=== PATIENT | male | born 1955 | race Caucasian/White ===

== ENCOUNTER → 2018-11-15 07:05 | Outpatient (CLI) | payer OTHER, SELFPAY ==
[2018-11-15 08:09] LABS: Add Manual Diff / Slide Review NO; Basophils Absolute Auto 100 /uL (0-100); Basophils Percent Auto 0.9 % (0-2); Eosinophils Absolute Auto 500 /uL (0-450); Eosinophils Percent Auto 5.7 % (2-4); Hematocrit 45.7 % (41-53); Hemoglobin 15.6 g/dL (13.5-17.5); Lymphocytes Absolute Auto 2800 /uL (1100-4500); Lymphocytes Percent Auto 29.6 % (25-40); Mean Corpuscular Hemoglobin 31.5 PG (26-34); Mean Corpuscular Volume 92.5 fL (80-100); Monocytes Absolute Auto 800 /uL (0-900); Monocytes Percent Auto 8.5 % (3-14); Neutrophils Absolute Auto 5200 /uL (1500-7000); Neutrophils Percent Auto 55.3 % (50-75); Platelet Count 182 X10^3/uL (150-400); Red Blood Cell Count 4.94 X10^6/uL (4.5-5.9); Red Cell Distribution Width 13.1 % (11.6-14.8); White Blood Cell Count 9.4 X10^3/uL (4.5-11.0)
[2018-11-15 08:17] LABS: Alanine Aminotransferase 26 IU/L (21-72); Albumin 4.2 g/dL (3.5-5.0); Albumin Globulin Ratio 1.4 (1.0-2.8); Alkaline Phosphatase 50 U/L (38-126); Aspartate Aminotransferase 23 IU/L (17-59); Bilirubin Total 1.1 mg/dL (0.2-1.3); Blood Urea Nitrogen 16 mg/dL (9-20); Calcium 8.9 mg/dL (8.4-10.2); Carbon Dioxide 26 mmol/L (22-32); Chloride 105 mmol/L (98-107); Cholesterol 119 mg/dL (140-199); Estimated Glomerular Filt Rate > 60.0 mL/min (>60); Glucose 100 mg/dL (80-110); HDL Cholesterol 51 mg/dL (40-60); HEMOLYSIS < 15 (0-50); LDL Cholesterol Calculated 51 mg/dL (<100); Potassium 4.4 mmol/L (3.4-5.1); Sodium 140 mmol/L (137-145); Total Protein 7.2 g/dL (6.3-8.2); Triglycerides 84 mg/dL (35-150)
[2018-11-15 08:43] LABS: Prostate Specific Antigen 1.23 ng/mL (0.10-4.00)
[2018-11-18 12:27] LABS: Mitogen-NIL 6.67 IU/mL; NIL 0.01 IU/mL; QuantiFERON TB NEGATIVE (Negative); TB1-NIL 0.09 IU/mL; TB2-NIL 0.04 IU/mL
== END ==
PROVIDERS: Family Provider Dermatology; PCP Internal Medicine; Visit Provider Urology
DX: I10 Essential (primary) hypertension (principal); E78.00 Pure hypercholesterolemia, unspecified; M15.0 Primary generalized (osteo)arthritis; L40.9 Psoriasis, unspecified; L40.0 Psoriasis vulgaris; Z12.5 Encounter for screening for malignant neoplasm of prostate
CPT/HCPCS: 36415; 80053; 80061; 84153; 85025; 86480

== ENCOUNTER 2018-11-21 10:15 | Outpatient (RCR) | payer OTHER, SELFPAY ==
--- NOTE | 2018-09-14 15:14 | PT.OIE ---
Current Diagnoses Disorder of muscle, unspecified (09/14/18) Plantar fascial fibromatosis (09/14/18) Pain in unspecified foot (09/14/18) Provider Visit Care Team Role Provider Type Ryan Muniz MD Primary Care Provider Physician Specialty: Family Practice Address: [address] [place], [address] Email: [email or web address] Santiago Owen DPM Attending Provider Physician Specialty: Podiatry Address: [address] [place] [address], [id number] Email: [email or web address] Physical Therapy Initial Evaluation PT-OP-A Visit Information Start: 09/14/18 07:35 Freq: Status: Active Protocol: Document 09/14/18 13:00 AMB (Rec: 09/14/18 14:28 AMB [email or web address]) Out-Patient Physical Therapy Visit Information Visit Information Visit Type Initial Evaluation Visit Start Time 13:00 Visit Stop Time 13:50 Total Visit Minutes 50 Visit Number 1 PT-OP-B Current Condition Start: 09/14/18 07:35 Freq: Status: Active Protocol: Document 09/14/18 13:00 AMB (Rec: 09/14/18 13:13 AMB [id number]) Current Condition History of Current Condition Onset Date 4 years ago Current Complaints bilateral foot arch pain History of Current Condition Carlos states that his plantar fasciitis is better than it was 4 years ago when it started. He recently moved to [place] from [place] after retiring and has been swimming more which is helping . He saw the doctor because his previous orthotics were hurting more than helping. He notes that while his symptoms have improved, he continues to have pain with standing and walking. This limits the distance of hiking. He reports 0/10 pain in sitting, 1/10 pain in standing immediately upon standing, and after 2-3 miles of hiking, he wants to be done with hikng because of inner arch pain. His doctor told him that his overall tightness is affecting his feet, so he is looking for help with a lower extremity stretching program, and anything else that can help him increase his standing and hiking tolerance. Prior Treatments and Tests Prior PT helped, previous orthotics were hurting, so now using green super feet Treatment Goals Patient/Caregiver Goals Hike and stand without pain Prior Functional Status Baseline Function- ADL's Independent Baseline Function- Mobility Independent Current Functional Impairments (Reported) Functional Limitations- Mobility/Gait Pain with walking more than a couple miles. Personal Factors Other Personal Factors That May Effect hypertension, back pain, high Therapy/Recovery deductible PT-OP-C Subjective Start: 09/14/18 07:35 Freq: Status: Active Protocol: Document 09/14/18 13:00 AMB (Rec: 09/14/18 14:28 AMB [email or web address]) Patient Questionnaires Lower Extremity Functional Scale LEFS Score 70 LEFS Impairment 1 to 19% Impaired (Score 63-79 ) OP-PT Pain Assessment Location Medial Foot Pain Location Details bilateral arches Intensity 3 Scale Used Numeric (1 - 10) Description Burning PT-OP-J Posture/Palpation/Skin Start: 09/14/18 07:35 Freq: Status: Active Protocol: Document 09/14/18 13:00 AMB (Rec: 09/14/18 14:57 AMB [email or web address]) Palpation Assessment Location One Palpation Details No heel pain with palpation. R Leg appears short in supine. Increased wear on R shoe in comparison to L. Good forefoot mobility. PT-OP-K Range of Motion Start: 09/14/18 07:35 Freq: Status: Active Protocol: Document 09/14/18 13:00 AMB (Rec: 09/14/18 14:54 AMB [email or web address]) Hip Goniometric Range of Motion Hip Measured in Degrees Right Passive Testing Position Supine Straight Leg Raise 60 Left Passive Testing Position Supine Straight Leg Raise 45 Ankle and Foot Goniometric Range of Motion Ankle and Foot Measured in Degrees Right Active Testing Position Sitting Dorsiflexion with Knee Flexed 10 Plantarflexion 40 Inversion 20 Eversion 20 Left Active Testing Position Sitting Dorsiflexion with Knee Flexed 10 Plantarflexion 35 Inversion 15 Eversion 20 PT-OP-L Special Tests Start: 09/14/18 07:35 Freq: Status: Active Protocol: Document 09/14/18 13:00 AMB (Rec: 09/14/18 14:58 AMB [email or web address]) Special Tests Other Special Tests Special Tests Windlass negative bilaterally in weightbearing. PT-OP-M Strength Start: 09/14/18 07:35 Freq: Status: Active Protocol: Document 09/14/18 13:00 AMB (Rec: 09/14/18 14:54 AMB [email or web address]) Ankle/Foot Strength Ankle and Foot Manual Muscle Testing Left Dorsiflexion (L4) 5 Normal Plantarflexion (S1) 5 Normal Inversion 3+ Fair+ Eversion (S1) 4 Good Right Dorsiflexion (L4) 5 Normal Plantarflexion (S1) 5 Normal Inversion 4 Good Eversion (S1) 4 Good PT-OP-Q Treatments Start: 09/14/18 07:35 Freq: Status: Active Protocol: Document 09/14/18 13:00 AMB (Rec: 09/14/18 14:54 AMB [email or web address]) Therapeutic Exercises Sitting Exercises 2 Sitting Exercise Name V sit adductor stretch Reps/Minutes 30x2 1 Sitting Exercise Name inversion Resistance #3 t band Reps/Minutes 2x10 Standing Exercises 1 Standing Exercise Name calf stretch toes against wall Reps/Minutes 30x2 Other Exercises 1 Other Exercise Name downward dog Reps/Minutes 15x2 PT-OP-T Assessment and Plan Start: 09/14/18 07:35 Freq: Status: Active Protocol: Document 09/14/18 13:00 AMB (Rec: 09/14/18 15:14 AMB [email or web address]) Physical Therapy Assessment Rehab Potential Rehabilitation Potential Good Evaluation Complexity Number of Personal Factors/Comorbidities 1-2 Number of Body Systems Impaired 4 or More Clinical Presentation at Evaluation Stable Impairments Impairments Functional Mobility Gait Pain Posture ROM Strength Goals Two Impairment activity tolerance Short Term Goal (STG) Carlos will stand for 5 minutes without foot pain. STG Duration 5 weeks Skilled Nursing Goal (LTG) Carlos will hike for 5 miles with 2/10 foot pain or less. LTG Duration 10 weeks One Impairment ROM Short Term Goal (STG) Carlos will increase his straight leg raise to 60 degrees bilaterally. STG Duration 5 weeks Skilled Nursing Goal (LTG) Carlos will be independent with a stretching and strengthening HEP. LTG Duration 10 weeks Assessment Summary Assessment Carlos presents to PT with L>R tightness in his trunk and lower extremities. This is a factor in his chronic bilateral arch pain. He also presents with functional leg length discrepancy (L leg short) and increased wear on his right shoe, along with left tibialis posterior weakness. He will benefit from a specific stretching and strengthening program to address these impairments both on land and in the pool as he has found the pool to be very helpful with his pain. Physical Therapy Plan Frequency and Duration Frequency of Treatment 2x/Week Duration of Treatment 10 weeks Plan of Care Start Date 09/14/18 Plan of Care End Date 11/23/18 Therapeutic Interventions Therapeutic Interventions Aquatic Therapy Gait Training Joint Mobilizations Manual Therapy Neuromuscular Re-education Self-Care/Home Management Soft Tissue Mobilization Therapeutic Activities Therapeutic Exercises Modalities Cold Pack/Ice Massage Electric Stimulation Ultrasound Next Visit Focus/Plan Next Note Type Treatment Note Next Visit Plan Progress stretching HEP- QL stretch on L, balance training for foot strengthening.
--- NOTE | 2018-09-14 15:15 | PT.OPPOC ---
Current Diagnoses Disorder of muscle, unspecified (09/14/18) Plantar fascial fibromatosis (09/14/18) Pain in unspecified foot (09/14/18) Provider Visit Care Team Role Provider Type Ryan Muniz MD Primary Care Provider Physician Specialty: Family Practice Address: [address] [place], [address] Email: [email or web address] Santiago Owen DPM Attending Provider Physician Specialty: Podiatry Address: [address] [place] [address], [phone] Email: [email or web address] Plan Of Care PT-OP-T Assessment and Plan Start: 09/14/18 07:35 Freq: Status: Active Protocol: Document 09/14/18 13:00 AMB (Rec: 09/14/18 15:14 AMB [email or web address]) Physical Therapy Assessment Rehab Potential Rehabilitation Potential Good Evaluation Complexity Number of Personal Factors/Comorbidities 1-2 Number of Body Systems Impaired 4 or More Clinical Presentation at Evaluation Stable Impairments Impairments Functional Mobility Gait Pain Posture ROM Strength Goals Two Impairment activity tolerance Short Term Goal (STG) Carlos will stand for 5 minutes without foot pain. STG Duration 5 weeks Auditing Manager Goal (LTG) Carlos will hike for 5 miles with 2/10 foot pain or less. LTG Duration 10 weeks One Impairment ROM Short Term Goal (STG) Carlos will increase his straight leg raise to 60 degrees bilaterally. STG Duration 5 weeks Jail Goal (LTG) Carlos will be independent with a stretching and strengthening HEP. LTG Duration 10 weeks Assessment Summary Assessment Carlos presents to PT with L>R tightness in his trunk and lower extremities. This is a factor in his chronic bilateral arch pain. He also presents with functional leg length discrepancy (L leg short) and increased wear on his right shoe, along with left tibialis posterior weakness. He will benefit from a specific stretching and strengthening program to address these impairments both on land and in the pool as he has found the pool to be very helpful with his pain. Physical Therapy Plan Frequency and Duration Frequency of Treatment 2x/Week Duration of Treatment 10 weeks Plan of Care Start Date 09/14/18 Plan of Care End Date 11/23/18 Therapeutic Interventions Therapeutic Interventions Aquatic Therapy Gait Training Joint Mobilizations Manual Therapy Neuromuscular Re-education Self-Care/Home Management Soft Tissue Mobilization Therapeutic Activities Therapeutic Exercises Modalities Cold Pack/Ice Massage Electric Stimulation Ultrasound Next Visit Focus/Plan Next Note Type Treatment Note Next Visit Plan Progress stretching HEP- QL stretch on L, balance training for foot strengthening. Plan of Care Dates Plan of Care Start Date 09/14/18 Plan of Care End Date 11/23/18 Please Sign and Return: I have reviewed this Plan of Care and certify that the skilled therapy services above are required to meet the patient?s needs. Physician Signature Date Printed Name and Credentials Clinical Instructor Signature Printed Name and Credentials
--- NOTE | 2018-10-03 15:56 | PT.OTN ---
Current Diagnoses Disorder of muscle, unspecified (10/03/18) Plantar fascial fibromatosis (10/03/18) Pain in unspecified foot (10/03/18) Physical Therapy Treatment Note PT-OP-A Visit Information Start: 09/14/18 07:35 Freq: Status: Active Protocol: Document 10/03/18 09:45 BS (Rec: 10/03/18 12:07 BS [id number]) Out-Patient Physical Therapy Visit Information Visit Information Visit Type Treatment Note Visit Start Time 09:45 Visit Stop Time 10:28 Total Visit Minutes 43 Visit Number 2 PT-OP-B Current Condition Start: 09/14/18 07:35 Freq: Status: Active Protocol: Document 09/14/18 13:00 AMB (Rec: 09/14/18 13:13 AMB [id number]) Current Condition History of Current Condition Onset Date 4 years ago Current Complaints bilateral foot arch pain History of Current Condition Carlos states that his plantar fasciitis is better than it was 4 years ago when it started. He recently moved to [place] from [place] after retiring and has been swimming more which is helping . He saw the doctor because his previous orthotics were hurting more than helping. He notes that while his symptoms have improved, he continues to have pain with standing and walking. This limits the distance of hiking. He reports 0/10 pain in sitting, 1/10 pain in standing immediately upon standing, and after 2-3 miles of hiking, he wants to be done with hikng because of inner arch pain. His doctor told him that his overall tightness is affecting his feet, so he is looking for help with a lower extremity stretching program, and anything else that can help him increase his standing and hiking tolerance. Prior Treatments and Tests Prior PT helped, previous orthotics were hurting, so now using green super feet Treatment Goals Patient/Caregiver Goals Hike and stand without pain Prior Functional Status Baseline Function- ADL's Independent Baseline Function- Mobility Independent Current Functional Impairments (Reported) Functional Limitations- Mobility/Gait Pain with walking more than a couple miles. Personal Factors Other Personal Factors That May Effect hypertension, back pain, high Therapy/Recovery deductible PT-OP-C Subjective Start: 09/14/18 07:35 Freq: Status: Active Protocol: Document 10/03/18 09:45 BS (Rec: 10/03/18 12:08 BS [id number]) OP-PT Subjective Patient Comments Patient Comments Pt has many questions regarding stretching program and different variations that he can do at home. PT-OP-J Posture/Palpation/Skin Start: 09/14/18 07:35 Freq: Status: Active Protocol: Document 09/14/18 13:00 AMB (Rec: 09/14/18 14:57 AMB [email or web address]) Palpation Assessment Location One Palpation Details No heel pain with palpation. R Leg appears short in supine. Increased wear on R shoe in comparison to L. Good forefoot mobility. PT-OP-K Range of Motion Start: 09/14/18 07:35 Freq: Status: Active Protocol: Document 09/14/18 13:00 AMB (Rec: 09/14/18 14:54 AMB [email or web address]) Hip Goniometric Range of Motion Hip Measured in Degrees Right Passive Testing Position Supine Straight Leg Raise 60 Left Passive Testing Position Supine Straight Leg Raise 45 Ankle and Foot Goniometric Range of Motion Ankle and Foot Measured in Degrees Right Active Testing Position Sitting Dorsiflexion with Knee Flexed 10 Plantarflexion 40 Inversion 20 Eversion 20 Left Active Testing Position Sitting Dorsiflexion with Knee Flexed 10 Plantarflexion 35 Inversion 15 Eversion 20 PT-OP-L Special Tests Start: 09/14/18 07:35 Freq: Status: Active Protocol: Document 09/14/18 13:00 AMB (Rec: 09/14/18 14:58 AMB [email or web address]) Special Tests Other Special Tests Special Tests Windlass negative bilaterally in weightbearing. PT-OP-M Strength Start: 09/14/18 07:35 Freq: Status: Active Protocol: Document 09/14/18 13:00 AMB (Rec: 09/14/18 14:54 AMB [email or web address]) Ankle/Foot Strength Ankle and Foot Manual Muscle Testing Left Dorsiflexion (L4) 5 Normal Plantarflexion (S1) 5 Normal Inversion 3+ Fair+ Eversion (S1) 4 Good Right Dorsiflexion (L4) 5 Normal Plantarflexion (S1) 5 Normal Inversion 4 Good Eversion (S1) 4 Good PT-OP-Q Treatments Start: 09/14/18 07:35 Freq: Status: Active Protocol: Document 10/03/18 09:45 BS (Rec: 10/03/18 12:07 BS [id number]) Gym Equipment Shuttle Balance 1 Details Shuttle Balance: ant/post/ lateral Reps/Duration x2 min each Comments Red Therapeutic Exercises Sitting Exercises 3 Sitting Exercise Name Sitting hamstring stretch Reps/Minutes 2x30 Comments VC/TC for flat back posture 2 Sitting Exercise Name V sit adductor stretch Reps/Minutes 30x2 Comments TC/VC for correct form 1 Sitting Exercise Name L ankle inversion Resistance #3 t band Reps/Minutes 2x10 Standing Exercises 3 Standing Exercise Name Standing adductor stretch Reps/Minutes 2x30 2 Standing Exercise Name Standing hamstring stretch Reps/Minutes 3x30 each Comments at stairs 1 Standing Exercise Name gastroc/soleus stretch variations Reps/Minutes 30x2 each Comments standing toe against step, calf drop off of step, knee bent soleus stretch Other Exercises 1 Other Exercise Name downward dog Reps/Minutes 15x2, x10 bent knee alternations Comments VC/TC for correct technique Neuro Re-Education Treatment Balance Activities 1 Details Single limb stance Surface firm Reps/Duration x5 reps each leg Comments poor SL stance <10 seconds with each LE. PT-OP-T Assessment and Plan Start: 09/14/18 07:35 Freq: Status: Active Protocol: Document 10/03/18 09:45 BS (Rec: 10/03/18 12:07 BS [email or web address]) Physical Therapy Assessment Assessment Summary Assessment PT focused on B LE stretching program. Pt required a lot of education regarding correct form and variations of stretches he can do on his own for B LE muscle tightness. Pt also demo's poor single limb balance which will be further addressed next session. Physical Therapy Plan Next Visit Focus/Plan Next Note Type Treatment Note Next Visit Plan Review home stretching program and form with each. Balance training, intrinsic foot strengthening exercises.
--- NOTE | 2018-10-08 13:01 | PT.OTN ---
Current Diagnoses Disorder of muscle, unspecified (10/08/18) Plantar fascial fibromatosis (10/08/18) Pain in unspecified foot (10/08/18) Physical Therapy Treatment Note PT-OP-A Visit Information Start: 09/14/18 07:35 Freq: Status: Active Protocol: Document 10/08/18 09:45 BS (Rec: 10/08/18 09:48 BS [email or web address]) Out-Patient Physical Therapy Visit Information Visit Information Visit Type Treatment Note Visit Start Time 09:10 Visit Stop Time 09:45 Total Visit Minutes 35 Visit Number 3 PT-OP-B Current Condition Start: 09/14/18 07:35 Freq: Status: Active Protocol: Document 09/14/18 13:00 AMB (Rec: 09/14/18 13:13 AMB [id number]) Current Condition History of Current Condition Onset Date 4 years ago Current Complaints bilateral foot arch pain History of Current Condition Carlos states that his plantar fasciitis is better than it was 4 years ago when it started. He recently moved to [place] from [place] after retiring and has been swimming more which is helping . He saw the doctor because his previous orthotics were hurting more than helping. He notes that while his symptoms have improved, he continues to have pain with standing and walking. This limits the distance of hiking. He reports 0/10 pain in sitting, 1/10 pain in standing immediately upon standing, and after 2-3 miles of hiking, he wants to be done with hikng because of inner arch pain. His doctor told him that his overall tightness is affecting his feet, so he is looking for help with a lower extremity stretching program, and anything else that can help him increase his standing and hiking tolerance. Prior Treatments and Tests Prior PT helped, previous orthotics were hurting, so now using green super feet Treatment Goals Patient/Caregiver Goals Hike and stand without pain Prior Functional Status Baseline Function- ADL's Independent Baseline Function- Mobility Independent Current Functional Impairments (Reported) Functional Limitations- Mobility/Gait Pain with walking more than a couple miles. Personal Factors Other Personal Factors That May Effect hypertension, back pain, high Therapy/Recovery deductible PT-OP-C Subjective Start: 09/14/18 07:35 Freq: Status: Active Protocol: Document 10/08/18 09:45 BS (Rec: 10/08/18 09:48 BS [email or web address]) OP-PT Subjective Patient Comments Patient Comments Pt states he has been compliant with home stretching program. He still has questions regarding ankle tband exercises. PT-OP-J Posture/Palpation/Skin Start: 09/14/18 07:35 Freq: Status: Active Protocol: Document 09/14/18 13:00 AMB (Rec: 09/14/18 14:57 AMB [email or web address]) Palpation Assessment Location One Palpation Details No heel pain with palpation. R Leg appears short in supine. Increased wear on R shoe in comparison to L. Good forefoot mobility. PT-OP-K Range of Motion Start: 09/14/18 07:35 Freq: Status: Active Protocol: Document 09/14/18 13:00 AMB (Rec: 09/14/18 14:54 AMB [email or web address]) Hip Goniometric Range of Motion Hip Measured in Degrees Right Passive Testing Position Supine Straight Leg Raise 60 Left Passive Testing Position Supine Straight Leg Raise 45 Ankle and Foot Goniometric Range of Motion Ankle and Foot Measured in Degrees Right Active Testing Position Sitting Dorsiflexion with Knee Flexed 10 Plantarflexion 40 Inversion 20 Eversion 20 Left Active Testing Position Sitting Dorsiflexion with Knee Flexed 10 Plantarflexion 35 Inversion 15 Eversion 20 PT-OP-L Special Tests Start: 09/14/18 07:35 Freq: Status: Active Protocol: Document 09/14/18 13:00 AMB (Rec: 09/14/18 14:58 AMB [email or web address]) Special Tests Other Special Tests Special Tests Windlass negative bilaterally in weightbearing. PT-OP-M Strength Start: 09/14/18 07:35 Freq: Status: Active Protocol: Document 09/14/18 13:00 AMB (Rec: 09/14/18 14:54 AMB [email or web address]) Ankle/Foot Strength Ankle and Foot Manual Muscle Testing Left Dorsiflexion (L4) 5 Normal Plantarflexion (S1) 5 Normal Inversion 3+ Fair+ Eversion (S1) 4 Good Right Dorsiflexion (L4) 5 Normal Plantarflexion (S1) 5 Normal Inversion 4 Good Eversion (S1) 4 Good PT-OP-Q Treatments Start: 09/14/18 07:35 Freq: Status: Active Protocol: Document 10/08/18 09:45 BS (Rec: 10/08/18 11:52 BS [email or web address]) Gym Equipment Shuttle Balance 1 Details Shuttle Balance: ant/post/ lateral Reps/Duration x2 min each Comments Red. Occasional UE support required for steadying. Therapeutic Exercises Sitting Exercises 1 Sitting Exercise Name L ankle inversion Resistance #3 t band Reps/Minutes 2x10 Comments VCs for correct technique. Standing Exercises 3 Standing Exercise Name Standing adductor stretch at stairs Side bilateral Reps/Minutes 2x30 each 2 Standing Exercise Name Standing hamstring stretch at stairs Side bilateral Reps/Minutes 2x30 each 1 Standing Exercise Name Gastroc/Soleus stretch at stairs Side bilateral Reps/Minutes 2x30 each Comments knee straight and knee bent. VCs for correct form Other Exercises 1 Other Exercise Name downward dog Side bilateral Reps/Minutes x10 bent knee alternations Comments Pt has trouble with position due to B HS tightness Neuro Re-Education Treatment Balance Activities 3 Details Exaggerated marching in tandem Surface firm, barefoot Reps/Duration 4 laps in parallel bars Comments Emphasize slow and control, hold at top of hip flexion for increased balance challenge 2 Details Tandem Walking Surface firm, barefoot 1 Details Single limb stance Surface firm and foam. Barefoot Reps/Duration x10 reps each for max time Comments poor SL stance <15 seconds with each LE. PT-OP-T Assessment and Plan Start: 09/14/18 07:35 Freq: Status: Active Protocol: Document 10/08/18 09:45 BS (Rec: 10/08/18 11:52 BS [email or web address]) Physical Therapy Assessment Assessment Summary Assessment Reviewed stretching program with patient and he reports he is becoming more independent with this. Incorporated balance challenging activities today as pt demo's decreased balance especially single limb . Pt's single limb balance has improved since IE. Physical Therapy Plan Next Visit Focus/Plan Next Note Type Treatment Note Next Visit Plan Stretching program, single limb balance challenging activities. Will see pt when he returns from vacation to assess progress and then he plans to transition to aquatic therapy.
--- NOTE | 2018-10-29 17:02 | PT.OTN ---
Current Diagnoses Disorder of muscle, unspecified (10/08/18) Plantar fascial fibromatosis (10/08/18) Pain in unspecified foot (10/08/18) Physical Therapy Treatment Note PT-OP-A Visit Information Start: 09/14/18 07:35 Freq: Status: Active Protocol: Document 10/29/18 11:00 SAK (Rec: 10/29/18 16:51 SAK [id number]) Out-Patient Physical Therapy Visit Information Visit Information Visit Type Treatment Note Visit Start Time 09:10 Visit Stop Time 09:45 Total Visit Minutes 45 Visit Number 4 PT-OP-B Current Condition Start: 09/14/18 07:35 Freq: Status: Active Protocol: Document 09/14/18 13:00 AMB (Rec: 09/14/18 13:13 AMB [id number]) Current Condition History of Current Condition Onset Date 4 years ago Current Complaints bilateral foot arch pain History of Current Condition Carlos states that his plantar fasciitis is better than it was 4 years ago when it started. He recently moved to [place] from [place] after retiring and has been swimming more which is helping . He saw the doctor because his previous orthotics were hurting more than helping. He notes that while his symptoms have improved, he continues to have pain with standing and walking. This limits the distance of hiking. He reports 0/10 pain in sitting, 1/10 pain in standing immediately upon standing, and after 2-3 miles of hiking, he wants to be done with hikng because of inner arch pain. His doctor told him that his overall tightness is affecting his feet, so he is looking for help with a lower extremity stretching program, and anything else that can help him increase his standing and hiking tolerance. Prior Treatments and Tests Prior PT helped, previous orthotics were hurting, so now using green super feet Treatment Goals Patient/Caregiver Goals Hike and stand without pain Prior Functional Status Baseline Function- ADL's Independent Baseline Function- Mobility Independent Current Functional Impairments (Reported) Functional Limitations- Mobility/Gait Pain with walking more than a couple miles. Personal Factors Other Personal Factors That May Effect hypertension, back pain, high Therapy/Recovery deductible PT-OP-C Subjective Start: 09/14/18 07:35 Freq: Status: Active Protocol: Document 10/29/18 11:00 SAK (Rec: 10/29/18 16:51 SAK [id number]) OP-PT Subjective Patient Comments Patient Comments States he is hoping to get back to being able to hike further. No pain with swimming, wants to know what else he can do in the pool. Has been compliant with HEP. Some dec in pain but hiking/ walking still limited. PT-OP-J Posture/Palpation/Skin Start: 09/14/18 07:35 Freq: Status: Active Protocol: Document 09/14/18 13:00 AMB (Rec: 09/14/18 14:57 AMB [email or web address]) Palpation Assessment Location One Palpation Details No heel pain with palpation. R Leg appears short in supine. Increased wear on R shoe in comparison to L. Good forefoot mobility. PT-OP-K Range of Motion Start: 09/14/18 07:35 Freq: Status: Active Protocol: Document 09/14/18 13:00 AMB (Rec: 09/14/18 14:54 AMB [email or web address]) Hip Goniometric Range of Motion Hip Measured in Degrees Right Passive Testing Position Supine Straight Leg Raise 60 Left Passive Testing Position Supine Straight Leg Raise 45 Ankle and Foot Goniometric Range of Motion Ankle and Foot Measured in Degrees Right Active Testing Position Sitting Dorsiflexion with Knee Flexed 10 Plantarflexion 40 Inversion 20 Eversion 20 Left Active Testing Position Sitting Dorsiflexion with Knee Flexed 10 Plantarflexion 35 Inversion 15 Eversion 20 PT-OP-L Special Tests Start: 09/14/18 07:35 Freq: Status: Active Protocol: Document 09/14/18 13:00 AMB (Rec: 09/14/18 14:58 AMB [email or web address]) Special Tests Other Special Tests Special Tests Windlass negative bilaterally in weightbearing. PT-OP-M Strength Start: 09/14/18 07:35 Freq: Status: Active Protocol: Document 09/14/18 13:00 AMB (Rec: 09/14/18 14:54 AMB [email or web address]) Ankle/Foot Strength Ankle and Foot Manual Muscle Testing Left Dorsiflexion (L4) 5 Normal Plantarflexion (S1) 5 Normal Inversion 3+ Fair+ Eversion (S1) 4 Good Right Dorsiflexion (L4) 5 Normal Plantarflexion (S1) 5 Normal Inversion 4 Good Eversion (S1) 4 Good PT-OP-Q Treatments Start: 09/14/18 07:35 Freq: Status: Active Protocol: Document 10/08/18 09:45 BS (Rec: 10/08/18 11:52 BS [email or web address]) Gym Equipment Shuttle Balance 1 Details Shuttle Balance: ant/post/ lateral Reps/Duration x2 min each Comments Red. Occasional UE support required for steadying. Therapeutic Exercises Sitting Exercises 1 Sitting Exercise Name L ankle inversion Resistance #3 t band Reps/Minutes 2x10 Comments VCs for correct technique. Standing Exercises 3 Standing Exercise Name Standing adductor stretch at stairs Side bilateral Reps/Minutes 2x30 each 2 Standing Exercise Name Standing hamstring stretch at stairs Side bilateral Reps/Minutes 2x30 each 1 Standing Exercise Name Gastroc/Soleus stretch at stairs Side bilateral Reps/Minutes 2x30 each Comments knee straight and knee bent. VCs for correct form Other Exercises 1 Other Exercise Name downward dog Side bilateral Reps/Minutes x10 bent knee alternations Comments Pt has trouble with position due to B HS tightness Neuro Re-Education Treatment Balance Activities 3 Details Exaggerated marching in tandem Surface firm, barefoot Reps/Duration 4 laps in parallel bars Comments Emphasize slow and control, hold at top of hip flexion for increased balance challenge 2 Details Tandem Walking Surface firm, barefoot 1 Details Single limb stance Surface firm and foam. Barefoot Reps/Duration x10 reps each for max time Comments poor SL stance <15 seconds with each LE. PT-OP-S Aquatic Treatment Start: 10/29/18 16:51 Freq: Status: Active Protocol: Document 10/29/18 11:00 SAK (Rec: 10/29/18 16:58 SAK [id number]) Aquatics Treatment Pool Entry/Exit Pool Entry/Exit Method Stairs Assistance Independent Water Walking walk with fins Water Level Chest Level Walking Equipment short fins forward, march, straight leg march Water Level Chest Level Level of Assistance Verbal Cues Lower Extremity Exercises hip flex/ext, ab/ad, circles Body Position Standing Water Level Chest Level Reps/Duration 10x ea Lower Extremity Stretches HS, ITB, hip add, quad Body Position Standing Water Level Chest Level Equipment Small Noodle Reps/Duration 2x HC stretch Equipment Small Noodle Reps/Duration 2x Comments pool wall, noodle Balance SLS Body Position Standing Water Level Chest Level [place] Activities [place] Activities Bicycle Cross Country Running Hip Abduction/Adduction Sit Kicks Other Activities Run with fins Equipment flotation belt (XL), Duration 12 min Comments included 6 min of intervals 15 :30 Aquatic Yoga Aquatic Yoga Downward Dog (Wall) Duration (Minutes) 2 PT-OP-T Assessment and Plan Start: 09/14/18 07:35 Freq: Status: Active Protocol: Document 10/29/18 11:00 [facility] (Rec: 10/29/18 16:51 [facility] [id number]) Physical Therapy Assessment Goals Two Impairment activity tolerance Short Term Goal (STG) Carlos will stand for 5 minutes without foot pain. STG Duration 5 weeks Snf Goal (LTG) Carlos will hike for 5 miles with 2/10 foot pain or less. LTG Duration 10 weeks One Impairment ROM Short Term Goal (STG) Carlos will increase his straight leg raise to 60 degrees bilaterally. STG Duration 5 weeks Snf Goal (LTG) Carlos will be independent with a stretching and strengthening HEP. LTG Duration 10 weeks Assessment Summary Assessment Patient tolerated aquatic therapy well with emphasis on LE ROM and strengthening in gravity minimized and eliminated environment. Reported feeling stretch of his arches with cross-country ski with ankle df in deep water. Was instructed to ice heels and arches after session . SLS activities challenging. Physical Therapy Plan Frequency and Duration Frequency of Treatment 2x/Week Duration of Treatment 10 weeks Plan of Care Start Date 09/14/18 Plan of Care End Date 11/23/18 Therapeutic Interventions Therapeutic Interventions Aquatic Therapy Gait Training Joint Mobilizations Manual Therapy Neuromuscular Re-education Self-Care/Home Management Soft Tissue Mobilization Therapeutic Activities Therapeutic Exercises Modalities Cold Pack/Ice Massage Electric Stimulation Ultrasound Next Visit Focus/Plan Next Note Type Treatment Note Next Visit Plan Evaluate response to aquatic ex session. Consider addition of short foot exercise. Continue stretching, single leg balance activities.
--- NOTE | 2018-10-31 13:19 | PT.OTN ---
Current Diagnoses Disorder of muscle, unspecified (10/31/18) Plantar fascial fibromatosis (10/31/18) Pain in unspecified foot (10/31/18) Physical Therapy Treatment Note PT-OP-A Visit Information Start: 09/14/18 07:35 Freq: Status: Active Protocol: Document 10/31/18 10:30 BS (Rec: 10/31/18 11:52 BS [id number]) Out-Patient Physical Therapy Visit Information Visit Information Visit Type Treatment Note Visit Start Time 09:45 Visit Stop Time 10:30 Total Visit Minutes 45 Visit Number 5 PT-OP-B Current Condition Start: 09/14/18 07:35 Freq: Status: Active Protocol: Document 09/14/18 13:00 AMB (Rec: 09/14/18 13:13 AMB [id number]) Current Condition History of Current Condition Onset Date 4 years ago Current Complaints bilateral foot arch pain History of Current Condition Carlos states that his plantar fasciitis is better than it was 4 years ago when it started. He recently moved to [place] from [place] after retiring and has been swimming more which is helping . He saw the doctor because his previous orthotics were hurting more than helping. He notes that while his symptoms have improved, he continues to have pain with standing and walking. This limits the distance of hiking. He reports 0/10 pain in sitting, 1/10 pain in standing immediately upon standing, and after 2-3 miles of hiking, he wants to be done with hikng because of inner arch pain. His doctor told him that his overall tightness is affecting his feet, so he is looking for help with a lower extremity stretching program, and anything else that can help him increase his standing and hiking tolerance. Prior Treatments and Tests Prior PT helped, previous orthotics were hurting, so now using green super feet Treatment Goals Patient/Caregiver Goals Hike and stand without pain Prior Functional Status Baseline Function- ADL's Independent Baseline Function- Mobility Independent Current Functional Impairments (Reported) Functional Limitations- Mobility/Gait Pain with walking more than a couple miles. Personal Factors Other Personal Factors That May Effect hypertension, back pain, high Therapy/Recovery deductible PT-OP-C Subjective Start: 09/14/18 07:35 Freq: Status: Active Protocol: Document 10/31/18 10:30 BS (Rec: 10/31/18 11:52 BS [id number]) OP-PT Subjective Patient Comments Patient Comments Pt reports that he really enjoys his pool therapy and finds it beneficial. On vacation he did have some ankle and R arch pain after prolonged standing with fishing. PT-OP-J Posture/Palpation/Skin Start: 09/14/18 07:35 Freq: Status: Active Protocol: Document 09/14/18 13:00 AMB (Rec: 09/14/18 14:57 AMB [email or web address]) Palpation Assessment Location One Palpation Details No heel pain with palpation. R Leg appears short in supine. Increased wear on R shoe in comparison to L. Good forefoot mobility. PT-OP-K Range of Motion Start: 09/14/18 07:35 Freq: Status: Active Protocol: Document 09/14/18 13:00 AMB (Rec: 09/14/18 14:54 AMB [email or web address]) Hip Goniometric Range of Motion Hip Measured in Degrees Right Passive Testing Position Supine Straight Leg Raise 60 Left Passive Testing Position Supine Straight Leg Raise 45 Ankle and Foot Goniometric Range of Motion Ankle and Foot Measured in Degrees Right Active Testing Position Sitting Dorsiflexion with Knee Flexed 10 Plantarflexion 40 Inversion 20 Eversion 20 Left Active Testing Position Sitting Dorsiflexion with Knee Flexed 10 Plantarflexion 35 Inversion 15 Eversion 20 PT-OP-L Special Tests Start: 09/14/18 07:35 Freq: Status: Active Protocol: Document 09/14/18 13:00 AMB (Rec: 09/14/18 14:58 AMB [email or web address]) Special Tests Other Special Tests Special Tests Windlass negative bilaterally in weightbearing. PT-OP-M Strength Start: 09/14/18 07:35 Freq: Status: Active Protocol: Document 09/14/18 13:00 AMB (Rec: 09/14/18 14:54 AMB [email or web address]) Ankle/Foot Strength Ankle and Foot Manual Muscle Testing Left Dorsiflexion (L4) 5 Normal Plantarflexion (S1) 5 Normal Inversion 3+ Fair+ Eversion (S1) 4 Good Right Dorsiflexion (L4) 5 Normal Plantarflexion (S1) 5 Normal Inversion 4 Good Eversion (S1) 4 Good PT-OP-Q Treatments Start: 09/14/18 07:35 Freq: Status: Active Protocol: Document 10/31/18 10:30 BS (Rec: 10/31/18 11:59 BS [id number]) Gym Equipment Shuttle Balance 1 Details Shuttle Balance: ant/post/ lateral Comments Red. Occasional UE support required for steadying. Lateral more challenging. WBOS and NBOS. Ant/post with alternating arms. Therapeutic Exercises Supine Exercises 2 Supine Exercise Name AROM ankle inversion Side left Comments TCs for ankle motion only 1 Supine Exercise Name Ankle Inversion, DF Side left Equipment Used #1 band Reps/Minutes x20 Sitting Exercises 4 Sitting Exercise Name Towel curls Side left Reps/Minutes x20 Standing Exercises 4 Standing Exercise Name Ankle inversion Side left Equipment Used #3 band Reps/Minutes x10 Comments poor technique 2 Standing Exercise Name Standing hamstring stretch at stairs Side bilateral Reps/Minutes 2x30 each 1 Standing Exercise Name Gastroc/Soleus stretch at stairs Side bilateral Reps/Minutes 2x30 each Comments knee straight and knee bent. VCs for correct form Neuro Re-Education Treatment Balance Activities 1 Details Single limb stance Surface Firm. Reps/Duration x10 reps each for max time Comments SL balance improving, a few trials >15 seconds today. Self-Care/Home Management Treatment Education Other Education Assessed footwear and educated pt on proper footwear and heel-toe drop considerations with plantar fasciitis. Bottom of shoes severely worn. PT-OP-S Aquatic Treatment Start: 10/29/18 16:51 Freq: Status: Active Protocol: Document 10/29/18 11:00 [facility] (Rec: 10/29/18 16:58 [facility] [id number]) Aquatics Treatment Pool Entry/Exit Pool Entry/Exit Method Stairs Assistance Independent Water Walking walk with fins Water Level Chest Level Walking Equipment short fins forward, september, straight leg september Water Level Chest Level Level of Assistance Verbal Cues Lower Extremity Exercises hip flex/ext, ab/ad, circles Body Position Standing Water Level Chest Level Reps/Duration 10x ea Lower Extremity Stretches HS, ITB, hip add, quad Body Position Standing Water Level Chest Level Equipment Small Noodle Reps/Duration 2x HC stretch Equipment Small Noodle Reps/Duration 2x Comments pool wall, noodle Balance SLS Body Position Standing Water Level Chest Level [place] Activities [place] Activities Bicycle Cross Country Running Hip Abduction/Adduction Sit Kicks Other Activities Run with fins Equipment flotation belt (XL), Duration 12 min Comments included 6 min of intervals 15 :30 Aquatic Yoga Aquatic Yoga Downward Dog (Wall) Duration (Minutes) 2 PT-OP-T Assessment and Plan Start: 09/14/18 07:35 Freq: Status: Active Protocol: Document 10/31/18 10:30 BS (Rec: 10/31/18 11:52 BS [id number]) Physical Therapy Assessment Assessment Summary Assessment Pt had many questions regarding footwear and consideration of a shoe with a wider toe box. His shoes were severely worn on the bottoms, advised to get new shoes. Educated on heel-toe drop considerations with his plantar fasciitis history. Physical Therapy Plan Next Visit Focus/Plan Next Note Type Treatment Note Next Visit Plan Review HEP for stretching if needed. Assess progress and need for future visits, possible d/c.
--- NOTE | 2018-11-05 14:55 | PT.OTN ---
Current Diagnoses Disorder of muscle, unspecified (11/05/18) Plantar fascial fibromatosis (11/05/18) Pain in unspecified foot (11/05/18) Physical Therapy Treatment Note PT-OP-A Visit Information Start: 09/14/18 07:35 Freq: Status: Active Protocol: Document 11/05/18 10:15 LJ (Rec: 11/05/18 14:55 LJ [email or web address]) Out-Patient Physical Therapy Visit Information Visit Information Visit Type Aquatic Treatment Note Visit Start Time 10:15 Visit Stop Time 11:00 Total Visit Minutes 45 Visit Number 1 PT-OP-B Current Condition Start: 09/14/18 07:35 Freq: Status: Active Protocol: Document 09/14/18 13:00 AMB (Rec: 09/14/18 13:13 AMB [id number]) Current Condition History of Current Condition Onset Date 4 years ago Current Complaints bilateral foot arch pain History of Current Condition Carlos states that his plantar fasciitis is better than it was 4 years ago when it started. He recently moved to [place] from [place] after retiring and has been swimming more which is helping . He saw the doctor because his previous orthotics were hurting more than helping. He notes that while his symptoms have improved, he continues to have pain with standing and walking. This limits the distance of hiking. He reports 0/10 pain in sitting, 1/10 pain in standing immediately upon standing, and after 2-3 miles of hiking, he wants to be done with hikng because of inner arch pain. His doctor told him that his overall tightness is affecting his feet, so he is looking for help with a lower extremity stretching program, and anything else that can help him increase his standing and hiking tolerance. Prior Treatments and Tests Prior PT helped, previous orthotics were hurting, so now using green super feet Treatment Goals Patient/Caregiver Goals Hike and stand without pain Prior Functional Status Baseline Function- ADL's Independent Baseline Function- Mobility Independent Current Functional Impairments (Reported) Functional Limitations- Mobility/Gait Pain with walking more than a couple miles. Personal Factors Other Personal Factors That May Effect hypertension, back pain, high Therapy/Recovery deductible PT-OP-C Subjective Start: 09/14/18 07:35 Freq: Status: Active Protocol: Document 11/05/18 10:15 LJ (Rec: 11/05/18 14:55 LJ [email or web address]) OP-PT Subjective Patient Comments Patient Comments Pt reports doing stretching at home for PF. Feels he is tight all over especially in his backside. PT-OP-J Posture/Palpation/Skin Start: 09/14/18 07:35 Freq: Status: Active Protocol: Document 09/14/18 13:00 AMB (Rec: 09/14/18 14:57 AMB [email or web address]) Palpation Assessment Location One Palpation Details No heel pain with palpation. R Leg appears short in supine. Increased wear on R shoe in comparison to L. Good forefoot mobility. PT-OP-K Range of Motion Start: 09/14/18 07:35 Freq: Status: Active Protocol: Document 09/14/18 13:00 AMB (Rec: 09/14/18 14:54 AMB [email or web address]) Hip Goniometric Range of Motion Hip Measured in Degrees Right Passive Testing Position Supine Straight Leg Raise 60 Left Passive Testing Position Supine Straight Leg Raise 45 Ankle and Foot Goniometric Range of Motion Ankle and Foot Measured in Degrees Right Active Testing Position Sitting Dorsiflexion with Knee Flexed 10 Plantarflexion 40 Inversion 20 Eversion 20 Left Active Testing Position Sitting Dorsiflexion with Knee Flexed 10 Plantarflexion 35 Inversion 15 Eversion 20 PT-OP-L Special Tests Start: 09/14/18 07:35 Freq: Status: Active Protocol: Document 09/14/18 13:00 AMB (Rec: 09/14/18 14:58 AMB [email or web address]) Special Tests Other Special Tests Special Tests Windlass negative bilaterally in weightbearing. PT-OP-M Strength Start: 09/14/18 07:35 Freq: Status: Active Protocol: Document 09/14/18 13:00 AMB (Rec: 09/14/18 14:54 AMB [email or web address]) Ankle/Foot Strength Ankle and Foot Manual Muscle Testing Left Dorsiflexion (L4) 5 Normal Plantarflexion (S1) 5 Normal Inversion 3+ Fair+ Eversion (S1) 4 Good Right Dorsiflexion (L4) 5 Normal Plantarflexion (S1) 5 Normal Inversion 4 Good Eversion (S1) 4 Good PT-OP-Q Treatments Start: 09/14/18 07:35 Freq: Status: Active Protocol: Document 10/31/18 10:30 BS (Rec: 10/31/18 11:59 BS [id number]) Gym Equipment Shuttle Balance 1 Details Shuttle Balance: ant/post/ lateral Comments Red. Occasional UE support required for steadying. Lateral more challenging. WBOS and NBOS. Ant/post with alternating arms. Therapeutic Exercises Supine Exercises 2 Supine Exercise Name AROM ankle inversion Side left Comments TCs for ankle motion only 1 Supine Exercise Name Ankle Inversion, DF Side left Equipment Used #1 band Reps/Minutes x20 Sitting Exercises 4 Sitting Exercise Name Towel curls Side left Reps/Minutes x20 Standing Exercises 4 Standing Exercise Name Ankle inversion Side left Equipment Used #3 band Reps/Minutes x10 Comments poor technique 2 Standing Exercise Name Standing hamstring stretch at stairs Side bilateral Reps/Minutes 2x30 each 1 Standing Exercise Name Gastroc/Soleus stretch at stairs Side bilateral Reps/Minutes 2x30 each Comments knee straight and knee bent. VCs for correct form Neuro Re-Education Treatment Balance Activities 1 Details Single limb stance Surface Firm. Reps/Duration x10 reps each for max time Comments SL balance improving, a few trials >15 seconds today. Self-Care/Home Management Treatment Education Other Education Assessed footwear and educated pt on proper footwear and heel-toe drop considerations with plantar fasciitis. Bottom of shoes severely worn. PT-OP-S Aquatic Treatment Start: 10/29/18 16:51 Freq: Status: Active Protocol: Document 11/05/18 10:15 [facility] (Rec: 11/05/18 14:55 [facility] [email or web address]) Aquatics Treatment Pool Entry/Exit Pool Entry/Exit Method Stairs Assistance Independent Water Walking diagonal soldier september Water Level Chest Level Walking Equipment Resistance Fins Level of Assistance Verbal Cues Backwards Water Level Chest Level Level of Assistance Verbal Cues forward, september, straight leg september Water Level Chest Level Level of Assistance Verbal Cues Lower Extremity Exercises heel-toe raises bilat Reps/Duration 15 hip flex/ext, ab/ad, circles Body Position Standing Water Level Chest Level Equipment Resistance Fins Reps/Duration 10x ea Lower Extremity Stretches standing on sm BB w/rolling Reps/Duration 30 sec ITB stretcj w/lateral trunk flex-bilat Reps/Duration 2x contract relax LLE HS Reps/Duration 4x- 6 sec hold pin and stretch-peroneals LLE Comments at wall soleus-rocking foot s-t-s Reps/Duration 2x Comments at wall HS, ITB, hip add, quad Body Position Standing Water Level Chest Level Equipment Small Noodle Reps/Duration 2x HC stretch Equipment Small Noodle Reps/Duration 2x Comments pool wall, noodle Balance SLS Body Position Standing Water Level Chest Level [place] Activities [place] Activities Bicycle Cross Country Running Hip Abduction/Adduction Sit Kicks Other Activities Run with fin Equipment flotation belt (XL), Duration 12 min PT-OP-T Assessment and Plan Start: 09/14/18 07:35 Freq: Status: Active Protocol: Document 11/05/18 10:15 [facility] (Rec: 11/05/18 14:55 [facility] [email or web address]) Physical Therapy Assessment Goals Two Impairment activity tolerance Short Term Goal (STG) Carlos will stand for 5 minutes without foot pain. STG Duration 5 weeks Group Home Goal (LTG) Carlos will hike for 5 miles with 2/10 foot pain or less. LTG Duration 10 weeks One Impairment ROM Short Term Goal (STG) Carlos will increase his straight leg raise to 60 degrees bilaterally. STG Duration 5 weeks Technical Instructor Course Developer Goal (LTG) Carlos will be independent with a stretching and strengthening HEP. LTG Duration 10 weeks Assessment Summary Assessment Pt responded well to stretching and contract relax as well as pin and stretch therapy. Able to obtain greater ROM with LEs Physical Therapy Plan Frequency and Duration Frequency of Treatment 2x/Week Duration of Treatment 10 weeks Plan of Care Start Date 09/14/18 Plan of Care End Date 11/23/18 Therapeutic Interventions Therapeutic Interventions Aquatic Therapy Gait Training Joint Mobilizations Manual Therapy Neuromuscular Re-education Self-Care/Home Management Soft Tissue Mobilization Therapeutic Activities Therapeutic Exercises Modalities Cold Pack/Ice Massage Electric Stimulation Ultrasound Next Visit Focus/Plan Next Note Type Treatment Note Next Visit Plan If pt to d/c provide aquatic HEP and refer to community based aquatic exercises
--- NOTE | 2018-11-12 13:00 | PT.OTN ---
Current Diagnoses Disorder of muscle, unspecified (11/12/18) Plantar fascial fibromatosis (11/12/18) Pain in unspecified foot (11/12/18) Physical Therapy Treatment Note PT-OP-A Visit Information Start: 09/14/18 07:35 Freq: Status: Active Protocol: Document 11/12/18 10:30 BS (Rec: 11/12/18 11:47 BS [email or web address]) Out-Patient Physical Therapy Visit Information Visit Information Visit Type Treatment Note Visit Start Time 09:50 Visit Stop Time 10:30 Total Visit Minutes 40 Visit Number 7 PT-OP-B Current Condition Start: 09/14/18 07:35 Freq: Status: Active Protocol: Document 09/14/18 13:00 AMB (Rec: 09/14/18 13:13 AMB [id number]) Current Condition History of Current Condition Onset Date 4 years ago Current Complaints bilateral foot arch pain History of Current Condition Carlos states that his plantar fasciitis is better than it was 4 years ago when it started. He recently moved to [place] from [place] after retiring and has been swimming more which is helping . He saw the doctor because his previous orthotics were hurting more than helping. He notes that while his symptoms have improved, he continues to have pain with standing and walking. This limits the distance of hiking. He reports 0/10 pain in sitting, 1/10 pain in standing immediately upon standing, and after 2-3 miles of hiking, he wants to be done with hikng because of inner arch pain. His doctor told him that his overall tightness is affecting his feet, so he is looking for help with a lower extremity stretching program, and anything else that can help him increase his standing and hiking tolerance. Prior Treatments and Tests Prior PT helped, previous orthotics were hurting, so now using green super feet Treatment Goals Patient/Caregiver Goals Hike and stand without pain Prior Functional Status Baseline Function- ADL's Independent Baseline Function- Mobility Independent Current Functional Impairments (Reported) Functional Limitations- Mobility/Gait Pain with walking more than a couple miles. Personal Factors Other Personal Factors That May Effect hypertension, back pain, high Therapy/Recovery deductible PT-OP-C Subjective Start: 09/14/18 07:35 Freq: Status: Active Protocol: Document 11/12/18 10:30 BS (Rec: 11/12/18 11:47 BS [email or web address]) OP-PT Subjective Patient Comments Patient Comments Pt states taht he will see this afternoon. He continues to have some L plantar fascia and lower leg pain with walking on hard surfaces. PT-OP-D Balance Start: 09/14/18 07:35 Freq: Status: Active Protocol: Document 11/12/18 10:30 BS (Rec: 11/12/18 10:32 BS [id number]) Balance Tests Single Limb Standing Single Limb- Right 21 Single Limb- Left 18 Other Other Balance Tests Performed Pt initially unable to maintain single limb balance for less than 5 seconds at a time bilaterally. PT-OP-J Posture/Palpation/Skin Start: 09/14/18 07:35 Freq: Status: Active Protocol: Document 11/12/18 10:30 BS (Rec: 11/12/18 10:32 BS [id number]) Palpation Assessment Location One Palpation Details No heel pain or pain along medial arch or plantar fascia bilaterally. Some tenderness noted with palpation to L peroneals just above lateral malleolus. PT-OP-K Range of Motion Start: 09/14/18 07:35 Freq: Status: Active Protocol: Document 11/12/18 10:30 BS (Rec: 11/12/18 10:32 BS [id number]) Hip Goniometric Range of Motion Hip Measured in Degrees Right Passive Testing Position Supine Straight Leg Raise 78 Left Passive Testing Position Supine Straight Leg Raise 65 Ankle and Foot Goniometric Range of Motion Ankle and Foot Measured in Degrees Right Active Testing Position Sitting Dorsiflexion with Knee Flexed 16 Left Active Testing Position Sitting Dorsiflexion with Knee Flexed 15 PT-OP-L Special Tests Start: 09/14/18 07:35 Freq: Status: Active Protocol: Document 09/14/18 13:00 AMB (Rec: 09/14/18 14:58 AMB [email or web address]) Special Tests Other Special Tests Special Tests Windlass negative bilaterally in weightbearing. PT-OP-M Strength Start: 09/14/18 07:35 Freq: Status: Active Protocol: Document 11/12/18 10:30 BS (Rec: 11/12/18 11:50 BS [email or web address]) Ankle/Foot Strength Ankle and Foot Manual Muscle Testing Left Dorsiflexion (L4) 5 Normal Plantarflexion (S1) 5 Normal Inversion 5 Normal Eversion (S1) 5 Normal Right Dorsiflexion (L4) 5 Normal Plantarflexion (S1) 5 Normal Inversion 5 Normal Eversion (S1) 5 Normal PT-OP-Q Treatments Start: 09/14/18 07:35 Freq: Status: Active Protocol: Document 11/12/18 10:30 BS (Rec: 11/12/18 12:17 BS [email or web address]) Gym Equipment Shuttle Balance 1 Details Shuttle Balance: ant/post/ lateral Comments Red. Occasional UE support required for steadying. Lateral more challenging. WBOS and NBOS. Therapeutic Exercises Supine Exercises 3 Supine Exercise Name HS stretch Reps/Minutes x2 each leg Standing Exercises 3 Standing Exercise Name Standing adductor stretch at stairs Side bilateral Reps/Minutes 2x30 each 1 Standing Exercise Name Gastroc/Soleus stretch at stairs Side bilateral Reps/Minutes 2x30 each Comments knee straight and knee bent. VCs for correct form Neuro Re-Education Treatment Balance Activities 1 Details Single limb stance Surface Firm. Reps/Duration x3 to failure Comments SL balance improving, a few trials >15 seconds today. Self-Care/Home Management Treatment Education Other Education Verbally reviewed HEP, pt educated in proper footwear, OTC orthotics, and progression with HEP for B LE flexibility and balance. Assessed LE strength and ROM. PT-OP-T Assessment and Plan Start: 09/14/18 07:35 Freq: Status: Active Protocol: Document 11/12/18 10:30 BS (Rec: 11/12/18 11:47 BS [email or web address]) Physical Therapy Assessment Goals Two Impairment activity tolerance Short Term Goal (STG) Carlos will stand for 5 minutes without foot pain. MET STG Duration 5 weeks Nursing Home Goal (LTG) Carlos will hike for 5 miles with 2/10 foot pain or less. PARTIALLY MET. Continues to have 3/10 pain when walking on hard, flat surfaces. LTG Duration 10 weeks One Impairment ROM Short Term Goal (STG) Carlos will increase his straight leg raise to 60 degrees bilaterally. MET L SLR: 78 deg R SLR: 65 deg STG Duration 5 weeks Research Instructor Goal (LTG) Carlos will be independent with a stretching and strengthening HEP. MET LTG Duration 10 weeks Assessment Summary Assessment Pt feels confident with HEP for B LE stretching, balance, and ankle mobility. He has a couple more aquatic therapy sessions scheduled but feels confident in continuing land based HEP on his own. Physical Therapy Plan Frequency and Duration Frequency of Treatment 2x/Week Duration of Treatment 10 weeks Plan of Care Start Date 09/14/18 Plan of Care End Date 11/23/18 Therapeutic Interventions Therapeutic Interventions Aquatic Therapy Gait Training Joint Mobilizations Manual Therapy Neuromuscular Re-education Self-Care/Home Management Soft Tissue Mobilization Therapeutic Activities Therapeutic Exercises Modalities Cold Pack/Ice Massage Electric Stimulation Ultrasound Next Visit Focus/Plan Next Note Type Treatment Note Next Visit Plan Next session is aquatic, progress program and ensure independence with HEP.
--- NOTE | 2018-11-19 14:57 | PT.OTN ---
Current Diagnoses Disorder of muscle, unspecified (11/12/18) Plantar fascial fibromatosis (11/12/18) Pain in unspecified foot (11/12/18) Physical Therapy Treatment Note PT-OP-A Visit Information Start: 09/14/18 07:35 Freq: Status: Active Protocol: Document 11/19/18 11:00 LJ (Rec: 11/19/18 14:57 LJ [email or web address]) Out-Patient Physical Therapy Visit Information Visit Information Visit Type Aquatic Treatment Note Visit Start Time 11:00 Visit Stop Time 11:45 Total Visit Minutes 45 Visit Number 8 Number of FIRE EXTINGUISHER CHARGER Visits 1 PT-OP-B Current Condition Start: 09/14/18 07:35 Freq: Status: Active Protocol: Document 09/14/18 13:00 AMB (Rec: 09/14/18 13:13 AMB [id number]) Current Condition History of Current Condition Onset Date 4 years ago Current Complaints bilateral foot arch pain History of Current Condition Carlos states that his plantar fasciitis is better than it was 4 years ago when it started. He recently moved to [place] from [place] after retiring and has been swimming more which is helping . He saw the doctor because his previous orthotics were hurting more than helping. He notes that while his symptoms have improved, he continues to have pain with standing and walking. This limits the distance of hiking. He reports 0/10 pain in sitting, 1/10 pain in standing immediately upon standing, and after 2-3 miles of hiking, he wants to be done with hikng because of inner arch pain. His doctor told him that his overall tightness is affecting his feet, so he is looking for help with a lower extremity stretching program, and anything else that can help him increase his standing and hiking tolerance. Prior Treatments and Tests Prior PT helped, previous orthotics were hurting, so now using green super feet Treatment Goals Patient/Caregiver Goals Hike and stand without pain Prior Functional Status Baseline Function- ADL's Independent Baseline Function- Mobility Independent Current Functional Impairments (Reported) Functional Limitations- Mobility/Gait Pain with walking more than a couple miles. Personal Factors Other Personal Factors That May Effect hypertension, back pain, high Therapy/Recovery deductible PT-OP-C Subjective Start: 09/14/18 07:35 Freq: Status: Active Protocol: Document 11/19/18 11:00 LJ (Rec: 11/19/18 14:57 LJ [email or web address]) OP-PT Subjective Patient Comments Patient Comments Pt reports feeling less pain in his heel. Interested in getting a stretching routine for after his swimming exercise. PT-OP-D Balance Start: 09/14/18 07:35 Freq: Status: Active Protocol: Document 11/12/18 10:30 BS (Rec: 11/12/18 10:32 BS [id number]) Balance Tests Single Limb Standing Single Limb- Right 21 Single Limb- Left 18 Other Other Balance Tests Performed Pt initially unable to maintain single limb balance for less than 5 seconds at a time bilaterally. PT-OP-J Posture/Palpation/Skin Start: 09/14/18 07:35 Freq: Status: Active Protocol: Document 11/12/18 10:30 BS (Rec: 11/12/18 10:32 BS [id number]) Palpation Assessment Location One Palpation Details No heel pain or pain along medial arch or plantar fascia bilaterally. Some tenderness noted with palpation to L peroneals just above lateral malleolus. PT-OP-K Range of Motion Start: 09/14/18 07:35 Freq: Status: Active Protocol: Document 11/12/18 10:30 BS (Rec: 11/12/18 10:32 BS [id number]) Hip Goniometric Range of Motion Hip Measured in Degrees Right Passive Testing Position Supine Straight Leg Raise 78 Left Passive Testing Position Supine Straight Leg Raise 65 Ankle and Foot Goniometric Range of Motion Ankle and Foot Measured in Degrees Right Active Testing Position Sitting Dorsiflexion with Knee Flexed 16 Left Active Testing Position Sitting Dorsiflexion with Knee Flexed 15 PT-OP-L Special Tests Start: 09/14/18 07:35 Freq: Status: Active Protocol: Document 09/14/18 13:00 AMB (Rec: 09/14/18 14:58 AMB [email or web address]) Special Tests Other Special Tests Special Tests Windlass negative bilaterally in weightbearing. PT-OP-M Strength Start: 09/14/18 07:35 Freq: Status: Active Protocol: Document 11/12/18 10:30 BS (Rec: 11/12/18 11:50 BS [email or web address]) Ankle/Foot Strength Ankle and Foot Manual Muscle Testing Left Dorsiflexion (L4) 5 Normal Plantarflexion (S1) 5 Normal Inversion 5 Normal Eversion (S1) 5 Normal Right Dorsiflexion (L4) 5 Normal Plantarflexion (S1) 5 Normal Inversion 5 Normal Eversion (S1) 5 Normal PT-OP-Q Treatments Start: 09/14/18 07:35 Freq: Status: Active Protocol: Document 11/12/18 10:30 BS (Rec: 11/12/18 12:17 BS [email or web address]) Gym Equipment Shuttle Balance 1 Details Shuttle Balance: ant/post/ lateral Comments Red. Occasional UE support required for steadying. Lateral more challenging. WBOS and NBOS. Therapeutic Exercises Supine Exercises 3 Supine Exercise Name HS stretch Reps/Minutes x2 each leg Standing Exercises 3 Standing Exercise Name Standing adductor stretch at stairs Side bilateral Reps/Minutes 2x30 each 1 Standing Exercise Name Gastroc/Soleus stretch at stairs Side bilateral Reps/Minutes 2x30 each Comments knee straight and knee bent. VCs for correct form Neuro Re-Education Treatment Balance Activities 1 Details Single limb stance Surface Firm. Reps/Duration x3 to failure Comments SL balance improving, a few trials >15 seconds today. Self-Care/Home Management Treatment Education Other Education Verbally reviewed HEP, pt educated in proper footwear, OTC orthotics, and progression with HEP for B LE flexibility and balance. Assessed LE strength and ROM. PT-OP-S Aquatic Treatment Start: 10/29/18 16:51 Freq: Status: Active Protocol: Document 11/19/18 11:00 LJ (Rec: 11/19/18 14:57 LJ [email or web address]) Aquatics Treatment Pool Entry/Exit Pool Entry/Exit Method Stairs Assistance Independent Water Walking Toe Walk Water Level Chest Level Level of Assistance Independent Comments 30M Heel Walk Water Level Chest Level Level of Assistance Independent Comments 30M diagonal soldier march Water Level Chest Level Walking Equipment Resistance Fins Level of Assistance Verbal Cues walk with fins Water Level Chest Level Walking Equipment short fins forward, march, straight leg march Water Level Chest Level Level of Assistance Verbal Cues Lower Extremity Stretches standing on sm BB w/rolling Reps/Duration 2 min ITB stretcj w/lateral trunk flex-bilat Reps/Duration 4x contract relax LLE HS Reps/Duration 4x- 6 sec hold soleus-rocking foot s-t-s Reps/Duration 2x Comments at wall HS, ITB, hip add, quad Body Position Standing Water Level Chest Level Equipment Small Noodle Reps/Duration 4x Comments using stairs as resistance HC stretch Equipment Small Noodle Reps/Duration 2x Comments pool wall, noodle [place] Activities Other Activities run with fins Equipment flotation belt (XL), Duration 6 min PT-OP-T Assessment and Plan Start: 09/14/18 07:35 Freq: Status: Active Protocol: Document 11/19/18 11:00 FOREST (Rec: 11/19/18 14:57 LJ [email or web address]) Physical Therapy Assessment Goals Two Impairment activity tolerance Short Term Goal (STG) Carlos will stand for 5 minutes without foot pain. MET STG Duration 5 weeks Assisted Goal (LTG) Carlos will hike for 5 miles with 2/10 foot pain or less. PARTIALLY MET. Continues to have 3/10 pain when walking on hard, flat surfaces. LTG Duration 10 weeks One Impairment ROM Short Term Goal (STG) Carlos will increase his straight leg raise to 60 degrees bilaterally. MET L SLR: 78 deg R SLR: 65 deg STG Duration 5 weeks Assisted Goal (LTG) Carlos will be independent with a stretching and strengthening HEP. MET LTG Duration 10 weeks Assessment Summary Assessment Reviewed HEP stretching routine and gave pt handout for exercises. Feels he needs to review stretches one more time then will be able to perform them safely on his own . Physical Therapy Plan Frequency and Duration Frequency of Treatment 2x/Week Duration of Treatment 10 weeks Plan of Care Start Date 09/14/18 Plan of Care End Date 11/23/18 Therapeutic Interventions Therapeutic Interventions Aquatic Therapy Gait Training Joint Mobilizations Manual Therapy Neuromuscular Re-education Self-Care/Home Management Soft Tissue Mobilization Therapeutic Activities Therapeutic Exercises Modalities Cold Pack/Ice Massage Electric Stimulation Ultrasound Next Visit Focus/Plan Next Note Type Treatment Note Next Visit Plan Review HEP stretching program and DC.
--- NOTE | 2018-11-21 14:46 | PT.OTN ---
Current Diagnoses Disorder of muscle, unspecified (11/21/18) Plantar fascial fibromatosis (11/21/18) Pain in unspecified foot (11/21/18) Physical Therapy Treatment Note PT-OP-A Visit Information Start: 09/14/18 07:35 Freq: Status: Active Protocol: Document 11/21/18 14:35 LJ (Rec: 11/21/18 14:46 LJ [email or web address]) Out-Patient Physical Therapy Visit Information Visit Information Visit Type Aquatic Treatment Note Visit Start Time 10:15 Visit Stop Time 11:00 Total Visit Minutes 45 Visit Number 9 Number of SYSTEM DESIGNER Visits 2 PT-OP-B Current Condition Start: 09/14/18 07:35 Freq: Status: Active Protocol: Document 09/14/18 13:00 AMB (Rec: 09/14/18 13:13 AMB [id number]) Current Condition History of Current Condition Onset Date 4 years ago Current Complaints bilateral foot arch pain History of Current Condition Carlos states that his plantar fasciitis is better than it was 4 years ago when it started. He recently moved to [place] from [place] after retiring and has been swimming more which is helping . He saw the doctor because his previous orthotics were hurting more than helping. He notes that while his symptoms have improved, he continues to have pain with standing and walking. This limits the distance of hiking. He reports 0/10 pain in sitting, 1/10 pain in standing immediately upon standing, and after 2-3 miles of hiking, he wants to be done with hikng because of inner arch pain. His doctor told him that his overall tightness is affecting his feet, so he is looking for help with a lower extremity stretching program, and anything else that can help him increase his standing and hiking tolerance. Prior Treatments and Tests Prior PT helped, previous orthotics were hurting, so now using green super feet Treatment Goals Patient/Caregiver Goals Hike and stand without pain Prior Functional Status Baseline Function- ADL's Independent Baseline Function- Mobility Independent Current Functional Impairments (Reported) Functional Limitations- Mobility/Gait Pain with walking more than a couple miles. Personal Factors Other Personal Factors That May Effect hypertension, back pain, high Therapy/Recovery deductible PT-OP-C Subjective Start: 09/14/18 07:35 Freq: Status: Active Protocol: Document 11/21/18 14:35 FOREST (Rec: 11/21/18 14:46 LJ [email or web address]) OP-PT Subjective Patient Comments Patient Comments No new complaints or issues. Pt feels confident in his ability to continue exercise independently with HEP including a stretching program post swim workout. PT-OP-D Balance Start: 09/14/18 07:35 Freq: Status: Active Protocol: Document 11/12/18 10:30 BS (Rec: 11/12/18 10:32 BS [id number]) Balance Tests Single Limb Standing Single Limb- Right 21 Single Limb- Left 18 Other Other Balance Tests Performed Pt initially unable to maintain single limb balance for less than 5 seconds at a time bilaterally. PT-OP-J Posture/Palpation/Skin Start: 09/14/18 07:35 Freq: Status: Active Protocol: Document 11/12/18 10:30 BS (Rec: 11/12/18 10:32 BS [id number]) Palpation Assessment Location One Palpation Details No heel pain or pain along medial arch or plantar fascia bilaterally. Some tenderness noted with palpation to L peroneals just above lateral malleolus. PT-OP-K Range of Motion Start: 09/14/18 07:35 Freq: Status: Active Protocol: Document 11/12/18 10:30 BS (Rec: 11/12/18 10:32 BS [id number]) Hip Goniometric Range of Motion Hip Measured in Degrees Right Passive Testing Position Supine Straight Leg Raise 78 Left Passive Testing Position Supine Straight Leg Raise 65 Ankle and Foot Goniometric Range of Motion Ankle and Foot Measured in Degrees Right Active Testing Position Sitting Dorsiflexion with Knee Flexed 16 Left Active Testing Position Sitting Dorsiflexion with Knee Flexed 15 PT-OP-L Special Tests Start: 09/14/18 07:35 Freq: Status: Active Protocol: Document 09/14/18 13:00 AMB (Rec: 09/14/18 14:58 AMB [email or web address]) Special Tests Other Special Tests Special Tests Windlass negative bilaterally in weightbearing. PT-OP-M Strength Start: 09/14/18 07:35 Freq: Status: Active Protocol: Document 11/12/18 10:30 BS (Rec: 11/12/18 11:50 BS [email or web address]) Ankle/Foot Strength Ankle and Foot Manual Muscle Testing Left Dorsiflexion (L4) 5 Normal Plantarflexion (S1) 5 Normal Inversion 5 Normal Eversion (S1) 5 Normal Right Dorsiflexion (L4) 5 Normal Plantarflexion (S1) 5 Normal Inversion 5 Normal Eversion (S1) 5 Normal PT-OP-Q Treatments Start: 09/14/18 07:35 Freq: Status: Active Protocol: Document 11/12/18 10:30 BS (Rec: 11/12/18 12:17 BS [email or web address]) Gym Equipment Shuttle Balance 1 Details Shuttle Balance: ant/post/ lateral Comments Red. Occasional UE support required for steadying. Lateral more challenging. WBOS and NBOS. Therapeutic Exercises Supine Exercises 3 Supine Exercise Name HS stretch Reps/Minutes x2 each leg Standing Exercises 3 Standing Exercise Name Standing adductor stretch at stairs Side bilateral Reps/Minutes 2x30 each 1 Standing Exercise Name Gastroc/Soleus stretch at stairs Side bilateral Reps/Minutes 2x30 each Comments knee straight and knee bent. VCs for correct form Neuro Re-Education Treatment Balance Activities 1 Details Single limb stance Surface Firm. Reps/Duration x3 to failure Comments SL balance improving, a few trials >15 seconds today. Self-Care/Home Management Treatment Education Other Education Verbally reviewed HEP, pt educated in proper footwear, OTC orthotics, and progression with HEP for B LE flexibility and balance. Assessed LE strength and ROM. PT-OP-S Aquatic Treatment Start: 10/29/18 16:51 Freq: Status: Active Protocol: Document 11/21/18 14:35 LJ (Rec: 11/21/18 14:46 LJ [email or web address]) Aquatics Treatment Pool Entry/Exit Pool Entry/Exit Method Stairs Water Walking Toe Walk Level of Assistance Independent Comments 30M Heel Walk Water Level Chest Level Level of Assistance Independent Comments 30M diagonal soldier march Water Level Chest Level Walking Equipment Resistance Fins walk with fins Water Level Chest Level Walking Equipment short fins Comments marching with ext emphasis forward, march, straight leg march Water Level Chest Level Lower Extremity Exercises heel-toe raises bilat Reps/Duration 15 Lower Extremity Stretches spiderman Comments on wall with body swimging standing on sm BB w/rolling Reps/Duration 2 min ITB stretcj w/lateral trunk flex-bilat Reps/Duration 4x contract relax LLE HS Reps/Duration 4x- 6 sec hold pin and stretch-peroneals LLE Comments at wall soleus-rocking foot s-t-s Reps/Duration 2x Comments at wall HS, ITB, hip add, quad Body Position Standing Water Level Chest Level Equipment Small Noodle Reps/Duration 4x Comments using stairs as resistance HC stretch Equipment Small Noodle Reps/Duration 2x Comments pool wall, noodle [place] Activities Other Activities run with fins Equipment flotation belt (XL) Duration 5 min Aquatic Yoga Aquatic Yoga Downward Dog (Wall) Duration (Minutes) 2 Other freestyle Reps/Duration 50M Comments simulate exercise prior to stretching PT-OP-T Assessment and Plan Start: 09/14/18 07:35 Freq: Status: Active Protocol: Document 11/21/18 14:35 FOREST (Rec: 11/21/18 14:46 FOREST [email or web address]) Physical Therapy Assessment Goals Two Impairment activity tolerance Short Term Goal (STG) Carlos will stand for 5 minutes without foot pain. MET STG Duration 5 weeks Operations Liaison Goal (LTG) Carlos will hike for 5 miles with 2/10 foot pain or less. PARTIALLY MET. Continues to have 3/10 pain when walking on hard, flat surfaces. LTG Duration 10 weeks One Impairment ROM Short Term Goal (STG) Carlos will increase his straight leg raise to 60 degrees bilaterally. MET L SLR: 78 deg R SLR: 65 deg STG Duration 5 weeks Operations Liaison Goal (LTG) Carlos will be independent with a stretching and strengthening HEP. MET LTG Duration 10 weeks Assessment Summary Assessment Reviewed HEP stretching routine and gave pt handout for exercises. Pt demonstrated good recall and body positioning for safe stretching routine post independent swim workout. Physical Therapy Plan Frequency and Duration Frequency of Treatment 2x/Week Duration of Treatment 10 weeks Plan of Care Start Date 09/14/18 Plan of Care End Date 11/23/18 Therapeutic Interventions Therapeutic Interventions Aquatic Therapy Gait Training Joint Mobilizations Manual Therapy Neuromuscular Re-education Self-Care/Home Management Soft Tissue Mobilization Therapeutic Activities Therapeutic Exercises Modalities Cold Pack/Ice Massage Electric Stimulation Ultrasound Next Visit Focus/Plan Next Note Type Treatment Note Next Visit Plan Pt is now discharged with HEP emphasizing stretching of lower body post swim workout
--- NOTE | 2019-02-01 09:42 | PT.OPDS ---
Current Diagnoses Disorder of muscle, unspecified (11/21/18) Plantar fascial fibromatosis (11/21/18) Pain in unspecified foot (11/21/18) Provider Visit Care Team Role Provider Type Ryan Muniz MD Primary Care Provider Physician Specialty: Family Practice Address: [address] [place], [address] Email: [email or web address] Owen DPM Attending Provider Physician Specialty: Podiatry Address: [address] [place] [address], [id number] Email: [email or web address] Visit Number Visit Number 9 Discharge Summary PT-OP-B Current Condition Start: 09/14/18 07:35 Freq: Status: Active Protocol: Document 09/14/18 13:00 AMB (Rec: 09/14/18 13:13 AMB [id number]) Current Condition History of Current Condition Onset Date 4 years ago Current Complaints bilateral foot arch pain History of Current Condition Carlos states that his plantar fasciitis is better than it was 4 years ago when it started. He recently moved to [place] from [place] after retiring and has been swimming more which is helping . He saw the doctor because his previous orthotics were hurting more than helping. He notes that while his symptoms have improved, he continues to have pain with standing and walking. This limits the distance of hiking. He reports 0/10 pain in sitting, 1/10 pain in standing immediately upon standing, and after 2-3 miles of hiking, he wants to be done with hikng because of inner arch pain. His doctor told him that his overall tightness is affecting his feet, so he is looking for help with a lower extremity stretching program, and anything else that can help him increase his standing and hiking tolerance. Prior Treatments and Tests Prior PT helped, previous orthotics were hurting, so now using green super feet Treatment Goals Patient/Caregiver Goals Hike and stand without pain Prior Functional Status Baseline Function- ADL's Independent Baseline Function- Mobility Independent Current Functional Impairments (Reported) Functional Limitations- Mobility/Gait Pain with walking more than a couple miles. Personal Factors Other Personal Factors That May Effect hypertension, back pain, high Therapy/Recovery deductible PT-OP-C Subjective Start: 09/14/18 07:35 Freq: Status: Active Protocol: Document 11/21/18 14:35 LJ (Rec: 11/21/18 14:46 LJ [email or web address]) OP-PT Subjective Patient Comments Patient Comments No new complaints or issues. Pt feels confident in his ability to continue exercise independently with HEP including a stretching program post swim workout. PT-OP-D Balance Start: 09/14/18 07:35 Freq: Status: Active Protocol: Document 11/12/18 10:30 BS (Rec: 11/12/18 10:32 BS [id number]) Balance Tests Single Limb Standing Single Limb- Right 21 Single Limb- Left 18 Other Other Balance Tests Performed Pt initially unable to maintain single limb balance for less than 5 seconds at a time bilaterally. PT-OP-J Posture/Palpation/Skin Start: 09/14/18 07:35 Freq: Status: Active Protocol: Document 11/12/18 10:30 BS (Rec: 11/12/18 10:32 BS [id number]) Palpation Assessment Location One Palpation Details No heel pain or pain along medial arch or plantar fascia bilaterally. Some tenderness noted with palpation to L peroneals just above lateral malleolus. PT-OP-K Range of Motion Start: 09/14/18 07:35 Freq: Status: Active Protocol: Document 11/12/18 10:30 BS (Rec: 11/12/18 10:32 BS [id number]) Hip Goniometric Range of Motion Hip Right Passive Testing Position Supine Straight Leg Raise 78 Left Passive Testing Position Supine Straight Leg Raise 65 Ankle and Foot Goniometric Range of Motion Ankle and Foot Right Active Testing Position Sitting Dorsiflexion with Knee Flexed 16 Left Active Testing Position Sitting Dorsiflexion with Knee Flexed 15 PT-OP-L Special Tests Start: 09/14/18 07:35 Freq: Status: Active Protocol: Document 09/14/18 13:00 AMB (Rec: 09/14/18 14:58 AMB [email or web address]) Special Tests Other Special Tests Special Tests Windlass negative bilaterally in weightbearing. PT-OP-M Strength Start: 09/14/18 07:35 Freq: Status: Active Protocol: Document 11/12/18 10:30 BS (Rec: 11/12/18 11:50 BS [email or web address]) Ankle/Foot Strength Ankle and Foot Manual Muscle Testing Left Dorsiflexion (L4) 5 Normal Plantarflexion (S1) 5 Normal Inversion 5 Normal Eversion (S1) 5 Normal Right Dorsiflexion (L4) 5 Normal Plantarflexion (S1) 5 Normal Inversion 5 Normal Eversion (S1) 5 Normal PT-OP-T Assessment and Plan Start: 09/14/18 07:35 Freq: Status: Active Protocol: Document 02/01/19 09:41 AMB (Rec: 02/01/19 09:42 AMB [email or web address]) Physical Therapy Assessment Goals Two Impairment activity tolerance Short Term Goal (STG) Carlos will stand for 5 minutes without foot pain. MET STG Duration 5 weeks Life Skills Coach Goal (LTG) Carlos will hike for 5 miles with 2/10 foot pain or less. PARTIALLY MET. Continues to have 3/10 pain when walking on hard, flat surfaces. LTG Duration 10 weeks One Impairment ROM Short Term Goal (STG) Carlos will increase his straight leg raise to 60 degrees bilaterally. MET L SLR: 78 deg R SLR: 65 deg STG Duration 5 weeks Life Skills Coach Goal (LTG) Carlos will be independent with a stretching and strengthening HEP. MET LTG Duration 10 weeks Assessment Summary Assessment Pt was seen for 9 visits and met the majority of goals, he was discharged to a land and water based HEP. Physical Therapy Plan Discharge Physical Therapy Discharge Reasons Goals Met
== END 2019-02-01 13:43 | disposition home or self-care (01) ==
LOC: PHYS 10:15
PROVIDERS: PCP Family Medicine; Visit Provider Podiatrist
DX: M72.2 Plantar fascial fibromatosis (principal); M62.9 Disorder of muscle, unspecified; M79.673 Pain in unspecified foot
CPT/HCPCS: 97110; 97112; 97113; 97161; 97535

== ENCOUNTER → 2018-12-07 15:19 | Outpatient (CLI) | payer OTHER, SELFPAY ==
--- NOTE | 2018-12-07 | DI.RAD.S_ITS ---
PROCEDURE: XR CHEST 2V INDICATIONS: Dyspnea on exertion TECHNIQUE: 2 views of the chest were acquired. COMPARISON: [facility], CR, CHEST 2 VIEW, 02/21/2012, 17:01. [facility], CR, CHEST 2 VIEW, 07/09/2009, 11:26. FINDINGS: Surgical changes and devices: None. Lungs and pleura: Lungs are clear. No pleural effusions or pneumothorax. Mediastinum: Mediastinal contours are normal. Heart size is normal. Bones and chest wall: No suspicious bony abnormalities. Soft tissues appear unremarkable. IMPRESSION: Normal for age, source of current dyspnea on exertion symptoms is not seen. Dictated by: Ander Holland M.D. on 12/07/2018 at 16:01 Approved by: Ander Holland M.D. on 12/07/2018 at 16:02
== END ==
PROVIDERS: PCP Internal Medicine; Visit Provider Internal Medicine
DX: R06.09 Other forms of dyspnea (principal)
CPT/HCPCS: 71046

== ENCOUNTER → 2018-12-25 07:53 | Outpatient (CLI) | payer OTHER, SELFPAY ==
--- NOTE | 2018-12-25 | DI.ECHO.S_ITS ---
[facility]---------+ [facility] +---------+ : : [address] : : : [place], [place] : : : : [id number] : : : : Phone: [phone]+ Echocardiogram Report + + :Name: CAITLIN ESPINOZA Study Date: 12/25/2018 Height: 69 in : :[facility] Exam Location: IS Weight: 189 lb : : Gender: Male BSA: 2.0 m2 : :: 1955 Age: 63 yrs BP: 128/77 mmHg: :Reason For Study: DYSPNEA : : Performed By: Farhad Hamlin : :Referring: CAILIN MARTINEZ : + + Interpretation Summary 1) Normal left ventricular thickness, size, wall motion, and systolic function (EF 60-65%). 2) Normal right ventricular size and function. 3) There is mild mitral regurgitation. 4) Pulmonary artery pressures cannot be estimated because of the lack of a measurable TR jet velocity. 5) A small hepatic cyst measuring 1.2 cm x 1.4 cm is noted. 6) No prior Echo available for comparison. Procedure: A two-dimensional transthoracic echocardiogram with color flow and Doppler was performed. The study quality was technically adequate. There is no prior echocardiogram noted for this patient. The patient was in normal sinus rhythm during the exam. Left Ventricle: The left ventricle is normal in size. There is normal left ventricular wall thickness. The ejection fraction is estimated to be 60-65%. There are no focal wall motion abnormalities. Right Ventricle: The right ventricle is at the upper limits of normal in size. The right ventricular systolic function is normal. Atria: The left atrium is moderately dilated. Right atrial size is normal. The interatrial septum bows toward right atrium consistent with elevated left atrial pressure. The interatrial septum is intact with no evidence for an atrial septal defect. Mitral Valve: The mitral valve leaflets are slightly calcified. There is mild mitral regurgitation. Aortic Valve: The aortic valve is trileaflet. The aortic valve opens well. No aortic regurgitation is present. Tricuspid Valve: The tricuspid valve is normal in structure and function. No tricuspid regurgitation. Pulmonary artery pressures cannot be estimated because of the lack of a measurable TR jet velocity. Pulmonic Valve: The pulmonic valve is not well seen, but is grossly normal. There is trace pulmonic regurgitation. Great Vessels: The aortic root is normal size. The dimensions of the ascending aorta are normal. The pulmonary artery is normal size. The IVC is of normal diameter and collapses greater than 50% with a sniff. This suggests a low right atrial pressure of 3 mm Hg. Pericardium/ Pleura There is no pericardial effusion. There is no pleural effusion. A small hepatic cyst measuring 1.2 cm x 1.4 cm is noted. MMode/2D Measurements & Calculations LVIDd: 5.2 cm LVOT diam: 2.2 cm LVIDs: 2.8 cm Ao root diam: 3.4 cm FS: 45.0 % Aortic Jxn: 2.9 cm EPSS: 0.00 cm asc Aorta Diam: 3.4 cm IVSd: 0.83 cm Ao Arch Diam (Prox Trans): 2.6 cm LVPWd: 0.73 cm LV le. diameter/BSA (cm/m^2): 2.6 LV sys. diameter/BSA (cm/m^2): 1.4 LA dimension: 4.1 cm RA long axis: 5.2 cm LA A2 area: 24.6 cm2 RA area: 17.1 cm2 LA A4 area: 27.1 cm2 RA vol: 47.8 ml LA length (vol): 6.2 cm RA : 23.7 ml/m2 LA vol: 91.1 ml IVC diam: 1.6 cm LA vol index: 45.2 ml/m2 RVD1 (basal): 4.4 cm RVD2 (mid): 3.9 cm Doppler Measurements & Calculations Ao V2 max: 149.9 cm/sec LVOT Max Lyla: 119.6 cm/sec Ao V2 mean: 103.7 cm/sec LV V1 max P.7 mmHg Ao max P.0 mmHg LV V1 VTI: 30.3 cm Ao mean P.7 mmHg MIKAYLA(I,D): 3.6 cm2 Ao V2 VTI: 30.7 cm MIKAYLA(V,D): 2.9 cm2 sev ratio: 0.99 MIKAYLA indexed to BSA (cm^2/m^2): 1.8 MV E max lyla: 97.1 cm/sec PA V2 max: 89.9 cm/sec MV A max lyla: 76.9 cm/sec PA V2 mean: 71.5 cm/sec MV E/A: 1.3 PA mean P.1 mmHg Med Peak E' Lyla: 5.6 cm/sec PA pr(Accel): 19.1 mmHg E/E' med: 17.4 PA Accel Time: 0.13 sec Lat Peak E' Lyla: 7.2 cm/sec E/E' lat: 13.4 E/e' average: 15.4 MV dec time: 0.15 sec SV(LVOT): 111.4 ml Reading Physician:12:57 PM
== END ==
PROVIDERS: PCP Internal Medicine; Referring Provider Internal Medicine Cardiovascular Disease; Visit Provider Internal Medicine
DX: I34.0 Nonrheumatic mitral (valve) insufficiency (principal); R06.09 Other forms of dyspnea; K76.89 Other specified diseases of liver
CPT/HCPCS: 93306

== ENCOUNTER 2019-06-25 11:22 | Day surgery (SDC) | payer OTHER, SELFPAY ==
--- NOTE | 2019-06-25 | PATH_ITS ---
[facility] Accession Number: [id number] . 01 Material submitted: . eye - RIGHT EYE . 01 Diagnosis: Right Eye: Conjunctival mucosa with changes consistent with pterygium. Negative for dysplasia and malignancy. [facility] 06/26/2019 1705 Local . 01 Electronically signed: . Grace Reddy MD, Pathologist NPI- [id number] . 01 Gross description: . RIGHT EYE: Received in formalin is 1 fragment of cevallos soft tissue measuring 0.3 x 0.3 x 0.2 cm. Tissue is inked. Specimen is submitted in its entirety in 1 cassette. /[facility] [place] 06/25/2019 2125 Local . 01 Pathologist provided ICD-10: H11.051 . 01 CPT . 403053 Performed at: [address] [facility] [address], [place], [place] [id number] MD Agustín Torres MD Phone: [phone]
[2019-06-25 11:58] VITALS: BP 132/78; PULSE 66; RESP 16; TEMP 36.3; O2SAT 100; BMI 27.0
[2019-06-25] MEDS: LACTATED RINGERS 1,000 ML 42 ML IV (12:06)
--- NOTE | 2019-06-25 12:21 | PM.PREOP ---
Pre-operative Note Interval Note History & Physical reviewed/Exam performed by Physician: No Changes to H&P: No
--- NOTE | 2019-06-25 12:22 | P.OP_ITS ---
Operative Date/Time/Diagnoses Date of procedure: 06/25/19 Pre-op diagnosis: Pterygium right eye Post-op diagnosis: same Procedure & Clinicians Procedure: Pterygium surgery with auto graft Same procedure as scheduled: Yes Surgeon: Jean Marie Lozoya Click Yes if Unassisted: No Anesthesia Type: MAC +/- Operative Notes Procedure in detail: Tetracaince drops were placed in the right eye. The patient was prepped and draped in sterile manor. Wire lid speculum was used to open the lids. Betadine drops were placed on the eye. BSS drops were placed on the eye The pterygium was disected with wescot scissors and orutsararmiut blade. It was excised. It was sent to pathology. The cornea was polished with a jak. The are of the open conjuctiva was measured at 5X6mm and 1% lidocaine was injected under graft. The same size graft was excised and secured to the sclera with tissil glue. Tissil glue was used to close the site of the graft harvest. A bandage contact lens was placed on the eye. There was minimal bleeding. The patient left in excellent condition. Post-operative Condition: stable Disposition: same day surgery
[2019-06-25] MEDS: LIDOCAINE 1% 30 ML INJ (12:36)
[2019-06-25] MEDS: BALANCED SALT IRRIG SOLN NO.2 15 ML IRR (12:37)
[2019-06-25] MEDS: TETRACAINE 0.5% OPHTH DROPS 4 ML 2 DROPS EYE-OP (12:37)
[2019-06-25 13:05] VITALS: BP 145/79; PULSE 56; RESP 16; TEMP 36.4; O2SAT 96
== END 2019-06-25 13:15 | disposition home or self-care (01) ==
PROVIDERS: PCP Internal Medicine; Visit Provider Ophthalmology
PROC: (CPT 65420; principal; 2019-06-25 13:15)
DX: H11.051 Peripheral pterygium, progressive, right eye (principal); I10 Essential (primary) hypertension
CPT/HCPCS: 65426; J2250; J3010

== ENCOUNTER → 2019-07-24 10:49 | Outpatient (CLI) | payer OTHER, SELFPAY ==
[2019-07-24 11:37] LABS: Blood Urea Nitrogen 16 mg/dL (9-20); Calcium 9.5 mg/dL (8.4-10.2); Carbon Dioxide 28 mmol/L (22-32); Chloride 103 mmol/L (98-107); Estimated Glomerular Filt Rate > 60.0 mL/min (>60); Glucose 78 mg/dL (80-110); HEMOLYSIS < 15 (0-50); Potassium 4.6 mmol/L (3.4-5.1); Sodium 139 mmol/L (137-145)
== END ==
PROVIDERS: PCP Internal Medicine; Visit Provider Internal Medicine
DX: I25.10 Atherosclerotic heart disease of native coronary artery without angina pectoris (principal); I10 Essential (primary) hypertension
CPT/HCPCS: 36415; 80048

== ENCOUNTER → 2019-12-03 07:27 | Outpatient (CLI) | payer OTHER, SELFPAY ==
[2019-12-03 08:39] LABS: Add Manual Diff / Slide Review NO; Basophils Absolute Auto 100 /uL (0-100); Basophils Percent Auto 0.9 % (0-2); Eosinophils Absolute Auto 600 /uL (0-450); Eosinophils Percent Auto 6.2 % (2-4); Hematocrit 42.8 % (41-53); Hemoglobin 15.1 g/dL (13.5-17.5); Lymphocytes Absolute Auto 3100 /uL (1100-4500); Lymphocytes Percent Auto 34.9 % (25-40); Mean Corpuscular HGB Conc 35.4 % (30-36); Mean Corpuscular Hemoglobin 32.4 PG (26-34); Mean Corpuscular Volume 91.7 fL (80-100); Monocytes Absolute Auto 800 /uL (0-900); Monocytes Percent Auto 9.1 % (3-14); Neutrophils Absolute Auto 4400 /uL (1500-7000); Neutrophils Percent Auto 48.9 % (50-75); Platelet Count 179 X10^3/uL (150-400); Red Blood Cell Count 4.66 X10^6/uL (4.5-5.9); Red Cell Distribution Width 12.6 % (11.6-14.8)
[2019-12-03 08:53] LABS: Alanine Aminotransferase 23 IU/L (<50); Albumin 4.2 g/dL (3.5-5.0); Albumin Globulin Ratio 1.4 (1.0-2.8); Alkaline Phosphatase 40 U/L (38-126); Aspartate Aminotransferase 27 IU/L (17-59); BUN Creatinine Ratio 21.1 (6-22); Bilirubin Total 0.8 mg/dL (0.2-1.3); Blood Urea Nitrogen 19 mg/dL (9-20); Calcium 9.3 mg/dL (8.4-10.2); Carbon Dioxide 27 mmol/L (22-32); Chloride 106 mmol/L (98-107); Cholesterol 132 mg/dL (140-199); Estimated Glomerular Filt Rate > 60.0 mL/min (>60); Globulin 3.1 g/dL (1.7-4.1); Glucose 106 mg/dL (80-110); HDL Cholesterol 49 mg/dL (40-60); HEMOLYSIS < 15 (0-50); LDL Cholesterol Calculated 65 mg/dL (<100); Potassium 4.7 mmol/L (3.4-5.1); Sodium 140 mmol/L (137-145); Total Protein 7.3 g/dL (6.3-8.2); Triglycerides 90 mg/dL (35-150)
[2019-12-03 10:03] LABS: TSH w/ Reflex to FT4 2.74 uIU/mL (0.47-4.68)
[2019-12-03 13:01] LABS: Prostate Specific Antigen Scrn 1.25 ng/mL (0.1-4.0)
[2019-12-05 12:38] LABS: QuantiFERON Mitogen Value 9.06 IU/mL (.); QuantiFERON Nil Value 0.05 IU/mL (.); QuantiFERON TB Gold Plus Negative (Negative); QuantiFERON TB1 Ag Value 0.29 IU/mL (.); QuantiFERON TB2 Ag Value 0.25 IU/mL (.)
== END ==
PROVIDERS: PCP Internal Medicine; Referring Provider Dermatology; Visit Provider Dermatology
DX: Z12.5 Encounter for screening for malignant neoplasm of prostate (principal); L40.0 Psoriasis vulgaris; E78.2 Mixed hyperlipidemia; I10 Essential (primary) hypertension
CPT/HCPCS: 36415; 80053; 80061; 84443; 85025; 86480; G0103

== ENCOUNTER → 2020-07-31 10:32 | Outpatient (CLI) | payer MEDICARE, SELFPAY ==
[2020-07-31] MEDS: COVID-19 VACC #1, MRNA(MOD) 100 MCG/0.5 ML VIAL IM (10:35)
== END ==
PROVIDERS: PCP Internal Medicine; Visit Provider Internal Medicine
DX: Z23 Encounter for immunization (principal)
CPT/HCPCS: 0011A; 91301

== ENCOUNTER → 2020-08-28 10:32 | Outpatient (CLI) | payer MEDICARE, SELFPAY ==
[2020-08-28] MEDS: COVID-19 VACC #2, MRNA(MOD) 100 MCG/0.5 ML VIAL IM (10:36)
== END ==
PROVIDERS: PCP Internal Medicine; Visit Provider Internal Medicine
DX: Z23 Encounter for immunization (principal)
CPT/HCPCS: 0012A; 91301

== ENCOUNTER → 2020-12-23 07:22 | Outpatient (CLI) | payer OTHER, SELFPAY ==
[2020-12-23 08:31] LABS: Add Manual Diff / Slide Review NO; Basophils Absolute Auto 100 /uL (0-100); Basophils Percent Auto 1.2 % (0-2); Eosinophils Absolute Auto 400 /uL (0-450); Eosinophils Percent Auto 4.8 % (2-4); Hemoglobin 15.2 g/dL (13.5-17.5); Lymphocytes Absolute Auto 2500 /uL (1100-4500); Lymphocytes Percent Auto 30.9 % (25-40); Mean Corpuscular HGB Conc 34.4 % (30-36); Mean Corpuscular Hemoglobin 31.6 PG (26-34); Mean Corpuscular Volume 91.7 fL (80-100); Monocytes Absolute Auto 700 /uL (0-900); Monocytes Percent Auto 9.2 % (3-14); Neutrophils Absolute Auto 4400 /uL (1500-7000); Neutrophils Percent Auto 53.9 % (50-75); Platelet Count 168 X10^3/uL (150-400); Red Cell Distribution Width 12.7 % (11.6-14.8); White Blood Cell Count 8.2 X10^3/uL (4.5-11.0)
[2020-12-23 09:00] LABS: Alanine Aminotransferase 24 IU/L (<50); Albumin 4.1 g/dL (3.5-5.0); Albumin Globulin Ratio 1.3 (1.0-2.8); Alkaline Phosphatase 39 U/L (38-126); Aspartate Aminotransferase 28 IU/L (17-59); BUN Creatinine Ratio 20.8 (6-22); Bilirubin Total 0.9 mg/dL (0.2-1.3); Blood Urea Nitrogen 16 mg/dL (9-20); Calcium 9.2 mg/dL (8.4-10.2); Carbon Dioxide 27 mmol/L (22-32); Chloride 105 mmol/L (98-107); Cholesterol 127 mg/dL (140-199); Estimated Glomerular Filt Rate > 60.0 mL/min (>60); Globulin 3.1 g/dL (1.7-4.1); Glucose 106 mg/dL (80-110); HDL Cholesterol 57 mg/dL (40-60); HEMOLYSIS < 15 (0-50); LDL Cholesterol Calculated 57 mg/dL (<100); Potassium 4.6 mmol/L (3.4-5.1); Sodium 138 mmol/L (137-145); Total Protein 7.2 g/dL (6.3-8.2); Triglycerides 65 mg/dL (35-150)
[2020-12-23 09:23] LABS: Prostate Specific Antigen Scrn 1.74 ng/mL (0.1-4.0)
[2020-12-26 13:18] LABS: QuantiFERON Mitogen Value >10.00 IU/mL (.); QuantiFERON Nil Value 0.06 IU/mL (.); QuantiFERON TB Gold Plus Negative (Negative); QuantiFERON TB1 Ag Value 0.19 IU/mL (.); QuantiFERON TB2 Ag Value 0.19 IU/mL (.)
== END ==
PROVIDERS: PCP Internal Medicine; Referring Provider Dermatology; Visit Provider Dermatology
DX: L40.0 Psoriasis vulgaris (principal); I10 Essential (primary) hypertension; Z12.5 Encounter for screening for malignant neoplasm of prostate; E78.2 Mixed hyperlipidemia; N40.2 Nodular prostate without lower urinary tract symptoms
CPT/HCPCS: 36415; 80053; 80061; 85025; 86480; G0103

== ENCOUNTER 2021-07-11 14:58 | Emergency (ER) | payer OTHER, SELFPAY ==
[2021-07-11 15:04] VITALS: PULSE 55; RESP 20; TEMP 36.6; O2SAT 100
[2021-07-11 15:07] VITALS: BP 162/75
[2021-07-11 18:28] VITALS: BP 148/74; PULSE 50; RESP 16; O2SAT 100
--- NOTE | 2021-07-11 19:07 | ED.WOUNDLAC ---
HPI - Wound/Laceration General Chief Complaint: Wound/Laceration Stated Complaint: Cut left hand ring finger Time Seen by Provider: 07/11/21 19:07 Source: patient Mode of arrival: Ambulatory Limitations: no limitations History of Present Illness HPI narrative: This is a 65-year-old male who comes emergency department with a cut to the left ring finger. Patient states he was using a utility knife. He cut the distal end on the pad of his finger. He states is pretty well controlled with a Steri-Strips or butterfly suture. Patient is unsure if his tetanus is up-to-date. He denies any numbness or tingling. He denies any other injuries. He states he takes medication for hypertension and daily aspirin. He denies any other injuries. Patient tetanus UTD: No Related Data Home Medications Medication Instructions Recorded Confirmed secukinumab 150 mg/mL subcutaneous 300 mg SUBCUT Q4W 12/27/19 01/05/21 syringe (Cosentyx 300 mg/2 Syringes () aspirin 81 mg tablet,delayed 81 mg PO DAILY tab 02/07/20 01/05/21 release metronidazole 0.75 % topical gel 1 applic TOPICAL BID g 01/05/21 01/05/21 Previous Rx's Medication Instructions Recorded zolpidem 10 mg tablet 10 mg PO HSP PRN #30 tab 12/27/19 Massage Therapy #12 each 02/18/20 atorvastatin 10 mg tablet (Lipitor) 10 mg PO HS #90 tab 12/21/20 ezetimibe 10 mg tablet (Zetia) 10 mg PO Q DAY #90 tab 12/21/20 lisinopril 20 mg tablet 20 mg PO DAILY #90 tab 12/21/20 lisinopril 20 1 tab PO DAILY #90 tab 12/21/20 mg-hydrochlorothiazide 12.5 mg tablet Allergies Allergy/AdvReac Type Severity Reaction Status Date / Time Penicillins [PENICILLINS] Allergy Mild PT DOESN'T Verified 01/05/21 11:02 KNOW Review of Systems Review of Systems ROS Unobtainable: All systems reviewed & are unremarkable except as noted in HPI and below Patient History Medical History Chronic low back pain with sciatica (02/01/16) Coronary artery disease involving holy cross coronary artery of holy cross heart without angina pectoris (2011) Essential hypertension (05/16/16) Family history of malignant neoplasm of prostate (02/01/16) Foot pain (~2015) Mixed hyperlipidemia (05/16/16) Primary insomnia (02/01/16) Psoriasis (05/16/16) Psoriatic arthritis (05/24/16) Sleep apnea (~2015) Surgical History Anesthesia History of cholecystectomy (~1999) History of hernia repair (~2014) History of placement of stent in LAD coronary artery (~2011) History of pterygium excision (~2018) Family History Father Cancer Prostate neoplasm Mother No problems noted. Sister Stroke GERD (gastroesophageal reflux disease) Sister Overweight Social History household members: spouse Smoking Status: Former smoker Smoking Status: Former smoker Exam Narrative Exam Narrative: GENERAL: Alert and oriented x three, male in mild distress. HEENT: Head normocephalic, atraumatic, EOMI, pupils reactive, face symmetric, moist mucous membranes NECK: Supple, full range of motion CARDIOVASCULAR: Regular rate and rhythm without murmurs, rubs or gallops. RESPIRATORY: Breath sounds equal bilaterally, no wheezes rales or rhonchi. EXTREMITIES: Normal range of motion, no clubbing or edema. Neurovascularly intact. Patient has a 1.2 cm laceration over the pad and lateral side of the finger. It is deep but does not gape. Bleeding is controlled. No nail involvement. Patient has normal sensation. With no deformity or other injury appreciated. NEUROLOGICAL: Cranial nerves II through XII grossly intact. Moving all extremities SKIN: Warm, dry, no petechiae, no rashes or lesions. Initial Vital Signs Initial Vital Signs: Vital Signs Temperature 97.9 F 07/11/21 15:04 Pulse Rate 55 L 07/11/21 15:04 Respiratory Rate 20 07/11/21 15:04 Pulse Oximetry 100 07/11/21 15:04 Procedures Laceration Repair Laceration 1: Time of procedure: 19:20 Site: hand Side (If applicable): left Size (cm): 1.2 Description: linear Depth: simple, single layer Skin layer closed with: dermabond Course Orders Ordered: Discontinued Medications Diphtheria/Tetanus/Acell Pertussis (Tet,Diph,Pertuss(Acell),Vac/Pf 0.5 Ml Syringe) 0.5 ml IM .ONCE ONE Stop: 07/11/21 19:12 Last Admin: 07/11/21 19:27 Dose: 0.5 ml Documented by: MIGUEL A Vital Signs Vital signs: Vital Signs - 8 hr 07/11/21 15:04 07/11/21 15:07 07/11/21 18:28 Temperature 97.9 F Pulse Rate 55 L 50 L Respiratory Rate 20 16 Blood Pressure 162/75 H 148/74 H Pulse Oximetry 100 100 MDM - Wound/Laceration MDM Narrative Medical decision making narrative: This is a 65-year-old male with a small laceration to the distal end of the finger. Is not gapped but does bleed when irritated. The wound was irrigated. Appears patient would be well approximated with Dermabond and reinforced with Steri-Strips. Patient's tetanus appears to last be provided in 2010 according to his chart he does not recall a more recent date. Was updated here in the department. Discharge Plan Departure Patient Disposition: Home Clinical Impression: Finger laceration Instructions: DI for Laceration Repair-Skin Glue Activity Restrictions/Additional Instructions: Wound Care: Keep wound(s) clean and dry. Wash daily with soap and water only, and then pat dry. No soaks or long periods in water until the area is healed. You may trim Steri-Strips as they start to peel up. Do not use over the counter products (alcohol or peroxide)on the wounds unless instructed by a physician. If wound condition worsens (increased/expanding redness, developing fluid blisters, or worsening pain), either contact your doctor for an urgent re-assessment , or return to the Emergency Department. Return to the Emergency Department for any new or worsening symptoms. Return if fever greater than 100.4 Fahrenheit, increased swelling, increasing pain or worsening symptoms such as increased discharge or spreading redness. Prescriptions: No Action atorvastatin [Lipitor] 10 mg tablet 10 mg PO HS Qty: 90 2RF lisinopril-hydrochlorothiazide 20-12.5 mg tablet 1 tab PO DAILY Qty: 90 2RF lisinopril 20 mg tablet 20 mg PO DAILY Qty: 90 2RF ezetimibe [Zetia] 10 mg tablet 10 mg PO Q DAY Qty: 90 2RF aspirin 81 mg tablet,delayed release (DR/EC) 81 mg PO DAILY 0RF metronidazole 0.75 % gel 1 applic topical BID 0RF Cosentyx (2 Syringes) 150 mg/mL syringe 300 mg SUBCUT Q4W 0RF Rx Instructions: start 4 wks after last weekly dose;inject [id number] doses each in different thigh/upper arm/abdominal areas zolpidem 10 mg tablet 10 mg PO HSP PRN (Reason: insomnia) Qty: 30 3RF (DME) Massage Therapy Qty: 12 0RF Rx Instructions: Massage therapy up to once weekly Referrals: Carlos Reynolds MD [Primary Care Provider] -
[2021-07-11] MEDS: TET,DIPH,PERTUSS(ACELL),VAC/PF 0.5 ML SYRINGE IM (19:27)
== END 2021-07-11 19:37 | disposition home or self-care (01) ==
PROVIDERS: Emergency Provider Emergency Medicine; PCP Internal Medicine
DX: S61.215A Laceration without foreign body of left ring finger without damage to nail, initial encounter (principal); Z79.82 Long term (current) use of aspirin; Z87.891 Personal history of nicotine dependence; Z23 Encounter for immunization; W26.0XXA Contact with knife, initial encounter
CPT/HCPCS: 12001; 90471; 99282; 99283; 90715

== ENCOUNTER → 2021-10-06 08:22 | Outpatient (CLI) | payer OTHER, SELFPAY ==
[2021-10-06 09:49] LABS: Alanine Aminotransferase 21 IU/L (<50); Albumin 4.5 g/dL (3.5-5.0); Albumin Globulin Ratio 1.5 (1.0-2.8); Alkaline Phosphatase 39 U/L (38-126); Aspartate Aminotransferase 27 IU/L (17-59); BUN Creatinine Ratio 23.1 (6-22); Bilirubin Total 0.9 mg/dL (0.2-1.3); Blood Urea Nitrogen 21 mg/dL (9-20); Calcium 9.2 mg/dL (8.4-10.2); Carbon Dioxide 28 mmol/L (22-32); Chloride 104 mmol/L (98-107); Cholesterol 145 mg/dL (140-199); Estimated Glomerular Filt Rate > 60.0 mL/min (>60); Glucose 98 mg/dL (80-110); HDL Cholesterol 60 mg/dL (40-60); HEMOLYSIS < 15 (0-50); LDL Cholesterol Calculated 67 mg/dL (<100); Potassium 4.5 mmol/L (3.4-5.1); Sodium 139 mmol/L (137-145); Total Protein 7.5 g/dL (6.3-8.2); Triglycerides 91 mg/dL (35-150)
== END ==
PROVIDERS: PCP Internal Medicine; Referring Provider Internal Medicine; Visit Provider Internal Medicine
DX: I10 Essential (primary) hypertension (principal); E78.2 Mixed hyperlipidemia; I25.10 Atherosclerotic heart disease of native coronary artery without angina pectoris
CPT/HCPCS: 36415; 80053; 80061

== ENCOUNTER → 2022-04-14 13:12 | Outpatient (CLI) | payer OTHER, SELFPAY ==
[2022-04-14 15:24] LABS: Add Manual Diff / Slide Review NO; Basophils Absolute Auto 100 /uL (0-100); Basophils Percent Auto 0.9 % (0-2); Eosinophils Absolute Auto 300 /uL (0-450); Eosinophils Percent Auto 3.6 % (2-4); Hematocrit 43.9 % (41-53); Hemoglobin 15.2 g/dL (13.5-17.5); Lymphocytes Absolute Auto 2600 /uL (1100-4500); Lymphocytes Percent Auto 27.7 % (25-40); Mean Corpuscular HGB Conc 34.7 % (30-36); Mean Corpuscular Hemoglobin 31.5 PG (26-34); Monocytes Absolute Auto 700 /uL (0-900); Monocytes Percent Auto 7.3 % (3-14); Neutrophils Absolute Auto 5700 /uL (1500-7000); Neutrophils Percent Auto 60.5 % (50-75); Platelet Count 214 X10^3/uL (150-400); Red Blood Cell Count 4.83 X10^6/uL (4.5-5.9); Red Cell Distribution Width 13.2 % (11.6-14.8); White Blood Cell Count 9.4 X10^3/uL (4.5-11.0)
[2022-04-14 15:41] LABS: Alanine Aminotransferase 25 IU/L (<50); Albumin 4.4 g/dL (3.5-5.0); Albumin Globulin Ratio 1.3 (1.0-2.8); Alkaline Phosphatase 39 U/L (38-126); Aspartate Aminotransferase 31 IU/L (17-59); BUN Creatinine Ratio 21.3 (6-22); Bilirubin Total 0.9 mg/dL (0.2-1.3); Blood Urea Nitrogen 20 mg/dL (9-20); Calcium 9.1 mg/dL (8.4-10.2); Carbon Dioxide 27 mmol/L (22-32); Chloride 102 mmol/L (98-107); Estimated Glomerular Filt Rate > 60 mL/min (>60); Globulin 3.4 g/dL (1.7-4.1); Glucose 93 mg/dL (80-110); HEMOLYSIS < 15 (0-50); Potassium 3.8 mmol/L (3.4-5.1); Sodium 140 mmol/L (137-145); Total Protein 7.8 g/dL (6.3-8.2)
[2022-04-18 10:35] LABS: QuantiFERON Mitogen Value >10.00 IU/mL (.); QuantiFERON Nil Value 0.03 IU/mL (.); QuantiFERON TB Gold Plus Negative (Negative); QuantiFERON TB1 Ag Value 0.18 IU/mL (.); QuantiFERON TB2 Ag Value 0.08 IU/mL (.)
== END ==
PROVIDERS: PCP Internal Medicine; Referring Provider Dermatology; Visit Provider Dermatology
DX: L40.0 Psoriasis vulgaris (principal); B35.3 Tinea pedis; L82.1 Other seborrheic keratosis
CPT/HCPCS: 36415; 80053; 85025; 86480

== ENCOUNTER → 2022-08-01 09:29 | Outpatient (CLI) | payer OTHER, SELFPAY ==
[2022-08-01 10:56] LABS: COVID19 -Nasal RAPID Negative (Negative)
== END ==
PROVIDERS: Family Provider Internal Medicine; PCP Internal Medicine; Visit Provider Surgery
DX: Z20.822 Contact with and (suspected) exposure to COVID-19 (principal); Z01.812 Encounter for preprocedural laboratory examination
CPT/HCPCS: 87635; C9803

== ENCOUNTER 2022-08-02 07:07 | Day surgery (SDC) | payer OTHER, SELFPAY ==
[2022-08-02 07:30] VITALS: BP 138/83; PULSE 70; RESP 14; TEMP 36.2; O2SAT 97; BMI 27.0
[2022-08-02] MEDS: LACTATED RINGERS 1,000 ML 42 ML IV (07:38)
--- NOTE | 2022-08-02 08:12 | PM.HP.1 ---
History of Present Illness History of Present Illness Date Patient Seen: 08/02/22 Time Patient Seen: 08:12 Chief complaint: SDC Narrative: The patient presents for colorectal screening. He is a personal history of colonic polyps. Last colonoscopy 5 years ago normal. No personal or family history of colon cancer. Since returning from [place] this past year he is had bouts of intermittent right lower quadrant pain and cramping. No blood per rectum no unintentional weight loss. Patient History Medical History Chronic low back pain with sciatica (02/01/16) Coronary artery disease involving [place] coronary artery of [place] heart without angina pectoris (2011) Essential hypertension (05/16/16) Family history of malignant neoplasm of prostate (02/01/16) Foot pain (~2015) Mixed hyperlipidemia (05/16/16) Primary insomnia (02/01/16) Psoriasis (05/16/16) Psoriatic arthritis (05/24/16) Sleep apnea (~2015) Surgical History Anesthesia History of cholecystectomy (~1999) History of hernia repair (~2014) History of placement of stent in LAD coronary artery (~2011) History of pterygium excision (~2018) Family & Social History Family History Father Cancer Prostate neoplasm Mother No problems noted. Sister Stroke GERD (gastroesophageal reflux disease) Sister Overweight Social History: household members spouse Tobacco & Substance use: Smoking Status Former smoker alcohol intake current alcohol intake frequency 0-2 drinks per day Substance Use Type does not use Meds Home Medications and Allergies Home Medications Medication Instructions Recorded Confirmed Type secukinumab 150 mg/mL subcutaneous 300 mg SUBCUT Q4W 12/27/19 08/02/22 History syringe (Cosentyx 300 mg/2 Syringes () zolpidem 10 mg tablet 10 mg PO HSP PRN insomnia #30 tabs 12/27/19 08/02/22 Rx aspirin 81 mg tablet,delayed 81 mg PO DAILY 02/07/20 08/02/22 History release atorvastatin 10 mg tablet (Lipitor) 10 mg PO HS #90 tabs 12/14/21 08/02/22 Rx ezetimibe 10 mg tablet (Zetia) 10 mg PO Q DAY #90 tabs 12/14/21 08/02/22 Rx lisinopril 20 mg tablet 20 mg PO DAILY #90 tabs 12/14/21 08/02/22 Rx lisinopril 20 1 tab PO DAILY #90 tabs 12/14/21 08/02/22 Rx mg-hydrochlorothiazide 12.5 mg tablet Allergies Allergy/AdvReac Type Severity Reaction Status Date / Time Penicillins [PENICILLINS] Allergy Mild PT DOESN'T Verified 08/02/22 07:27 KNOW Exam Narrative Exam Narrative: General adult man alert oriented no acute distress Assessment & Plan Assessment & Plan narrative: The patient requires colorectal screening and colonoscopy is recommended. Technical details were discussed. Risks, benefits, alternatives explained. Risks including but not limited to myocardial infarction, aspiration, bleeding, pain, missed lesion, incomplete examination, need for further radiographic studies, colonic perforation, and need for major abdominal surgery were discussed. All questions were answered to their satisfaction, and they are in agreement with this plan. Time Spent With Patient Critical Care time: I spent a total of [] minutes of critical care time on this patient's care today; this time is exclusive of procedural time.
--- NOTE | 2022-08-02 08:13 | PM.OP.COLON ---
Operative Date/Time/Diagnoses Date of procedure: 08/02/22 Time of procedure: 08:13 Pre-op diagnosis: Colorectal screening Post-op diagnosis: same Procedure & Clinicians Study performed: Colonoscopy Same procedure as scheduled: Yes Indications: Colorectal screening Surgeon: Sandoval Resendiz Procedure Notes Procedure in detail: The history and physical was performed/updated and the patient is ASA class is 2. The procedure was discussed in detail with the patient. Potential risks complications including infection, bleeding, missed diagnosis, perforation, need for surgery, and were explained. Their questions were answered and informed consent was obtained. Patient was brought to the procedure room and placed standard monitoring equipment. The patient's vital signs were monitored continuously throughout the entire procedure. Prior to starting time-out was performed. The patient was placed in the left lateral recumbent position. Procedural sedation was administered by anesthesia. Examination began with a thorough inspection of the perianal area there was no evidence of fissures, fistulae, external hemorrhoids or cutaneous malignancy. The colonoscopy scope was then placed into the anal canal and was advanced to the cecum, which was identified by the ileocecal valve, the appendiceal orifice and the confluence of the taenia. The scope was then slowly withdrawn examining colon thoroughly in all directions, irrigating it of any residual stool. FINDINGS 1. No masses polyps or inflammation 2. Sigmoid mild diverticulosis 3. Internal hemorrhoids The patient tolerated the procedure well. They will be discharged once criteria are met. The prep was of good/excellent quality. The withdrawl time was 7 minutes. Specimen(s): none sent Complications: none Impression: Normal colonoscopy Post-procedure Recommendations: Colonoscopy in 10 years and High fiber diet Disposition: same day surgery
[2022-08-02 08:42] VITALS: BP 143/79; PULSE 61; RESP 14; TEMP 36.3; O2SAT 99
[2022-08-02 08:47] VITALS: BP 156/90; PULSE 65; RESP 14; TEMP 36.4; O2SAT 98
[2022-08-02 08:52] VITALS: BP 149/82; PULSE 59; RESP 16; TEMP 36.6; O2SAT 97
[2022-08-02 08:58] VITALS: BP 158/81; PULSE 54; RESP 16; TEMP 36.6; O2SAT 97
== END 2022-08-02 09:06 | disposition home or self-care (01) ==
PROVIDERS: Family Provider Internal Medicine; PCP Internal Medicine; Referring Provider Surgery; Visit Provider Surgery
PROC: 0DJD8ZZ Inspection of Lower Intestinal Tract, Via Natural or Artificial Opening Endoscopic (ICD-10-PCS; CPT 45378; principal; 2022-08-02 08:15)
DX: Z12.11 Encounter for screening for malignant neoplasm of colon (principal); K57.30 Diverticulosis of large intestine without perforation or abscess without bleeding; K64.8 Other hemorrhoids
CPT/HCPCS: 45378; J2704

== ENCOUNTER 2022-08-05 15:15 | Outpatient (RCR) | payer OTHER, SELFPAY ==
--- NOTE | 2022-06-23 16:37 | PT.OIE ---
Current Diagnoses Pain in right shoulder (06/23/22) Plantar fascial fibromatosis (06/23/22) Other injury of muscle(s) and tendon(s) of the rotator cuff of right shoulder, subsequent encounter (06/23/22) Past Medical History (Last Reviewed 07/11/21 @ 19:19 by Candace Ruiz DO) Chronic low back pain with sciatica (02/01/16) Coronary artery disease involving [place] coronary artery of [place] heart without angina pectoris (2011) Essential hypertension (05/16/16) Family history of malignant neoplasm of prostate (02/01/16) Foot pain (~2015) Mixed hyperlipidemia (05/16/16) Primary insomnia (02/01/16) Psoriasis (05/16/16) Psoriatic arthritis (05/24/16) Sleep apnea (~2015) Past Surgical History (Last Reviewed 07/11/21 @ 19:19 by Candace Ruiz DO) Anesthesia History of cholecystectomy (~1999) History of hernia repair (~2014) History of placement of stent in LAD coronary artery (~2011) History of pterygium excision (~2018) Visit Care Team Role Provider Type Carlos Reynolds MD Attending Provider Physician Family Provider Primary Care Provider Referring Provider Specialty: Internal Medicine Address: [address] [place] [address], [address], [facility] Email: [email or web address] Physical Therapy Initial Evaluation PT-OP-A Visit Information Start: 06/23/22 16:01 Freq: Status: Active Protocol: Document 06/23/22 10:30 DCW (Rec: 06/23/22 16:13 DCW [id number]) Out-Patient Physical Therapy Visit Information Visit Information Visit Type Initial Evaluation Visit Start Time 10:30 Visit Stop Time 11:15 Total Visit Minutes 45 Visit Number 1 Number of PRODUCTION SUPERVISOR Visits 0 Evaluation Information Evaluation Date 06/23/22 PT-OP-B Current Condition Start: 06/23/22 16:01 Freq: Status: Active Protocol: Document 06/23/22 10:30 DCW (Rec: 06/23/22 16:13 DCW [id number]) Current Condition History of Current Condition Onset Date Four month history Current Complaints Right shoulder stiffness and pain following fall, L plantar fasciitis History of Current Condition Pt is a 66 year old male presenting with a four month history of right shoulder pain . Pt reports he was out hiking , started to slide down a slope, and tried to grab onto something to stop the fall, resulting in a FOOSH and an additional twisting injury of his right arm. Pt notes it had been very painful and limited most activity, but has improved quite a bit over the last four months since injury. Has returned to swimming, which is his main form of exercise, although there is still some associated discomfort in his shoulder. Additionally has some pain with trying to sleep on his right side, as well as doffing his jacket. Pt also notes a long-standing history of left plantar fasciitis, which he has undergone PT for in the past, which was largely beneficial, however he has continued to have difficulty with it over the past few years, noting he feels it causes his gait pattern to change, resulting in hip and knee pain as well. Treatment Goals Patient/Caregiver Goals Swim without increased shoulder pain, return to hiking four miles without increased foot pain. PT-OP-C Subjective Start: 06/23/22 16:01 Freq: Status: Active Protocol: Document 06/23/22 10:30 DCW (Rec: 06/23/22 16:13 DCW [id number]) OP-PT Subjective Patient Comments Patient Comments There's still some discomfort , but it's not terrible. It used to be pretty terrible. Patient Reported Progress Improving Patient Questionnaires Quick Dash- Upper Extremity Quick Dash UE Score 13.64% Quick Dash UE Impairment 1 to 19% Impaired (Score 1-19) PT-OP-E Functional Tests Start: 06/23/22 16:01 Freq: Status: Active Protocol: Document 06/23/22 10:30 DCW (Rec: 06/23/22 16:20 DCW [id number]) Functional Tests Apley's Scratch Test Action 1- Left Posterior opposite shoulder Action 1- Right Posterior opposite shoulder Action 2- Left T3 Action 2- Right T3 Action 3- Left T6 Action 3- Right T11 PT-OP-F Manual Assessment Start: 06/23/22 16:01 Freq: Status: Active Protocol: Document 06/23/22 10:30 DCW (Rec: 06/23/22 16:20 DCW [id number]) Manual Assessments Soft Tissue Assessment Soft Tissue Mobility Assessment Tenderness to palpation 3/4: wincing and withdraw along right biceps LH tendon and pec Tenderness to palpation 2/4: pain with wincing along right infraspinatus and subscapularis PT-OP-K Range of Motion Start: 06/23/22 16:01 Freq: Status: Active Protocol: Document 06/23/22 10:30 DCW (Rec: 06/23/22 16:20 DCW [id number]) Shoulder Goniometric Range of Motion Shoulder Right Active Testing Position Sitting Flexion 170 Abduction 155 External Rotation at 0 degrees Abduction 55 Internal Rotation Behind Back (text) T11 Left Active Flexion 170 Abduction 155 External Rotation at 0 degrees Abduction 55 Internal Rotation Behind Back (text) T6 PT-OP-L Special Tests Start: 06/23/22 16:01 Freq: Status: Active Protocol: Document 06/23/22 10:30 DCW (Rec: 06/23/22 16:20 DCW [id number]) Special Tests Shoulder Special Tests Speed's Biceps Test Results Positive R Passive ER Rotator Cuff Test Results Positive R Painful Arc Test Results Positive R Lift-Off Rotator Cuff Test Results Negative Melendez Eric Impingement Test Results Negative Grind Labrum Test Results Positive R Empty Can Test Results Negative Drop Arm Rotator Cuff Test Results Negative Clunk Test Test Results Positive R Belly Press Test Results Negative Apprehension Test Test Results Positive R PT-OP-M Strength Start: 06/23/22 16:01 Freq: Status: Active Protocol: Document 06/23/22 10:30 DCW (Rec: 06/23/22 16:20 DCW [id number]) Shoulder Strength Shoulder Manual Muscle Testing Right Flexion 4 Good Abduction (C5) 4 Good External Rotation 4 Good Internal Rotation 4 Good Comments Pain with resisted abduction Left Flexion 4+ Good+ Abduction (C5) 4+ Good+ External Rotation 4+ Good+ Internal Rotation 4+ Good+ PT-OP-Q Treatments Start: 06/23/22 16:01 Freq: Status: Active Protocol: Document 06/23/22 10:30 DCW (Rec: 06/23/22 16:13 DCW [id number]) Therapeutic Exercises Standing Exercises IR/ER Standing Exercise Name ER/IR Side right Resistance Lv 3 Rows Standing Exercise Name Rows Side bilateral Resistance Lv 3 Extension Standing Exercise Name Shoulder Extension Side bilateral Resistance Lv 3 PT-OP-T Assessment and Plan Start: 06/23/22 16:01 Freq: Status: Active Protocol: Document 06/23/22 10:30 DCW (Rec: 06/23/22 16:37 DCW [id number]) Physical Therapy Assessment Rehab Potential Rehabilitation Potential Good Evaluation Complexity Number of Personal Factors/Comorbidities 1-2 Number of Body Systems Impaired 3 Clinical Presentation at Evaluation Stable Impairments Impairments Activity Tolerance,Functional Activities,Functional Mobility ,Gait,Pain,ROM,Soft Tissue Mobility,Strength Goals Three Impairment Left foot pain prevents pt from hiking [facility] Goal (LTG) Pt to return to usual activity of four mile hikes without left foot pain LTG Duration 08/24/22 Two Impairment Pt unable to fully participate in swimming due to shoulder pain [facility] Goal (LTG) Pt to return to swimming five days/week at his pre-injury intensity without increased pain LTG Duration 08/24/22 One Impairment Pt does not have an appropriate home exercise program Short Term Goal (STG) Pt to be independent and compliant with an appropriate HEP STG Duration 07/24/22 Assessment Summary Assessment Pt presents with signs and symptoms consistent with right r/c sprain following a FOOSH/ twisting injury four months ago. Testing suggests possibility of subscapularis involvement, although ROM largely WNL and pain response fairly mild, injury unlikely to be a more severe tear, more likely a sprain or mild tear. Additionally, with positive apprehension and grind tests, as well as significant pain at biceps LH attachment, may also be a possibility of potential labral involvement. Pt should benefit from skilled therapy focusing on decreasing tone, improving strength and ROM, as well as additional focus on pt's ongoing plantar fasciitis, although full assessment of his left foot complaints was unable to be performed today due to time constraints. Pt may benefit from further advance imaging of his shoulder in the future if he does not improve as expected. Physical Therapy Plan Frequency and Duration Frequency of Treatment 2x/Week Plan of Care Start Date 06/23/22 Plan of Care End Date 08/24/22 Therapeutic Interventions Therapeutic Interventions Home Exercise Program,Joint Mobilizations,Manual Therapy, Neuromuscular Re-education, Patient/Caregiver Education, Self-Care/Home Management,Soft Tissue Mobilization, Therapeutic Activities, Therapeutic Exercises Modalities Cold Pack/Ice Massage,Electric Stimulation,Hot Packs, Ultrasound Next Visit Focus/Plan Next Note Type Treatment Note Next Visit Plan ROM, shoulder strengthening, STM
--- NOTE | 2022-06-23 16:39 | PT.OPPOC ---
Physical, Occupational & Speech Therapy At [facility] Current Diagnoses Pain in right shoulder (06/23/22) Plantar fascial fibromatosis (06/23/22) Other injury of muscle(s) and tendon(s) of the rotator cuff of right shoulder, subsequent encounter (06/23/22) Visit Care Team Role Provider Type Carlos Reynolds MD Attending Provider Physician Family Provider Primary Care Provider Referring Provider Specialty: Internal Medicine Address: [address] [place] [address], [address], [facility] Email: [email or web address] Plan Of Care PT-OP-T Assessment and Plan Start: 06/23/22 16:01 Freq: Status: Active Protocol: Document 06/23/22 10:30 DCW (Rec: 06/23/22 16:37 DCW [id number]) Physical Therapy Assessment Rehab Potential Rehabilitation Potential Good Evaluation Complexity Number of Personal Factors/Comorbidities 1-2 Number of Body Systems Impaired 3 Clinical Presentation at Evaluation Stable Impairments Impairments Activity Tolerance,Functional Activities,Functional Mobility ,Gait,Pain,ROM,Soft Tissue Mobility,Strength Goals Three Impairment Left foot pain prevents pt from hiking Jail Goal (LTG) Pt to return to usual activity of four mile hikes without left foot pain LTG Duration 08/24/22 Two Impairment Pt unable to fully participate in swimming due to shoulder pain Ice 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 Testing suggests possibility of subscapularis involvement, although ROM largely WNL and pain response fairly mild, injury unlikely to be a more severe tear, more likely a sprain or mild tear. Additionally, with positive apprehension and grind tests, as well as significant pain at biceps LH attachment, may also be a possibility of potential labral involvement. Pt should benefit from skilled therapy focusing on decreasing tone, improving strength and ROM, as well as additional focus on pt's ongoing plantar fasciitis, although full assessment of his left foot complaints was unable to be performed today due to time constraints. Pt may benefit from further advance imaging of his shoulder in the future if he does not improve as expected. Physical Therapy Plan Frequency and Duration Frequency of Treatment 2x/Week Plan of Care Start Date 06/23/22 Plan of Care End Date 08/24/22 Therapeutic Interventions Therapeutic Interventions Home Exercise Program,Joint Mobilizations,Manual Therapy, Neuromuscular Re-education, Patient/Caregiver Education, Self-Care/Home Management,Soft Tissue Mobilization, Therapeutic Activities, Therapeutic Exercises Modalities Cold Pack/Ice Massage,Electric Stimulation,Hot Packs, Ultrasound Next Visit Focus/Plan Next Note Type Treatment Note Next Visit Plan ROM, shoulder strengthening, STM Plan of Care Dates Plan of Care Start Date 06/23/22 Plan of Care End Date 08/24/22 Electronically Signed by: Joni Jules, PT 06/23/22 3105 If you are in agreement with this Plan of Care, please return a signed and dated copy. I have reviewed this Plan of Care and certify that the skilled therapy services above are required to meet the patient?s needs. Physician Signature Date Printed Name and Credentials Clinical Instructor Signature Printed Name and Credentials
--- NOTE | 2022-06-28 12:47 | PT.OTN ---
Current Diagnoses Pain in right shoulder (06/28/22) Plantar fascial fibromatosis (06/28/22) Other injury of muscle(s) and tendon(s) of the rotator cuff of right shoulder, subsequent encounter (06/28/22) Physical Therapy Treatment Note PT-OP-A Visit Information Start: 06/23/22 16:01 Freq: Status: Active Protocol: Document 06/28/22 10:08 NBM (Rec: 06/28/22 12:45 NBM [id number]) Out-Patient Physical Therapy Visit Information Visit Information Visit Type Treatment Note Visit Start Time 10:30 Visit Stop Time 11:15 Total Visit Minutes 45 Visit Number 2 Number of FRUIT INSPECTOR Visits 1 PT-OP-B Current Condition Start: 06/23/22 16:01 Freq: Status: Active Protocol: Document 06/23/22 10:30 DCW (Rec: 06/23/22 16:13 DCW [id number]) Current Condition History of Current Condition Onset Date Four month history Current Complaints Right shoulder stiffness and pain following fall, L plantar fasciitis History of Current Condition Pt is a 66 year old male presenting with a four month history of right shoulder pain . Pt reports he was out hiking , started to slide down a slope, and tried to grab onto something to stop the fall, resulting in a FOOSH and an additional twisting injury of his right arm. Pt notes it had been very painful and limited most activity, but has improved quite a bit over the last four months since injury. Has returned to swimming, which is his main form of exercise, although there is still some associated discomfort in his shoulder. Additionally has some pain with trying to sleep on his right side, as well as doffing his jacket. Pt also notes a long-standing history of left plantar fasciitis, which he has undergone PT for in the past, which was largely beneficial, however he has continued to have difficulty with it over the past few years, noting he feels it causes his gait pattern to change, resulting in hip and knee pain as well. Treatment Goals Patient/Caregiver Goals Swim without increased shoulder pain, return to hiking four miles without increased foot pain. PT-OP-C Subjective Start: 06/23/22 16:01 Freq: Status: Active Protocol: Document 06/28/22 10:08 NBM (Rec: 06/28/22 12:45 NBM [id number]) OP-PT Subjective Patient Comments Patient Comments Pt reports he has been doing his marisol ex's but not sure if he's doing them right, and his band broke. He most notices R marisol pain reaching behind his back into pocket or to put coat on; marisol aches when he awakes but that's an improvement because it used to wake him up at night. The pain tends to be either along his bicep or the front of his shoulder. He does not use ice regularly. His L plantar fasciitis seems most painful after walking or hiking. He has tried various inserts including custom but finds Keens work best as is. He's tried sleeping w/ his feet propped but then can't sleep well. Pt also states he has some pinched discs. PT-OP-E Functional Tests Start: 06/23/22 16:01 Freq: Status: Active Protocol: Document 06/23/22 10:30 DCW (Rec: 06/23/22 16:20 DCW [id number]) Functional Tests Apley's Scratch Test Action 1- Left Posterior opposite shoulder Action 1- Right Posterior opposite shoulder Action 2- Left T3 Action 2- Right T3 Action 3- Left T6 Action 3- Right T11 PT-OP-F Manual Assessment Start: 06/23/22 16:01 Freq: Status: Active Protocol: Document 06/23/22 10:30 DCW (Rec: 06/23/22 16:20 DCW [id number]) Manual Assessments Soft Tissue Assessment Soft Tissue Mobility Assessment Tenderness to palpation 3/4: wincing and withdraw along right biceps LH tendon and pec Tenderness to palpation 2/4: pain with wincing along right infraspinatus and subscapularis PT-OP-K Range of Motion Start: 06/23/22 16:01 Freq: Status: Active Protocol: Document 06/23/22 10:30 DCW (Rec: 06/23/22 16:20 DCW [id number]) Shoulder Goniometric Range of Motion Shoulder Right Active Testing Position Sitting Flexion 170 Abduction 155 External Rotation at 0 degrees Abduction 55 Internal Rotation Behind Back (text) T11 Left Active Flexion 170 Abduction 155 External Rotation at 0 degrees Abduction 55 Internal Rotation Behind Back (text) T6 PT-OP-L Special Tests Start: 06/23/22 16:01 Freq: Status: Active Protocol: Document 06/23/22 10:30 DCW (Rec: 06/23/22 16:20 DCW [id number]) Special Tests Shoulder Special Tests Speed's Biceps Test Results Positive R Passive ER Rotator Cuff Test Results Positive R Painful Arc Test Results Positive R Lift-Off Rotator Cuff Test Results Negative Melendez Eric Impingement Test Results Negative Grind Labrum Test Results Positive R Empty Can Test Results Negative Drop Arm Rotator Cuff Test Results Negative Clunk Test Test Results Positive R Belly Press Test Results Negative Apprehension Test Test Results Positive R PT-OP-M Strength Start: 06/23/22 16:01 Freq: Status: Active Protocol: Document 06/23/22 10:30 DCW (Rec: 06/23/22 16:20 DCW [id number]) Shoulder Strength Shoulder Manual Muscle Testing Right Flexion 4 Good Abduction (C5) 4 Good External Rotation 4 Good Internal Rotation 4 Good Comments Pain with resisted abduction Left Flexion 4+ Good+ Abduction (C5) 4+ Good+ External Rotation 4+ Good+ Internal Rotation 4+ Good+ PT-OP-Q Treatments Start: 06/23/22 16:01 Freq: Status: Active Protocol: Document 06/28/22 10:08 NBM (Rec: 06/28/22 12:45 NBM [id number]) Therapeutic Exercises Sitting Exercises Ball roll Sitting Exercise Name rolling plantar fascia on ball Side left Equipment Used tennis ball Reps/Minutes 3' Pulleys Sitting Exercise Name Flex, Scap, Abduction Side right Equipment Used pulleys, mirror Reps/Minutes 5 min Comments cue scap set, R UT overactivation; gentle standing IR stretch dc'd d/t pain Standing Exercises Calf stretch Side bilateral Equipment Used JAKUB Reps/Minutes x60 IR/ER Standing Exercise Name ER/IR Side right Resistance Lv 3 Reps/Minutes x15 Comments cues for pain-free range (w/ ER start at belly, don't go past body) Rows Standing Exercise Name Rows Side bilateral Resistance Lv 3 Comments 45 deg, don't pull elbow behind body to reduce ant shoulder pain Extension Standing Exercise Name Shoulder Extension Side bilateral Resistance Lv 3 Manual Therapy Treatment Soft Tissue Mobilization Plantar fascia Body Location Left Plantar fascia Mobilization Type Myofascial Release,Rolling, Strumming,Sustained Pressure Intensity/Depth Moderate R shoulder Body Location R biceps, deltoid, pec, UT Mobilization Type Rolling,Strumming,Sustained Pressure Intensity/Depth Moderate Body Position Hooklying Comments Superficial>Moderate intensity to Biceps, Superificial to pec Joint Mobilizations GH Joint Glenohumeral Direction posterior; inferior; gentle scaption distraction w/ oscillations Grade II Body Position Hooklying Comments gentle, limited pain-free range, elbow supported w/ towel roll. Self-Care/Home Management Treatment Education Patient Education Home Exercise Program,Pain Management Other Education Edcuated pt on use of ice for pain management. Shoulder: HEP review of resisted R Shoulder IR/ER, Rows, Extension HEP issued: new Lvl 3 Tb and HO given w/ cues for scap setting, UT overactivation, chin tuck, not to pull elbow past body w/ Rows (pain-free ROM), and to stay in pain-free range w/ ER. Plantar fascia: Reviewed pt's personal stretching HEP for calves (lunge stretch). Added to HEP: self-STM to plantar fascia w/ frozen water bottle for pain management - HO given . Discussed: sleeping position w / feet propped in dorsiflexion to improve plantar fasciitis but pt states has attempted prior and affects sleep. PT-OP-R Modalities Start: 06/23/22 16:01 Freq: Status: Active Protocol: Document 06/28/22 10:08 NBM (Rec: 06/28/22 12:45 [facility] [id number]) Hot Pack/Cold Pack Treatment Cold Pack Location R shoulder Patient Position Hooklying Treatment Duration (minutes) 10 Patient Tolerance Good PT-OP-T Assessment and Plan Start: 06/23/22 16:01 Freq: Status: Active Protocol: Document 06/28/22 10:08 NBM (Rec: 06/28/22 12:45 NB [id number]) Physical Therapy Assessment Impairments Impairments Activity Tolerance,Functional Activities,Functional Mobility ,Gait,Pain,ROM,Soft Tissue Mobility,Strength Goals Three Impairment Left foot pain prevents pt from hiking Manufacturing Development Engineer Goal (LTG) Pt to return to usual activity of four mile hikes without left foot pain LTG Duration 08/24/22 Two Impairment Pt unable to fully participate in swimming due to shoulder pain [facility] Goal (LTG) Pt to return to swimming five days/week at his pre-injury intensity without increased pain LTG Duration 08/24/22 One Impairment Pt does not have an appropriate home exercise program Short Term Goal (STG) Pt to be independent and compliant with an appropriate HEP STG Duration 07/24/22 Assessment Summary Assessment Treatment focus on HEP review for R shoulder, manual therapy , and management of L plantar fasciitis. Pt requires consistent cues for scapular retraction and R UT overactivation w/ pulleys and shoulder exercises but improves w/ cueing, visual feedback and repetition. Pt struggles w/ staying in pain- free ROM and is educated to back off from increasing pain rather than tolerate it w/ exercises. Pt is especially challenged w/ R IR and gentle stretch w/ pulleys is discontinued due to pt's complaint of pain. Pain-free range is limited for gentle GH jt mobilizations w/ good feedback response to distraction in scaption plane. Pt educated on use of ice for pain management. Added to HEP : frozen water bottle STM to plantar fascia; and scapular retraction w/ resisted shoulder exercises w/ cues for UT overactivation and chin tuck, not to pull elbow past body w/ Rows, and to stay in pain-free range w/ ER - HO given. Physical Therapy Plan Frequency and Duration Frequency of Treatment 2x/Week Plan of Care Start Date 06/23/22 Plan of Care End Date 08/24/22 Therapeutic Interventions Therapeutic Interventions Home Exercise Program,Joint Mobilizations,Manual Therapy, Neuromuscular Re-education, Patient/Caregiver Education, Self-Care/Home Management,Soft Tissue Mobilization, Therapeutic Activities, Therapeutic Exercises Modalities Cold Pack/Ice Massage,Electric Stimulation,Hot Packs, Ultrasound Next Visit Focus/Plan Next Note Type Treatment Note Next Visit Plan Assess response to last treatment. Consider neck/ shoulder stretches, plantar fascia towel stretch, pool ex' s POC: ROM, shoulder strengthening, STM
--- NOTE | 2022-07-08 15:25 | PT.OTN ---
Current Diagnoses Pain in right shoulder (07/08/22) Plantar fascial fibromatosis (07/08/22) Other injury of muscle(s) and tendon(s) of the rotator cuff of right shoulder, subsequent encounter (07/08/22) Physical Therapy Treatment Note PT-OP-A Visit Information Start: 06/23/22 16:01 Freq: Status: Active Protocol: Document 07/08/22 14:36 NBM (Rec: 07/08/22 15:25 NBM [id number]) Out-Patient Physical Therapy Visit Information Visit Information Visit Type Treatment Note Visit Start Time 14:35 Visit Stop Time 15:15 Total Visit Minutes 40 Visit Number 3 Number of PHOTO COLORER Visits 2 PT-OP-B Current Condition Start: 06/23/22 16:01 Freq: Status: Active Protocol: Document 06/23/22 10:30 DCW (Rec: 06/23/22 16:13 DCW [id number]) Current Condition History of Current Condition Onset Date Four month history Current Complaints Right shoulder stiffness and pain following fall, L plantar fasciitis History of Current Condition Pt is a 66 year old male presenting with a four month history of right shoulder pain . Pt reports he was out hiking , started to slide down a slope, and tried to grab onto something to stop the fall, resulting in a FOOSH and an additional twisting injury of his right arm. Pt notes it had been very painful and limited most activity, but has improved quite a bit over the last four months since injury. Has returned to swimming, which is his main form of exercise, although there is still some associated discomfort in his shoulder. Additionally has some pain with trying to sleep on his right side, as well as doffing his jacket. Pt also notes a long-standing history of left plantar fasciitis, which he has undergone PT for in the past, which was largely beneficial, however he has continued to have difficulty with it over the past few years, noting he feels it causes his gait pattern to change, resulting in hip and knee pain as well. Treatment Goals Patient/Caregiver Goals Swim without increased shoulder pain, return to hiking four miles without increased foot pain. PT-OP-C Subjective Start: 06/23/22 16:01 Freq: Status: Active Protocol: Document 07/08/22 14:36 NBM (Rec: 07/08/22 15:25 NBM [id number]) OP-PT Subjective Patient Comments Patient Comments Pt reports he feels like his shoulder may have plateued, and started vertigo off and on since Monday. It was worst Monday with nausea and pt didn 't do ex's that day, but was able to Tu and Wed. He went back to pool Mon and uses a snorkel to keep his head straight instead of turning to breathe. When he rolls to L side he gets the vertigo symptoms. He messaged his Dr. and is taking a motion sickness med. (Sister has vertigo.) He made his own JAKUB for calf stretching. He's been walking 3 mi and feels his plantar fascia after but it's tolerable. Blue Superfeet seem ok. Tried frozen water bottle and it feels better. Pt sees ortho 07/18. PT-OP-E Functional Tests Start: 06/23/22 16:01 Freq: Status: Active Protocol: Document 06/23/22 10:30 DCW (Rec: 06/23/22 16:20 DCW [id number]) Functional Tests Apley's Scratch Test Action 1- Left Posterior opposite shoulder Action 1- Right Posterior opposite shoulder Action 2- Left T3 Action 2- Right T3 Action 3- Left T6 Action 3- Right T11 PT-OP-F Manual Assessment Start: 06/23/22 16:01 Freq: Status: Active Protocol: Document 06/23/22 10:30 DCW (Rec: 06/23/22 16:20 DCW [id number]) Manual Assessments Soft Tissue Assessment Soft Tissue Mobility Assessment Tenderness to palpation 3/4: wincing and withdraw along right biceps LH tendon and pec Tenderness to palpation 2/4: pain with wincing along right infraspinatus and subscapularis PT-OP-K Range of Motion Start: 06/23/22 16:01 Freq: Status: Active Protocol: Document 06/23/22 10:30 DCW (Rec: 06/23/22 16:20 DCW [id number]) Shoulder Goniometric Range of Motion Shoulder Right Active Testing Position Sitting Flexion 170 Abduction 155 External Rotation at 0 degrees Abduction 55 Internal Rotation Behind Back (text) T11 Left Active Flexion 170 Abduction 155 External Rotation at 0 degrees Abduction 55 Internal Rotation Behind Back (text) T6 PT-OP-L Special Tests Start: 06/23/22 16:01 Freq: Status: Active Protocol: Document 06/23/22 10:30 DCW (Rec: 06/23/22 16:20 DCW [id number]) Special Tests Shoulder Special Tests Speed's Biceps Test Results Positive R Passive ER Rotator Cuff Test Results Positive R Painful Arc Test Results Positive R Lift-Off Rotator Cuff Test Results Negative Melendez Eric Impingement Test Results Negative Grind Labrum Test Results Positive R Empty Can Test Results Negative Drop Arm Rotator Cuff Test Results Negative Clunk Test Test Results Positive R Belly Press Test Results Negative Apprehension Test Test Results Positive R PT-OP-M Strength Start: 06/23/22 16:01 Freq: Status: Active Protocol: Document 06/23/22 10:30 DCW (Rec: 06/23/22 16:20 DCW [id number]) Shoulder Strength Shoulder Manual Muscle Testing Right Flexion 4 Good Abduction (C5) 4 Good External Rotation 4 Good Internal Rotation 4 Good Comments Pain with resisted abduction Left Flexion 4+ Good+ Abduction (C5) 4+ Good+ External Rotation 4+ Good+ Internal Rotation 4+ Good+ PT-OP-Q Treatments Start: 06/23/22 16:01 Freq: Status: Active Protocol: Document 07/08/22 14:36 NBM (Rec: 07/08/22 15:25 NBM [id number]) Therapeutic Exercises Supine Exercises R shoulder Supine Exercise Name flexion, hor abd Side right Resistance AAROM Equipment Used wand Reps/Minutes x10 ea Comments vc gentle, pain-free range Sitting Exercises Pulleys Sitting Exercise Name Flex, Scap Side right Equipment Used pulleys, mirror Reps/Minutes 5 min Comments cue scap set, R UT overactivation; gentle standing IR stretch dc'd d/t pain Standing Exercises IR/ER Standing Exercise Name ER/IR Side right Resistance Lv 3 Reps/Minutes x15 Comments cues for pain-free range (w/ ER start at belly, don't go past body) Rows Standing Exercise Name Rows Side bilateral Resistance Lv 3 Comments 45 deg cues for UT overactivation, scap setting, arms parallel to floor Extension Standing Exercise Name Shoulder Extension Side bilateral Resistance Lv 3 Comments good form Manual Therapy Treatment Joint Mobilizations GH Joint Glenohumeral Direction gentle scaption distraction w/ oscillations Grade II Body Position Hooklying Comments gentle, limited pain-free range, elbow supported w/ towel roll. PT-OP-R Modalities Start: 06/23/22 16:01 Freq: Status: Active Protocol: Document 06/28/22 10:08 NBM (Rec: 06/28/22 12:45 [facility] [id number]) Hot Pack/Cold Pack Treatment Cold Pack Location R shoulder Patient Position Hooklying Treatment Duration (minutes) 10 Patient Tolerance Good PT-OP-T Assessment and Plan Start: 06/23/22 16:01 Freq: Status: Active Protocol: Document 07/08/22 14:36 NBM (Rec: 07/08/22 15:25 [facility] [id number]) Physical Therapy Assessment Goals Three Impairment Left foot pain prevents pt from hiking [facility] Goal (LTG) Pt to return to usual activity of four mile hikes without left foot pain LTG Duration 08/24/22 Two Impairment Pt unable to fully participate in swimming due to shoulder pain [facility] Goal (LTG) Pt to return to swimming five days/week at his pre-injury intensity without increased pain LTG Duration 08/24/22 One Impairment Pt does not have an appropriate home exercise program Short Term Goal (STG) Pt to be independent and compliant with an appropriate HEP STG Duration 07/24/22 Assessment Summary Assessment Pt demonstrates improved self- awareness of pain-free range by end of treatment session. Pt to check w/ ortho about possible shoulder imaging, and with PCP for referral to PT for vertigo. Physical Therapy Plan Frequency and Duration Frequency of Treatment 2x/Week Plan of Care Start Date 06/23/22 Plan of Care End Date 08/24/22 Therapeutic Interventions Therapeutic Interventions Home Exercise Program,Joint Mobilizations,Manual Therapy, Neuromuscular Re-education, Patient/Caregiver Education, Self-Care/Home Management,Soft Tissue Mobilization, Therapeutic Activities, Therapeutic Exercises Modalities Cold Pack/Ice Massage,Electric Stimulation,Hot Packs, Ultrasound Next Visit Focus/Plan Next Note Type Treatment Note Next Visit Plan Consider doorway pec stretch, neck/shoulder stretches, plantar fascia towel stretch, pool ex's POC: ROM, shoulder strengthening, STM
--- NOTE | 2022-07-12 11:15 | PT.OTN ---
Current Diagnoses Pain in right shoulder (07/12/22) Plantar fascial fibromatosis (07/12/22) Other injury of muscle(s) and tendon(s) of the rotator cuff of right shoulder, subsequent encounter (07/12/22) Physical Therapy Treatment Note PT-OP-A Visit Information Start: 06/23/22 16:01 Freq: Status: Active Protocol: Document 07/12/22 10:30 DCW (Rec: 07/12/22 11:15 DCW [id number]) Out-Patient Physical Therapy Visit Information Visit Information Visit Type Treatment Note Visit Start Time 10:30 Visit Stop Time 11:15 Total Visit Minutes 45 Visit Number 4 Number of TIRE MOLD TESTER Visits 0 PT-OP-B Current Condition Start: 06/23/22 16:01 Freq: Status: Active Protocol: Document 06/23/22 10:30 DCW (Rec: 06/23/22 16:13 DCW [id number]) Current Condition History of Current Condition Onset Date Four month history Current Complaints Right shoulder stiffness and pain following fall, L plantar fasciitis History of Current Condition Pt is a 66 year old male presenting with a four month history of right shoulder pain . Pt reports he was out hiking , started to slide down a slope, and tried to grab onto something to stop the fall, resulting in a FOOSH and an additional twisting injury of his right arm. Pt notes it had been very painful and limited most activity, but has improved quite a bit over the last four months since injury. Has returned to swimming, which is his main form of exercise, although there is still some associated discomfort in his shoulder. Additionally has some pain with trying to sleep on his right side, as well as doffing his jacket. Pt also notes a long-standing history of left plantar fasciitis, which he has undergone PT for in the past, which was largely beneficial, however he has continued to have difficulty with it over the past few years, noting he feels it causes his gait pattern to change, resulting in hip and knee pain as well. Treatment Goals Patient/Caregiver Goals Swim without increased shoulder pain, return to hiking four miles without increased foot pain. PT-OP-C Subjective Start: 06/23/22 16:01 Freq: Status: Active Protocol: Document 07/12/22 10:30 DCW (Rec: 07/12/22 11:15 DCW [id number]) OP-PT Subjective Patient Comments Patient Comments It doesn't affect the majority of things that I do, but it's about the same, can't really sleep on it, hurts when I take my jacket off. PT-OP-E Functional Tests Start: 06/23/22 16:01 Freq: Status: Active Protocol: Document 06/23/22 10:30 DCW (Rec: 06/23/22 16:20 DCW [id number]) Functional Tests Apley's Scratch Test Action 1- Left Posterior opposite shoulder Action 1- Right Posterior opposite shoulder Action 2- Left T3 Action 2- Right T3 Action 3- Left T6 Action 3- Right T11 PT-OP-F Manual Assessment Start: 06/23/22 16:01 Freq: Status: Active Protocol: Document 06/23/22 10:30 DCW (Rec: 06/23/22 16:20 DCW [id number]) Manual Assessments Soft Tissue Assessment Soft Tissue Mobility Assessment Tenderness to palpation 3/4: wincing and withdraw along right biceps LH tendon and pec Tenderness to palpation 2/4: pain with wincing along right infraspinatus and subscapularis PT-OP-K Range of Motion Start: 06/23/22 16:01 Freq: Status: Active Protocol: Document 06/23/22 10:30 DCW (Rec: 06/23/22 16:20 DCW [id number]) Shoulder Goniometric Range of Motion Shoulder Right Active Testing Position Sitting Flexion 170 Abduction 155 External Rotation at 0 degrees Abduction 55 Internal Rotation Behind Back (text) T11 Left Active Flexion 170 Abduction 155 External Rotation at 0 degrees Abduction 55 Internal Rotation Behind Back (text) T6 PT-OP-L Special Tests Start: 06/23/22 16:01 Freq: Status: Active Protocol: Document 06/23/22 10:30 DCW (Rec: 06/23/22 16:20 DCW [id number]) Special Tests Shoulder Special Tests Speed's Biceps Test Results Positive R Passive ER Rotator Cuff Test Results Positive R Painful Arc Test Results Positive R Lift-Off Rotator Cuff Test Results Negative Melendez Eric Impingement Test Results Negative Grind Labrum Test Results Positive R Empty Can Test Results Negative Drop Arm Rotator Cuff Test Results Negative Clunk Test Test Results Positive R Belly Press Test Results Negative Apprehension Test Test Results Positive R PT-OP-M Strength Start: 06/23/22 16:01 Freq: Status: Active Protocol: Document 06/23/22 10:30 DCW (Rec: 06/23/22 16:20 DCW [id number]) Shoulder Strength Shoulder Manual Muscle Testing Right Flexion 4 Good Abduction (C5) 4 Good External Rotation 4 Good Internal Rotation 4 Good Comments Pain with resisted abduction Left Flexion 4+ Good+ Abduction (C5) 4+ Good+ External Rotation 4+ Good+ Internal Rotation 4+ Good+ PT-OP-Q Treatments Start: 06/23/22 16:01 Freq: Status: Active Protocol: Document 07/12/22 10:30 DCW (Rec: 07/12/22 11:15 DCW [id number]) Therapeutic Exercises Sitting Exercises IR/ER Sitting Exercise Name IR/ER /c arm in 90/90 Side right Resistance 4.4 lb green ball Standing Exercises Pulleys Standing Exercise Name Standing IR /c pulleys Side right Flexion Standing Exercise Name Shoulder Flexion Side bilateral Resistance Lv 2 Abduction Standing Exercise Name Shoulder Abduction Side bilateral Resistance Lv 2 Rows Standing Exercise Name Rows Side bilateral Resistance Lv 4 Comments 45 deg abd Extension Standing Exercise Name Shoulder Extension Side bilateral Resistance Lv 4 Comments good form Manual Therapy Treatment Soft Tissue Mobilization R shoulder Body Location R biceps, deltoid, pec, UT Mobilization Type Rolling,Strumming,Sustained Pressure Intensity/Depth Moderate Body Position Hooklying Comments Superficial>Moderate intensity to Biceps, Superificial to pec Joint Mobilizations GH Joint Glenohumeral Direction gentle scaption distraction w/ oscillations Grade II Body Position Hooklying Comments gentle, limited pain-free range, elbow supported w/ towel roll. PT-OP-R Modalities Start: 06/23/22 16:01 Freq: Status: Active Protocol: Document 06/28/22 10:08 NBM (Rec: 06/28/22 12:45 NBM [id number]) Hot Pack/Cold Pack Treatment Cold Pack Location R shoulder Patient Position Hooklying Treatment Duration (minutes) 10 Patient Tolerance Good PT-OP-T Assessment and Plan Start: 06/23/22 16:01 Freq: Status: Active Protocol: Document 07/12/22 10:30 DCW (Rec: 07/12/22 11:15 DCW [id number]) Physical Therapy Assessment Impairments Impairments Activity Tolerance,Functional Activities,Functional Mobility ,Gait,Pain,ROM,Soft Tissue Mobility,Strength Goals Three Impairment Left foot pain prevents pt from hiking [facility] Goal (LTG) Pt to return to usual activity of four mile hikes without left foot pain LTG Duration 08/24/22 Two Impairment Pt unable to fully participate in swimming due to shoulder pain Primary Special Educator Goal (LTG) Pt to return to swimming five days/week at his pre-injury intensity without increased pain LTG Duration 08/24/22 One Impairment Pt does not have an appropriate home exercise program Short Term Goal (STG) Pt to be independent and compliant with an appropriate HEP STG Duration 07/24/22 Assessment Summary Assessment Pt shoulder ROM still fairly limited with ER/IR, functional movements with reaching back to don/doff jacket continue to be problematic. Pt reports interest in requesting MRI next week when he sees his ortho. Physical Therapy Plan Frequency and Duration Frequency of Treatment 2x/Week Plan of Care Start Date 06/23/22 Plan of Care End Date 08/24/22 Therapeutic Interventions Therapeutic Interventions Home Exercise Program,Joint Mobilizations,Manual Therapy, Neuromuscular Re-education, Patient/Caregiver Education, Self-Care/Home Management,Soft Tissue Mobilization, Therapeutic Activities, Therapeutic Exercises Modalities Cold Pack/Ice Massage,Electric Stimulation,Hot Packs, Ultrasound Next Visit Focus/Plan Next Note Type Treatment Note Next Visit Plan Consider doorway pec stretch, neck/shoulder stretches, plantar fascia towel stretch, pool ex's POC: ROM, shoulder strengthening, STM
--- NOTE | 2022-07-14 11:17 | PT.OTN ---
Current Diagnoses Pain in right shoulder (07/14/22) Plantar fascial fibromatosis (07/14/22) Other injury of muscle(s) and tendon(s) of the rotator cuff of right shoulder, subsequent encounter (07/14/22) Physical Therapy Treatment Note PT-OP-A Visit Information Start: 06/23/22 16:01 Freq: Status: Active Protocol: Document 07/14/22 10:30 DCW (Rec: 07/14/22 11:17 DCW [id number]) Out-Patient Physical Therapy Visit Information Visit Information Visit Type Treatment Note Visit Start Time 10:30 Visit Stop Time 11:15 Total Visit Minutes 45 Visit Number 5 Number of STRATEGIC ALLIANCES MANAGER Visits 0 Evaluation Information Evaluation Date 06/23/22 PT-OP-B Current Condition Start: 06/23/22 16:01 Freq: Status: Active Protocol: Document 06/23/22 10:30 DCW (Rec: 06/23/22 16:13 DCW [id number]) Current Condition History of Current Condition Onset Date Four month history Current Complaints Right shoulder stiffness and pain following fall, L plantar fasciitis History of Current Condition Pt is a 66 year old male presenting with a four month history of right shoulder pain . Pt reports he was out hiking , started to slide down a slope, and tried to grab onto something to stop the fall, resulting in a FOOSH and an additional twisting injury of his right arm. Pt notes it had been very painful and limited most activity, but has improved quite a bit over the last four months since injury. Has returned to swimming, which is his main form of exercise, although there is still some associated discomfort in his shoulder. Additionally has some pain with trying to sleep on his right side, as well as doffing his jacket. Pt also notes a long-standing history of left plantar fasciitis, which he has undergone PT for in the past, which was largely beneficial, however he has continued to have difficulty with it over the past few years, noting he feels it causes his gait pattern to change, resulting in hip and knee pain as well. Treatment Goals Patient/Caregiver Goals Swim without increased shoulder pain, return to hiking four miles without increased foot pain. PT-OP-C Subjective Start: 06/23/22 16:01 Freq: Status: Active Protocol: Document 07/14/22 10:30 DCW (Rec: 07/14/22 11:17 DCW [id number]) OP-PT Subjective Patient Comments Patient Comments it a little off today, I was doing some assembly in an awkward position, putting a TV stand up. Notes he actually felt really good following his last visit. PT-OP-E Functional Tests Start: 06/23/22 16:01 Freq: Status: Active Protocol: Document 06/23/22 10:30 DCW (Rec: 06/23/22 16:20 DCW [id number]) Functional Tests Apley's Scratch Test Action 1- Left Posterior opposite shoulder Action 1- Right Posterior opposite shoulder Action 2- Left T3 Action 2- Right T3 Action 3- Left T6 Action 3- Right T11 PT-OP-F Manual Assessment Start: 06/23/22 16:01 Freq: Status: Active Protocol: Document 06/23/22 10:30 DCW (Rec: 06/23/22 16:20 DCW [id number]) Manual Assessments Soft Tissue Assessment Soft Tissue Mobility Assessment Tenderness to palpation 3/4: wincing and withdraw along right biceps LH tendon and pec Tenderness to palpation 2/4: pain with wincing along right infraspinatus and subscapularis PT-OP-K Range of Motion Start: 06/23/22 16:01 Freq: Status: Active Protocol: Document 06/23/22 10:30 DCW (Rec: 06/23/22 16:20 DCW [id number]) Shoulder Goniometric Range of Motion Shoulder Right Active Testing Position Sitting Flexion 170 Abduction 155 External Rotation at 0 degrees Abduction 55 Internal Rotation Behind Back (text) T11 Left Active Flexion 170 Abduction 155 External Rotation at 0 degrees Abduction 55 Internal Rotation Behind Back (text) T6 PT-OP-L Special Tests Start: 06/23/22 16:01 Freq: Status: Active Protocol: Document 06/23/22 10:30 DCW (Rec: 06/23/22 16:20 DCW [id number]) Special Tests Shoulder Special Tests Speed's Biceps Test Results Positive R Passive ER Rotator Cuff Test Results Positive R Painful Arc Test Results Positive R Lift-Off Rotator Cuff Test Results Negative Melendez Eric Impingement Test Results Negative Grind Labrum Test Results Positive R Empty Can Test Results Negative Drop Arm Rotator Cuff Test Results Negative Clunk Test Test Results Positive R Belly Press Test Results Negative Apprehension Test Test Results Positive R PT-OP-M Strength Start: 06/23/22 16:01 Freq: Status: Active Protocol: Document 06/23/22 10:30 DCW (Rec: 06/23/22 16:20 DCW [id number]) Shoulder Strength Shoulder Manual Muscle Testing Right Flexion 4 Good Abduction (C5) 4 Good External Rotation 4 Good Internal Rotation 4 Good Comments Pain with resisted abduction Left Flexion 4+ Good+ Abduction (C5) 4+ Good+ External Rotation 4+ Good+ Internal Rotation 4+ Good+ PT-OP-Q Treatments Start: 06/23/22 16:01 Freq: Status: Active Protocol: Document 07/14/22 10:30 DCW (Rec: 07/14/22 11:17 DCW [id number]) Therapeutic Exercises Standing Exercises Chest press Standing Exercise Name Chest press/ press Resistance 5# Equipment Used PVC Bodyblade Standing Exercise Name Bodyblade Resistance Yellow Comments Flexion, Abduction Pulleys Standing Exercise Name Standing IR /c pulleys Side right Other Exercises Resisted Ambulation Other Exercise Name Resisted UE side-stepping Resistance Green Comments VCs to not use torso to support R arm Manual Therapy Treatment Soft Tissue Mobilization R shoulder Body Location R biceps, deltoid, pec, UT Mobilization Type Rolling,Strumming,Sustained Pressure Intensity/Depth Moderate Body Position Hooklying Comments Superficial>Moderate intensity to Biceps, Superificial to pec Joint Mobilizations GH Joint Glenohumeral Direction gentle scaption distraction w/ oscillations Grade II Body Position Hooklying Comments gentle, limited pain-free range. PT-OP-R Modalities Start: 06/23/22 16:01 Freq: Status: Active Protocol: Document 06/28/22 10:08 NBM (Rec: 06/28/22 12:45 NBM [id number]) Hot Pack/Cold Pack Treatment Cold Pack Location R shoulder Patient Position Hooklying Treatment Duration (minutes) 10 Patient Tolerance Good PT-OP-T Assessment and Plan Start: 06/23/22 16:01 Freq: Status: Active Protocol: Document 07/14/22 10:30 DCW (Rec: 07/14/22 11:17 DCW [id number]) Physical Therapy Assessment Impairments Impairments Activity Tolerance,Functional Activities,Functional Mobility ,Gait,Pain,ROM,Soft Tissue Mobility,Strength Goals Three Impairment Left foot pain prevents pt from hiking [facility] Home Goal (LTG) Pt to return to usual activity of four mile hikes without left foot pain LTG Duration 08/24/22 Two Impairment Pt unable to fully participate in swimming due to shoulder pain [facility] Home Goal (LTG) Pt to return to swimming five days/week at his pre-injury intensity without increased pain LTG Duration 08/24/22 One Impairment Pt does not have an appropriate home exercise program Short Term Goal (STG) Pt to be independent and compliant with an appropriate HEP STG Duration 07/24/22 Assessment Summary Assessment Pt showing some general improvement overall, slight improvements with IR/ER ROM, still able to swim frequently with no increased shoulder pain. Physical Therapy Plan Frequency and Duration Frequency of Treatment 2x/Week Plan of Care Start Date 06/23/22 Plan of Care End Date 08/24/22 Therapeutic Interventions Therapeutic Interventions Home Exercise Program,Joint Mobilizations,Manual Therapy, Neuromuscular Re-education, Patient/Caregiver Education, Self-Care/Home Management,Soft Tissue Mobilization, Therapeutic Activities, Therapeutic Exercises Modalities Cold Pack/Ice Massage,Electric Stimulation,Hot Packs, Ultrasound Next Visit Focus/Plan Next Note Type Treatment Note Next Visit Plan Consider doorway pec stretch, neck/shoulder stretches, plantar fascia towel stretch, pool ex's POC: ROM, shoulder strengthening, STM
--- NOTE | 2022-07-19 14:29 | PT.OTN ---
Current Diagnoses Pain in right shoulder (07/19/22) Plantar fascial fibromatosis (07/19/22) Other injury of muscle(s) and tendon(s) of the rotator cuff of right shoulder, subsequent encounter (07/19/22) Physical Therapy Treatment Note PT-OP-A Visit Information Start: 06/23/22 16:01 Freq: Status: Active Protocol: Document 07/19/22 13:45 DCW (Rec: 07/19/22 14:29 DCW [id number]) Out-Patient Physical Therapy Visit Information Visit Information Visit Type Treatment Note Visit Start Time 13:45 Visit Stop Time 14:30 Total Visit Minutes 45 Visit Number 6 Number of FILER HELPER Visits 0 Evaluation Information Evaluation Date 06/23/22 PT-OP-B Current Condition Start: 06/23/22 16:01 Freq: Status: Active Protocol: Document 06/23/22 10:30 DCW (Rec: 06/23/22 16:13 DCW [id number]) Current Condition History of Current Condition Onset Date Four month history Current Complaints Right shoulder stiffness and pain following fall, L plantar fasciitis History of Current Condition Pt is a 66 year old male presenting with a four month history of right shoulder pain . Pt reports he was out hiking , started to slide down a slope, and tried to grab onto something to stop the fall, resulting in a FOOSH and an additional twisting injury of his right arm. Pt notes it had been very painful and limited most activity, but has improved quite a bit over the last four months since injury. Has returned to swimming, which is his main form of exercise, although there is still some associated discomfort in his shoulder. Additionally has some pain with trying to sleep on his right side, as well as doffing his jacket. Pt also notes a long-standing history of left plantar fasciitis, which he has undergone PT for in the past, which was largely beneficial, however he has continued to have difficulty with it over the past few years, noting he feels it causes his gait pattern to change, resulting in hip and knee pain as well. Treatment Goals Patient/Caregiver Goals Swim without increased shoulder pain, return to hiking four miles without increased foot pain. PT-OP-C Subjective Start: 06/23/22 16:01 Freq: Status: Active Protocol: Document 07/19/22 13:45 DCW (Rec: 07/19/22 14:29 DCW [id number]) OP-PT Subjective Patient Comments Patient Comments Shoulder is about the same, notes he went swimming the past few days and is feeling it a bit. PT-OP-E Functional Tests Start: 06/23/22 16:01 Freq: Status: Active Protocol: Document 06/23/22 10:30 DCW (Rec: 06/23/22 16:20 DCW [id number]) Functional Tests Apley's Scratch Test Action 1- Left Posterior opposite shoulder Action 1- Right Posterior opposite shoulder Action 2- Left T3 Action 2- Right T3 Action 3- Left T6 Action 3- Right T11 PT-OP-F Manual Assessment Start: 06/23/22 16:01 Freq: Status: Active Protocol: Document 06/23/22 10:30 DCW (Rec: 06/23/22 16:20 DCW [id number]) Manual Assessments Soft Tissue Assessment Soft Tissue Mobility Assessment Tenderness to palpation 3/4: wincing and withdraw along right biceps LH tendon and pec Tenderness to palpation 2/4: pain with wincing along right infraspinatus and subscapularis PT-OP-K Range of Motion Start: 06/23/22 16:01 Freq: Status: Active Protocol: Document 06/23/22 10:30 DCW (Rec: 06/23/22 16:20 DCW [id number]) Shoulder Goniometric Range of Motion Shoulder Right Active Testing Position Sitting Flexion 170 Abduction 155 External Rotation at 0 degrees Abduction 55 Internal Rotation Behind Back (text) T11 Left Active Flexion 170 Abduction 155 External Rotation at 0 degrees Abduction 55 Internal Rotation Behind Back (text) T6 PT-OP-L Special Tests Start: 06/23/22 16:01 Freq: Status: Active Protocol: Document 06/23/22 10:30 DCW (Rec: 06/23/22 16:20 DCW [id number]) Special Tests Shoulder Special Tests Speed's Biceps Test Results Positive R Passive ER Rotator Cuff Test Results Positive R Painful Arc Test Results Positive R Lift-Off Rotator Cuff Test Results Negative Melendez Eric Impingement Test Results Negative Grind Labrum Test Results Positive R Empty Can Test Results Negative Drop Arm Rotator Cuff Test Results Negative Clunk Test Test Results Positive R Belly Press Test Results Negative Apprehension Test Test Results Positive R PT-OP-M Strength Start: 06/23/22 16:01 Freq: Status: Active Protocol: Document 06/23/22 10:30 DCW (Rec: 06/23/22 16:20 DCW [id number]) Shoulder Strength Shoulder Manual Muscle Testing Right Flexion 4 Good Abduction (C5) 4 Good External Rotation 4 Good Internal Rotation 4 Good Comments Pain with resisted abduction Left Flexion 4+ Good+ Abduction (C5) 4+ Good+ External Rotation 4+ Good+ Internal Rotation 4+ Good+ PT-OP-Q Treatments Start: 06/23/22 16:01 Freq: Status: Active Protocol: Document 07/19/22 13:45 DCW (Rec: 07/19/22 14:29 DCW [id number]) Therapeutic Exercises Supine Exercises Supine Fly Supine Exercise Name Supine Fly Side bilateral Resistance 4# Serratus Punch Supine Exercise Name Serratus punch Side bilateral Resistance 4# Standing Exercises Bodyblade Standing Exercise Name Bodyblade Resistance Yellow Comments Flexion, Abduction Pulleys Standing Exercise Name Standing IR /c pulleys Side right Other Exercises Wall Clock Other Exercise Name Wall Clock Side bilateral Resistance Green Resisted Ambulation Other Exercise Name Resisted UE side-stepping Resistance Green Comments VCs to not use torso to support R arm Manual Therapy Treatment Soft Tissue Mobilization R shoulder Body Location R biceps, deltoid, pec, UT Mobilization Type Rolling,Strumming,Sustained Pressure Intensity/Depth Moderate Body Position Hooklying Comments Superficial>Moderate intensity to Biceps, Superificial to pec Joint Mobilizations GH Joint Glenohumeral Direction gentle scaption distraction w/ oscillations Grade II Body Position Hooklying Comments gentle, limited pain-free range. PT-OP-R Modalities Start: 06/23/22 16:01 Freq: Status: Active Protocol: Document 06/28/22 10:08 NBM (Rec: 06/28/22 12:45 NB [id number]) Hot Pack/Cold Pack Treatment Cold Pack Location R shoulder Patient Position Hooklying Treatment Duration (minutes) 10 Patient Tolerance Good PT-OP-T Assessment and Plan Start: 06/23/22 16:01 Freq: Status: Active Protocol: Document 07/19/22 13:45 DCW (Rec: 07/19/22 14:29 DCW [id number]) Physical Therapy Assessment Impairments Impairments Activity Tolerance,Functional Activities,Functional Mobility ,Gait,Pain,ROM,Soft Tissue Mobility,Strength Goals Three Impairment Left foot pain prevents pt from hiking Chemical Weigher Goal (LTG) Pt to return to usual activity of four mile hikes without left foot pain LTG Duration 08/24/22 Two Impairment Pt unable to fully participate in swimming due to shoulder pain Chemical Weigher Goal (LTG) Pt to return to swimming five days/week at his pre-injury intensity without increased pain LTG Duration 08/24/22 One Impairment Pt does not have an appropriate home exercise program Short Term Goal (STG) Pt to be independent and compliant with an appropriate HEP STG Duration 07/24/22 Assessment Summary Assessment Pt having less pain overall when doing something like sleeping on his side, however still very limited with reaching behind himself or putting on a belt. Physical Therapy Plan Frequency and Duration Frequency of Treatment 2x/Week Plan of Care Start Date 06/23/22 Plan of Care End Date 08/24/22 Therapeutic Interventions Therapeutic Interventions Home Exercise Program,Joint Mobilizations,Manual Therapy, Neuromuscular Re-education, Patient/Caregiver Education, Self-Care/Home Management,Soft Tissue Mobilization, Therapeutic Activities, Therapeutic Exercises Modalities Cold Pack/Ice Massage,Electric Stimulation,Hot Packs, Ultrasound Next Visit Focus/Plan Next Note Type Treatment Note Next Visit Plan Consider doorway pec stretch, neck/shoulder stretches, plantar fascia towel stretch, pool ex's POC: ROM, shoulder strengthening, STM
--- NOTE | 2022-07-21 11:15 | PT.OTN ---
Current Diagnoses Pain in right shoulder (07/21/22) Plantar fascial fibromatosis (07/21/22) Other injury of muscle(s) and tendon(s) of the rotator cuff of right shoulder, subsequent encounter (07/21/22) Physical Therapy Treatment Note PT-OP-A Visit Information Start: 06/23/22 16:01 Freq: Status: Active Protocol: Document 07/21/22 10:30 DCW (Rec: 07/21/22 11:15 DCW [id number]) Out-Patient Physical Therapy Visit Information Visit Information Visit Type Treatment Note Visit Start Time 10:30 Visit Stop Time 11:15 Total Visit Minutes 45 Visit Number 7 Number of ASSESSOR Visits 0 Evaluation Information Evaluation Date 06/23/22 PT-OP-B Current Condition Start: 06/23/22 16:01 Freq: Status: Active Protocol: Document 06/23/22 10:30 DCW (Rec: 06/23/22 16:13 DCW [id number]) Current Condition History of Current Condition Onset Date Four month history Current Complaints Right shoulder stiffness and pain following fall, L plantar fasciitis History of Current Condition Pt is a 66 year old male presenting with a four month history of right shoulder pain . Pt reports he was out hiking , started to slide down a slope, and tried to grab onto something to stop the fall, resulting in a FOOSH and an additional twisting injury of his right arm. Pt notes it had been very painful and limited most activity, but has improved quite a bit over the last four months since injury. Has returned to swimming, which is his main form of exercise, although there is still some associated discomfort in his shoulder. Additionally has some pain with trying to sleep on his right side, as well as doffing his jacket. Pt also notes a long-standing history of left plantar fasciitis, which he has undergone PT for in the past, which was largely beneficial, however he has continued to have difficulty with it over the past few years, noting he feels it causes his gait pattern to change, resulting in hip and knee pain as well. Treatment Goals Patient/Caregiver Goals Swim without increased shoulder pain, return to hiking four miles without increased foot pain. PT-OP-C Subjective Start: 06/23/22 16:01 Freq: Status: Active Protocol: Document 07/21/22 10:30 DCW (Rec: 07/21/22 11:15 DCW [id number]) OP-PT Subjective Patient Comments Patient Comments I woke up kind of sore this morning. PT-OP-E Functional Tests Start: 06/23/22 16:01 Freq: Status: Active Protocol: Document 06/23/22 10:30 DCW (Rec: 06/23/22 16:20 DCW [id number]) Functional Tests Apley's Scratch Test Action 1- Left Posterior opposite shoulder Action 1- Right Posterior opposite shoulder Action 2- Left T3 Action 2- Right T3 Action 3- Left T6 Action 3- Right T11 PT-OP-F Manual Assessment Start: 06/23/22 16:01 Freq: Status: Active Protocol: Document 06/23/22 10:30 DCW (Rec: 06/23/22 16:20 DCW [id number]) Manual Assessments Soft Tissue Assessment Soft Tissue Mobility Assessment Tenderness to palpation 3/4: wincing and withdraw along right biceps LH tendon and pec Tenderness to palpation 2/4: pain with wincing along right infraspinatus and subscapularis PT-OP-K Range of Motion Start: 06/23/22 16:01 Freq: Status: Active Protocol: Document 06/23/22 10:30 DCW (Rec: 06/23/22 16:20 DCW [id number]) Shoulder Goniometric Range of Motion Shoulder Right Active Testing Position Sitting Flexion 170 Abduction 155 External Rotation at 0 degrees Abduction 55 Internal Rotation Behind Back (text) T11 Left Active Flexion 170 Abduction 155 External Rotation at 0 degrees Abduction 55 Internal Rotation Behind Back (text) T6 PT-OP-L Special Tests Start: 06/23/22 16:01 Freq: Status: Active Protocol: Document 06/23/22 10:30 DCW (Rec: 06/23/22 16:20 DCW [id number]) Special Tests Shoulder Special Tests Speed's Biceps Test Results Positive R Passive ER Rotator Cuff Test Results Positive R Painful Arc Test Results Positive R Lift-Off Rotator Cuff Test Results Negative Melendez Eric Impingement Test Results Negative Grind Labrum Test Results Positive R Empty Can Test Results Negative Drop Arm Rotator Cuff Test Results Negative Clunk Test Test Results Positive R Belly Press Test Results Negative Apprehension Test Test Results Positive R PT-OP-M Strength Start: 06/23/22 16:01 Freq: Status: Active Protocol: Document 06/23/22 10:30 DCW (Rec: 06/23/22 16:20 DCW [id number]) Shoulder Strength Shoulder Manual Muscle Testing Right Flexion 4 Good Abduction (C5) 4 Good External Rotation 4 Good Internal Rotation 4 Good Comments Pain with resisted abduction Left Flexion 4+ Good+ Abduction (C5) 4+ Good+ External Rotation 4+ Good+ Internal Rotation 4+ Good+ PT-OP-Q Treatments Start: 06/23/22 16:01 Freq: Status: Active Protocol: Document 07/21/22 10:30 DCW (Rec: 07/21/22 11:15 DCW [id number]) Therapeutic Exercises Standing Exercises Bodyblade Standing Exercise Name Bodyblade Resistance Yellow Comments Flexion, Abduction Pulleys Standing Exercise Name Standing IR /c pulleys Side right Other Exercises Wall Clock Other Exercise Name Wall Clock Side bilateral Resistance Green Resisted Ambulation Other Exercise Name Resisted UE side-stepping Resistance Green Comments VCs to not use torso to support R arm Manual Therapy Treatment Taping LH Biceps Tendon Body Location R LH Biceps Treatment Focus Y-strip up biceps, Y-strip arocss bicipital groove Type of Tape Kinesio Tape PT-OP-R Modalities Start: 06/23/22 16:01 Freq: Status: Active Protocol: Document 06/28/22 10:08 NBM (Rec: 06/28/22 12:45 NBM [id number]) Hot Pack/Cold Pack Treatment Cold Pack Location R shoulder Patient Position Hooklying Treatment Duration (minutes) 10 Patient Tolerance Good PT-OP-T Assessment and Plan Start: 06/23/22 16:01 Freq: Status: Active Protocol: Document 07/21/22 10:30 DCW (Rec: 07/21/22 11:15 DCW [id number]) Physical Therapy Assessment Assessment Summary Assessment Pt a little more sore with TherEx today, trial of K-tape for bicipital tendonitis to assess if this helps relieve pain. Physical Therapy Plan Frequency and Duration Frequency of Treatment 2x/Week Plan of Care Start Date 06/23/22 Plan of Care End Date 08/24/22 Therapeutic Interventions Therapeutic Interventions Home Exercise Program,Joint Mobilizations,Manual Therapy, Neuromuscular Re-education, Patient/Caregiver Education, Self-Care/Home Management,Soft Tissue Mobilization, Therapeutic Activities, Therapeutic Exercises Modalities Cold Pack/Ice Massage,Electric Stimulation,Hot Packs, Ultrasound Next Visit Focus/Plan Next Note Type Treatment Note Next Visit Plan Consider doorway pec stretch, neck/shoulder stretches, plantar fascia towel stretch, pool ex's POC: ROM, shoulder strengthening, STM
--- NOTE | 2022-07-27 12:53 | PT.OTN ---
Current Diagnoses Pain in right shoulder (07/27/22) Plantar fascial fibromatosis (07/27/22) Other injury of muscle(s) and tendon(s) of the rotator cuff of right shoulder, subsequent encounter (07/27/22) Physical Therapy Treatment Note PT-OP-A Visit Information Start: 06/23/22 16:01 Freq: Status: Active Protocol: Document 07/27/22 12:05 DCW (Rec: 07/27/22 12:53 DCW [id number]) Out-Patient Physical Therapy Visit Information Visit Information Visit Type Treatment Note Visit Start Time 12:05 Visit Stop Time 12:45 Total Visit Minutes 40 Visit Number 8 Number of METAL FITTER Visits 0 Evaluation Information Evaluation Date 06/23/22 PT-OP-B Current Condition Start: 06/23/22 16:01 Freq: Status: Active Protocol: Document 06/23/22 10:30 DCW (Rec: 06/23/22 16:13 DCW [id number]) Current Condition History of Current Condition Onset Date Four month history Current Complaints Right shoulder stiffness and pain following fall, L plantar fasciitis History of Current Condition Pt is a 66 year old male presenting with a four month history of right shoulder pain . Pt reports he was out hiking , started to slide down a slope, and tried to grab onto something to stop the fall, resulting in a FOOSH and an additional twisting injury of his right arm. Pt notes it had been very painful and limited most activity, but has improved quite a bit over the last four months since injury. Has returned to swimming, which is his main form of exercise, although there is still some associated discomfort in his shoulder. Additionally has some pain with trying to sleep on his right side, as well as doffing his jacket. Pt also notes a long-standing history of left plantar fasciitis, which he has undergone PT for in the past, which was largely beneficial, however he has continued to have difficulty with it over the past few years, noting he feels it causes his gait pattern to change, resulting in hip and knee pain as well. Treatment Goals Patient/Caregiver Goals Swim without increased shoulder pain, return to hiking four miles without increased foot pain. PT-OP-C Subjective Start: 06/23/22 16:01 Freq: Status: Active Protocol: Document 07/27/22 12:05 DCW (Rec: 07/27/22 12:53 DCW [id number]) OP-PT Subjective Patient Comments Patient Comments I went swimming this morning, didn't really feel anything, so that's a good day. PT-OP-E Functional Tests Start: 06/23/22 16:01 Freq: Status: Active Protocol: Document 06/23/22 10:30 DCW (Rec: 06/23/22 16:20 DCW [id number]) Functional Tests Apley's Scratch Test Action 1- Left Posterior opposite shoulder Action 1- Right Posterior opposite shoulder Action 2- Left T3 Action 2- Right T3 Action 3- Left T6 Action 3- Right T11 PT-OP-F Manual Assessment Start: 06/23/22 16:01 Freq: Status: Active Protocol: Document 06/23/22 10:30 DCW (Rec: 06/23/22 16:20 DCW [id number]) Manual Assessments Soft Tissue Assessment Soft Tissue Mobility Assessment Tenderness to palpation 3/4: wincing and withdraw along right biceps LH tendon and pec Tenderness to palpation 2/4: pain with wincing along right infraspinatus and subscapularis PT-OP-K Range of Motion Start: 06/23/22 16:01 Freq: Status: Active Protocol: Document 06/23/22 10:30 DCW (Rec: 06/23/22 16:20 DCW [id number]) Shoulder Goniometric Range of Motion Shoulder Right Active Testing Position Sitting Flexion 170 Abduction 155 External Rotation at 0 degrees Abduction 55 Internal Rotation Behind Back (text) T11 Left Active Flexion 170 Abduction 155 External Rotation at 0 degrees Abduction 55 Internal Rotation Behind Back (text) T6 PT-OP-L Special Tests Start: 06/23/22 16:01 Freq: Status: Active Protocol: Document 06/23/22 10:30 DCW (Rec: 06/23/22 16:20 DCW [id number]) Special Tests Shoulder Special Tests Speed's Biceps Test Results Positive R Passive ER Rotator Cuff Test Results Positive R Painful Arc Test Results Positive R Lift-Off Rotator Cuff Test Results Negative Melendez Eric Impingement Test Results Negative Grind Labrum Test Results Positive R Empty Can Test Results Negative Drop Arm Rotator Cuff Test Results Negative Clunk Test Test Results Positive R Belly Press Test Results Negative Apprehension Test Test Results Positive R PT-OP-M Strength Start: 06/23/22 16:01 Freq: Status: Active Protocol: Document 06/23/22 10:30 DCW (Rec: 06/23/22 16:20 DCW [id number]) Shoulder Strength Shoulder Manual Muscle Testing Right Flexion 4 Good Abduction (C5) 4 Good External Rotation 4 Good Internal Rotation 4 Good Comments Pain with resisted abduction Left Flexion 4+ Good+ Abduction (C5) 4+ Good+ External Rotation 4+ Good+ Internal Rotation 4+ Good+ PT-OP-Q Treatments Start: 06/23/22 16:01 Freq: Status: Active Protocol: Document 07/27/22 12:05 DCW (Rec: 07/27/22 12:53 DCW [id number]) Therapeutic Exercises Standing Exercises Wall Walk Standing Exercise Name Wall walk with end-range stretch Side right Bodyblade Standing Exercise Name Bodyblade Resistance Yellow Comments Flexion, Abduction Pulleys Standing Exercise Name Standing IR /c pulleys Side right Other Exercises Resisted Ambulation Other Exercise Name Resisted UE side-stepping Resistance Blue Comments VCs to not use torso to support R arm Manual Therapy Treatment Soft Tissue Mobilization R shoulder Body Location R biceps, deltoid, pec, [place] Mobilization Type Rolling,Strumming,Sustained Pressure Intensity/Depth Moderate Body Position Hooklying Comments Superficial>Moderate intensity to Biceps, Superificial to pec Joint Mobilizations GH Joint Glenohumeral Direction gentle scaption distraction w/ oscillations Grade II Body Position Hooklying Comments gentle, limited pain-free range. PT-OP-R Modalities Start: 06/23/22 16:01 Freq: Status: Active Protocol: Document 06/28/22 10:08 NBM (Rec: 06/28/22 12:45 NBM [id number]) Hot Pack/Cold Pack Treatment Cold Pack Location R shoulder Patient Position Hooklying Treatment Duration (minutes) 10 Patient Tolerance Good PT-OP-T Assessment and Plan Start: 06/23/22 16:01 Freq: Status: Active Protocol: Document 07/27/22 12:05 DCW (Rec: 07/27/22 12:53 DCW [id number]) Physical Therapy Assessment Impairments Impairments Activity Tolerance,Functional Activities,Functional Mobility ,Gait,Pain,ROM,Soft Tissue Mobility,Strength Goals Three Impairment Left foot pain prevents pt from hiking Electron Microscopist Goal (LTG) Pt to return to usual activity of four mile hikes without left foot pain LTG Duration 08/24/22 Two Impairment Pt unable to fully participate in swimming due to shoulder pain Electron Microscopist Goal (LTG) Pt to return to swimming five days/week at his pre-injury intensity without increased pain LTG Duration 08/24/22 One Impairment Pt does not have an appropriate home exercise program Short Term Goal (STG) Pt to be independent and compliant with an appropriate HEP STG Duration 07/24/22 Assessment Summary Assessment Pt will likely discharge or hold therapy following next week's visit due to upcoming long-distance road trip. Discussed way to continue HEP while driving across country. Physical Therapy Plan Frequency and Duration Frequency of Treatment 2x/Week Plan of Care Start Date 06/23/22 Plan of Care End Date 08/24/22 Therapeutic Interventions Therapeutic Interventions Home Exercise Program,Joint Mobilizations,Manual Therapy, Neuromuscular Re-education, Patient/Caregiver Education, Self-Care/Home Management,Soft Tissue Mobilization, Therapeutic Activities, Therapeutic Exercises Modalities Cold Pack/Ice Massage,Electric Stimulation,Hot Packs, Ultrasound Next Visit Focus/Plan Next Note Type Treatment Note Next Visit Plan Consider doorway pec stretch, neck/shoulder stretches, plantar fascia towel stretch, pool ex's POC: ROM, shoulder strengthening, STM
--- NOTE | 2022-08-05 15:59 | PT.OTN ---
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 Pt reports he was out hiking , started to slide down a slope, and tried to grab onto something to stop the fall, resulting in a FOOSH and an additional twisting injury of his right arm. Pt notes it had been very painful and limited most activity, but has improved quite a bit over the last four months since injury. Has returned to swimming, which is his main form of exercise, although there is still some associated discomfort in his shoulder. Additionally has some pain with trying to sleep on his right side, as well as doffing his jacket. Pt also notes a long-standing history of left plantar fasciitis, which he has undergone PT for in the past, which was largely beneficial, however he has continued to have difficulty with it over the past few years, noting he feels it causes his gait pattern to change, resulting in hip and knee pain as well. Treatment Goals Patient/Caregiver Goals Swim without increased shoulder pain, return to hiking four miles without increased foot pain. PT-OP-C Subjective Start: 06/23/22 16:01 Freq: Status: Active Protocol: Document 08/05/22 15:15 DCW (Rec: 08/05/22 15:59 DCW [id number]) OP-PT Subjective Patient Comments Patient Comments Pt notes most motions are getting easier, but reaching back is still quite difficult. PT-OP-E Functional Tests Start: 06/23/22 16:01 Freq: Status: Active Protocol: Document 06/23/22 10:30 DCW (Rec: 06/23/22 16:20 DCW [id number]) Functional Tests Apley's Scratch Test Action 1- Left Posterior opposite shoulder Action 1- Right Posterior opposite shoulder Action 2- Left T3 Action 2- Right T3 Action 3- Left T6 Action 3- Right T11 PT-OP-F Manual Assessment Start: 06/23/22 16:01 Freq: Status: Active Protocol: Document 06/23/22 10:30 DCW (Rec: 06/23/22 16:20 DCW [id number]) Manual Assessments Soft Tissue Assessment Soft Tissue Mobility Assessment Tenderness to palpation 3/4: wincing and withdraw along right biceps LH tendon and pec Tenderness to palpation 2/4: pain with wincing along right infraspinatus and subscapularis PT-OP-K Range of Motion Start: 06/23/22 16:01 Freq: Status: Active Protocol: Document 06/23/22 10:30 DCW (Rec: 06/23/22 16:20 DCW [id number]) Shoulder Goniometric Range of Motion Shoulder Right Active Testing Position Sitting Flexion 170 Abduction 155 External Rotation at 0 degrees Abduction 55 Internal Rotation Behind Back (text) T11 Left Active Flexion 170 Abduction 155 External Rotation at 0 degrees Abduction 55 Internal Rotation Behind Back (text) T6 PT-OP-L Special Tests Start: 06/23/22 16:01 Freq: Status: Active Protocol: Document 06/23/22 10:30 DCW (Rec: 06/23/22 16:20 DCW [id number]) Special Tests Shoulder Special Tests Speed's Biceps Test Results Positive R Passive ER Rotator Cuff Test Results Positive R Painful Arc Test Results Positive R Lift-Off Rotator Cuff Test Results Negative Melendez Eric Impingement Test Results Negative Grind Labrum Test Results Positive R Empty Can Test Results Negative Drop Arm Rotator Cuff Test Results Negative Clunk Test Test Results Positive R Belly Press Test Results Negative Apprehension Test Test Results Positive R PT-OP-M Strength Start: 06/23/22 16:01 Freq: Status: Active Protocol: Document 06/23/22 10:30 DCW (Rec: 06/23/22 16:20 DCW [id number]) Shoulder Strength Shoulder Manual Muscle Testing Right Flexion 4 Good Abduction (C5) 4 Good External Rotation 4 Good Internal Rotation 4 Good Comments Pain with resisted abduction Left Flexion 4+ Good+ Abduction (C5) 4+ Good+ External Rotation 4+ Good+ Internal Rotation 4+ Good+ PT-OP-Q Treatments Start: 06/23/22 16:01 Freq: Status: Active Protocol: Document 08/05/22 15:15 DCW (Rec: 08/05/22 15:58 DCW [id number]) Therapeutic Exercises Standing Exercises Pulleys Standing Exercise Name Standing IR /c pulleys Side right Flexion Standing Exercise Name UE PNF D1/D2 Flexion Side right Resistance Lv 3 Manual Therapy Treatment Soft Tissue Mobilization R shoulder Body Location R biceps, deltoid, pec, UT Mobilization Type Rolling,Strumming,Sustained Pressure Intensity/Depth Moderate Body Position Hooklying Comments Superficial>Moderate intensity to Biceps, Superificial to pec Joint Mobilizations GH Joint Glenohumeral Direction gentle scaption distraction w/ oscillations Grade II Body Position Hooklying Comments gentle, limited pain-free range. PT-OP-R Modalities Start: 06/23/22 16:01 Freq: Status: Active Protocol: Document 06/28/22 10:08 NBM (Rec: 06/28/22 12:45 NBM [id number]) Hot Pack/Cold Pack Treatment Cold Pack Location R shoulder Patient Position Hooklying Treatment Duration (minutes) 10 Patient Tolerance Good PT-OP-T Assessment and Plan Start: 06/23/22 16:01 Freq: Status: Active Protocol: Document 08/05/22 15:15 DCW (Rec: 08/05/22 15:58 DCW [id number]) Physical Therapy Assessment Impairments Impairments Activity Tolerance,Functional Activities,Functional Mobility ,Gait,Pain,ROM,Soft Tissue Mobility,Strength Goals Three Impairment Left foot pain prevents pt from hiking 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 Pt hoping to return to therapy if needed in ~1 month if he iis still experiencing shoulder pain. Physical Therapy Plan Frequency and Duration Frequency of Treatment 2x/Week Plan of Care Start Date 06/23/22 Plan of Care End Date 08/24/22 Therapeutic Interventions Therapeutic Interventions Home Exercise Program,Joint Mobilizations,Manual Therapy, Neuromuscular Re-education, Patient/Caregiver Education, Self-Care/Home Management,Soft Tissue Mobilization, Therapeutic Activities, Therapeutic Exercises Modalities Cold Pack/Ice Massage,Electric Stimulation,Hot Packs, Ultrasound Next Visit Focus/Plan Next Note Type Treatment Note Next Visit Plan Consider doorway pec stretch, neck/shoulder stretches, plantar fascia towel stretch, pool ex's POC: ROM, shoulder strengthening, STM
--- NOTE | 2022-12-12 17:16 | PT.OPDS ---
Current Diagnoses Pain in right shoulder (08/05/22) Plantar fascial fibromatosis (08/05/22) Other injury of muscle(s) and tendon(s) of the rotator cuff of right shoulder, subsequent encounter (08/05/22) Visit Care Team Role Provider Type Carlos Reynolds MD Attending Provider Physician Family Provider Primary Care Provider Referring Provider Specialty: Internal Medicine Address: [address] [place] [address], [address], [facility] Email: [email or web address] Visit Number Visit Number 9 Discharge Summary PT-OP-B Current Condition Start: 06/23/22 16:01 Freq: Status: Active Protocol: Document 06/23/22 10:30 DCW (Rec: 06/23/22 16:13 DCW [id number]) Current Condition History of Current Condition Onset Date Four month history Current Complaints Right shoulder stiffness and pain following fall, L plantar fasciitis History of Current Condition Pt is a 66 year old male presenting with a four month history of right shoulder pain . Pt reports he was out hiking , started to slide down a slope, and tried to grab onto something to stop the fall, resulting in a FOOSH and an additional twisting injury of his right arm. Pt notes it had been very painful and limited most activity, but has improved quite a bit over the last four months since injury. Has returned to swimming, which is his main form of exercise, although there is still some associated discomfort in his shoulder. Additionally has some pain with trying to sleep on his right side, as well as doffing his jacket. Pt also notes a long-standing history of left plantar fasciitis, which he has undergone PT for in the past, which was largely beneficial, however he has continued to have difficulty with it over the past few years, noting he feels it causes his gait pattern to change, resulting in hip and knee pain as well. Treatment Goals Patient/Caregiver Goals Swim without increased shoulder pain, return to hiking four miles without increased foot pain. PT-OP-C Subjective Start: 06/23/22 16:01 Freq: Status: Active Protocol: Document 08/05/22 15:15 DCW (Rec: 08/05/22 15:59 DCW [id number]) OP-PT Subjective Patient Comments Patient Comments Pt notes most motions are getting easier, but reaching back is still quite difficult. PT-OP-E Functional Tests Start: 06/23/22 16:01 Freq: Status: Active Protocol: Document 06/23/22 10:30 DCW (Rec: 06/23/22 16:20 DCW [id number]) Functional Tests Apley's Scratch Test Action 1- Left Posterior opposite shoulder Action 1- Right Posterior opposite shoulder Action 2- Left T3 Action 2- Right T3 Action 3- Left T6 Action 3- Right T11 PT-OP-F Manual Assessment Start: 06/23/22 16:01 Freq: Status: Active Protocol: Document 06/23/22 10:30 DCW (Rec: 06/23/22 16:20 DCW [id number]) Manual Assessments Soft Tissue Assessment Soft Tissue Mobility Assessment Tenderness to palpation 3/4: wincing and withdraw along right biceps LH tendon and pec Tenderness to palpation 2/4: pain with wincing along right infraspinatus and subscapularis PT-OP-K Range of Motion Start: 06/23/22 16:01 Freq: Status: Active Protocol: Document 06/23/22 10:30 DCW (Rec: 06/23/22 16:20 DCW [id number]) Shoulder Goniometric Range of Motion Shoulder Right Active Testing Position Sitting Flexion 170 Abduction 155 External Rotation at 0 degrees Abduction 55 Internal Rotation Behind Back (text) T11 Left Active Flexion 170 Abduction 155 External Rotation at 0 degrees Abduction 55 Internal Rotation Behind Back (text) T6 PT-OP-L Special Tests Start: 06/23/22 16:01 Freq: Status: Active Protocol: Document 06/23/22 10:30 DCW (Rec: 06/23/22 16:20 DCW [id number]) Special Tests Shoulder Special Tests Speed's Biceps Test Results Positive R Passive ER Rotator Cuff Test Results Positive R Painful Arc Test Results Positive R Lift-Off Rotator Cuff Test Results Negative Melendez Eric Impingement Test Results Negative Grind Labrum Test Results Positive R Empty Can Test Results Negative Drop Arm Rotator Cuff Test Results Negative Clunk Test Test Results Positive R Belly Press Test Results Negative Apprehension Test Test Results Positive R PT-OP-M Strength Start: 06/23/22 16:01 Freq: Status: Active Protocol: Document 06/23/22 10:30 DCW (Rec: 06/23/22 16:20 DCW [id number]) Shoulder Strength Shoulder Manual Muscle Testing Right Flexion 4 Good Abduction (C5) 4 Good External Rotation 4 Good Internal Rotation 4 Good Comments Pain with resisted abduction Left Flexion 4+ Good+ Abduction (C5) 4+ Good+ External Rotation 4+ Good+ Internal Rotation 4+ Good+ PT-OP-T Assessment and Plan Start: 06/23/22 16:01 Freq: Status: Active Protocol: Document 12/12/22 17:15 [facility] (Rec: 12/12/22 17:16 [facility] [id number]) Physical Therapy Assessment Assessment Summary Assessment Pt was planning to return to skilled therapy one month after his last appointment following a cross-country road trip if his shoulder was still bothering him. Pt has now not been seen in more than four months, POC has now . Pt will require a new referral in order to return to skilled therapy. Pt will be discharged from PT at this time. Physical Therapy Plan Discharge Physical Therapy Discharge Reasons No Longer Attending PT
== END 2022-12-13 12:27 | disposition home or self-care (01) ==
LOC: PHYS 15:15
PROVIDERS: Family Provider Internal Medicine; PCP Internal Medicine; Referring Provider Internal Medicine; Visit Provider Internal Medicine
DX: M25.511 Pain in right shoulder (principal); S46.091D Other injury of muscle(s) and tendon(s) of the rotator cuff of right shoulder, subsequent encounter; M72.2 Plantar fascial fibromatosis
CPT/HCPCS: 97110; 97140; 97161; 97535

== ENCOUNTER → 2022-12-13 08:34 | Outpatient (CLI) | payer OTHER, SELFPAY ==
[2022-12-13 09:57] LABS: Add Manual Diff / Slide Review NO; Basophils Absolute Auto 100 /uL (0-100); Basophils Percent Auto 0.9 % (0-2); Eosinophils Absolute Auto 400 /uL (0-450); Eosinophils Percent Auto 4.3 % (2-4); Hematocrit 45.3 % (41-53); Hemoglobin 16.1 g/dL (13.5-17.5); Lymphocytes Absolute Auto 2400 /uL (1100-4500); Mean Corpuscular HGB Conc 35.5 % (30-36); Mean Corpuscular Hemoglobin 32.1 PG (26-34); Mean Corpuscular Volume 90.4 fL (80-100); Monocytes Absolute Auto 700 /uL (0-900); Monocytes Percent Auto 7.9 % (3-14); Neutrophils Absolute Auto 5000 /uL (1500-7000); Neutrophils Percent Auto 58.9 % (50-75); Platelet Count 197 X10^3/uL (150-400); Red Blood Cell Count 5.01 X10^6/uL (4.5-5.9); Red Cell Distribution Width 13.2 % (11.6-14.8); White Blood Cell Count 8.5 X10^3/uL (4.5-11.0)
[2022-12-13 10:16] LABS: Alanine Aminotransferase 28 IU/L (<50); Albumin 4.7 g/dL (3.5-5.0); Albumin Globulin Ratio 1.5 (1.0-2.8); Alkaline Phosphatase 44 U/L (38-126); Aspartate Aminotransferase 28 IU/L (17-59); BUN Creatinine Ratio 19.8 (6-22); Bilirubin Total 1.3 mg/dL (0.2-1.3); Blood Urea Nitrogen 18 mg/dL (9-20); Calcium 9.1 mg/dL (8.4-10.2); Carbon Dioxide 28 mmol/L (22-32); Chloride 101 mmol/L (98-107); Estimated Glomerular Filt Rate > 60 mL/min (>60); Globulin 3.2 g/dL (1.7-4.1); Glucose 101 mg/dL (80-110); HEMOLYSIS < 15 (0-50); Potassium 4.5 mmol/L (3.4-5.1); Sodium 138 mmol/L (137-145); Total Protein 7.9 g/dL (6.3-8.2)
[2022-12-13 13:10] LABS: Cholesterol 128 mg/dL (140-199); HDL Cholesterol 56 mg/dL (40-60); LDL Cholesterol Calculated 58 mg/dL (<100); Triglycerides 72 mg/dL (35-150)
[2022-12-13 13:42] LABS: Prostate Specific Antigen Scrn 1.57 ng/mL (0.1-4.0)
[2022-12-15 06:37] LABS: QuantiFERON Mitogen Value >10.00 IU/mL (.); QuantiFERON Nil Value 0.04 IU/mL (.); QuantiFERON TB Gold Plus Negative (Negative); QuantiFERON TB1 Ag Value 0.13 IU/mL (.); QuantiFERON TB2 Ag Value 0.15 IU/mL (.)
== END ==
PROVIDERS: Family Provider Internal Medicine; PCP Internal Medicine; Referring Provider Dermatology; Visit Provider Dermatology
DX: L40.0 Psoriasis vulgaris (principal); Z12.5 Encounter for screening for malignant neoplasm of prostate; B35.3 Tinea pedis; L82.1 Other seborrheic keratosis; I10 Essential (primary) hypertension; I25.10 Atherosclerotic heart disease of native coronary artery without angina pectoris; E78.2 Mixed hyperlipidemia
CPT/HCPCS: 36415; 80053; 80061; 85025; 86480; G0103

== ENCOUNTER → 2023-06-03 13:08 | Outpatient (CLI) | payer OTHER, SELFPAY ==
[2023-06-03 14:09] LABS: COVID-19 CEPHEID 4-PLEX PCR Negative (Negative); Influenza A - CEPHEID Flu A NEGATIVE (NEGATIVE); Influenza B - CEPHEID Flu B NEGATIVE (NEGATIVE); Respiratory Syncytial Virus Negative (Negative)
== END ==
PROVIDERS: Family Provider Internal Medicine; PCP Internal Medicine; Visit Provider Physician Assistant
DX: R05.1 Acute cough (principal)
CPT/HCPCS: 0241U

== ENCOUNTER → 2023-07-18 11:46 | Outpatient (CLI) | payer OTHER, SELFPAY ==
[2023-07-18 12:18] LABS: Add Manual Diff / Slide Review NO; Basophils Absolute Auto 100 /uL (0-100); Eosinophils Absolute Auto 300 /uL (0-450); Eosinophils Percent Auto 3.2 % (2-4); Hematocrit 43.7 % (41-53); Hemoglobin 15.4 g/dL (13.5-17.5); Lymphocytes Absolute Auto 2400 /uL (1100-4500); Lymphocytes Percent Auto 26.6 % (25-40); Mean Corpuscular HGB Conc 35.3 % (30-36); Mean Corpuscular Volume 90.7 fL (80-100); Monocytes Absolute Auto 900 /uL (0-900); Monocytes Percent Auto 9.5 % (3-14); Neutrophils Absolute Auto 5400 /uL (1500-7000); Neutrophils Percent Auto 59.7 % (50-75); Platelet Count 199 X10^3/uL (150-400); Red Blood Cell Count 4.82 X10^6/uL (4.5-5.9); Red Cell Distribution Width 13.5 % (11.6-14.8); White Blood Cell Count 9.1 X10^3/uL (4.5-11.0)
[2023-07-18 12:44] LABS: Alanine Aminotransferase 26 IU/L (<50); Albumin 4.2 g/dL (3.5-5.0); Albumin Globulin Ratio 1.2 (1.0-2.8); Alkaline Phosphatase 40 U/L (38-126); Aspartate Aminotransferase 30 IU/L (17-59); BUN Creatinine Ratio 19.5 (6-22); Bilirubin Total 1.1 mg/dL (0.2-1.3); Blood Urea Nitrogen 16 mg/dL (9-20); Calcium 9.2 mg/dL (8.4-10.2); Carbon Dioxide 28 mmol/L (22-32); Chloride 103 mmol/L (98-107); Estimated Glomerular Filt Rate > 60 mL/min (>60); Globulin 3.6 g/dL (1.7-4.1); Glucose 85 mg/dL (80-110); HEMOLYSIS 18 (0-50); Potassium 4.5 mmol/L (3.4-5.1); Sodium 138 mmol/L (137-145); Total Protein 7.8 g/dL (6.3-8.2)
[2023-07-18 13:14] LABS: TSH w/ Reflex to FT4 2.22 uIU/mL (0.47-4.68)
== END ==
PROVIDERS: Family Provider Internal Medicine; PCP Internal Medicine; Referring Provider Internal Medicine; Visit Provider Internal Medicine
DX: I10 Essential (primary) hypertension (principal); E78.2 Mixed hyperlipidemia; I25.10 Atherosclerotic heart disease of native coronary artery without angina pectoris; R00.2 Palpitations
CPT/HCPCS: 36415; 80053; 84443; 85025

== ENCOUNTER → 2023-07-26 10:10 | Outpatient (CLI) | payer OTHER, SELFPAY | PROVIDERS: Family Provider Internal Medicine; PCP Internal Medicine; Referring Provider Internal Medicine; Visit Provider Internal Medicine | DX: R00.2 Palpitations (principal) | CPT/HCPCS: 93246 ==

== ENCOUNTER → 2023-12-05 08:02 | Outpatient (CLI) | payer OTHER, SELFPAY ==
[2023-12-05 09:59] LABS: Add Manual Diff / Slide Review NO; Basophils Absolute Auto 100 /uL (0-100); Basophils Percent Auto 0.8 % (0-2); Eosinophils Absolute Auto 200 /uL (0-450); Eosinophils Percent Auto 2.8 % (2-4); Hematocrit 42.9 % (41-53); Hemoglobin 14.8 g/dL (13.5-17.5); Lymphocytes Absolute Auto 2200 /uL (1100-4500); Lymphocytes Percent Auto 26.8 % (25-40); Mean Corpuscular HGB Conc 34.6 % (30-36); Mean Corpuscular Hemoglobin 31.1 PG (26-34); Monocytes Absolute Auto 800 /uL (0-900); Monocytes Percent Auto 9.3 % (3-14); Neutrophils Absolute Auto 5000 /uL (1500-7000); Neutrophils Percent Auto 60.3 % (50-75); Platelet Count 204 X10^3/uL (150-400); Red Blood Cell Count 4.77 X10^6/uL (4.5-5.9); Red Cell Distribution Width 13.3 % (11.6-14.8); White Blood Cell Count 8.3 X10^3/uL (4.5-11.0)
[2023-12-05 10:17] LABS: Alanine Aminotransferase 30 IU/L (<50); Albumin 4.2 g/dL (3.5-5.0); Albumin Globulin Ratio 1.4 (1.0-2.8); Alkaline Phosphatase 48 U/L (38-126); Aspartate Aminotransferase 32 IU/L (17-59); BUN Creatinine Ratio 20.2 (6-22); Bilirubin Total 1.4 mg/dL (0.2-1.3); Blood Urea Nitrogen 17 mg/dL (9-20); Calcium 8.8 mg/dL (8.4-10.2); Carbon Dioxide 29 mmol/L (22-32); Chloride 106 mmol/L (98-107); Cholesterol 119 mg/dL (140-199); Estimated Glomerular Filt Rate > 60 mL/min (>60); Globulin 2.9 g/dL (1.7-4.1); Glucose 101 mg/dL (80-110); HDL Cholesterol 54 mg/dL (40-60); HEMOLYSIS < 15 (0-50); LDL Cholesterol Calculated 48 mg/dL (<100); Potassium 4.8 mmol/L (3.4-5.1); Sodium 138 mmol/L (137-145); Total Protein 7.1 g/dL (6.3-8.2); Triglycerides 85 mg/dL (35-150)
[2023-12-05 10:41] LABS: Prostate Specific Antigen Scrn 1.68 ng/mL (0.1-4.0)
[2023-12-05 13:32] LABS: Occult Blood 1 Negative (Negative); Occult Blood 2 Positive (Negative); Occult Blood 3 Negative (Negative)
== END ==
LOC: LAB 08:04
PROVIDERS: Family Provider Internal Medicine; PCP Internal Medicine; Referring Provider Registered Nurse; Visit Provider Registered Nurse
DX: Z12.5 Encounter for screening for malignant neoplasm of prostate (principal); L40.0 Psoriasis vulgaris; I10 Essential (primary) hypertension; E78.2 Mixed hyperlipidemia; D72.10 Eosinophilia, unspecified; R19.7 Diarrhea, unspecified
CPT/HCPCS: 36415; 80053; 80061; 82270; 83631; 85025; 86480; 87177; 87329; G0103

== ENCOUNTER → 2023-12-14 09:36 | Outpatient (CLI) | payer OTHER, SELFPAY ==
[2023-12-14 16:23] LABS: Adenovirus F 40/41 Not Detected (Not Detect); Astrovirus Not Detected (Not Detect); Campylobacter Not Detected (Not Detect); Clostridium difficile toxin AB Detected (Not Detect); Cryptosporidium Not Detected (Not Detect); Cyclospora cayetanensis Not Detected (Not Detect); Entamoeba histolytica Not Detected (Not Detect); Enteroaggregative E.coli Not Detected (Not Detect); Enteropathogenic E.coli Not Detected (Not Detect); Enterotoxigenic E.coli It/st Not Detected (Not Detect); Giardia lamblia Not Detected (Not Detect); Norovirus GI/GII Not Detected (Not Detect); Plesiomonsa shigelloides Not Detected (Not Detect); Rotavirus A Not Detected (Not Detect); Salmonella Not Detected (Not Detect); Sapovirus Not Detected (Not Detect); Shiga-like toxin-prod E.coli Not Detected (Not Detect); Shigella/Enteroinvasive E.coli Not Detected (Not Detect); Vibrio Not Detected (Not Detect); Vibrio cholerae Not Detected (Not Detect); Yersinia enterocolitica Not Detected (Not Detect)
== END ==
LOC: LAB 09:37
PROVIDERS: Family Provider Internal Medicine; PCP Internal Medicine; Referring Provider Internal Medicine; Visit Provider Internal Medicine
DX: K92.1 Melena (principal); R19.7 Diarrhea, unspecified
CPT/HCPCS: 87324; 87507

== ENCOUNTER → 2024-03-18 07:10 | Outpatient (CLI) | payer OTHER, SELFPAY ==
[2024-03-20 21:36] LABS: Calprotectin, Stool 22 ug/g (0-120)
== END ==
PROVIDERS: Family Provider Internal Medicine; PCP Internal Medicine; Referring Provider Internal Medicine Gastroenterology; Visit Provider Internal Medicine Gastroenterology
DX: A04.72 Enterocolitis due to Clostridium difficile, not specified as recurrent (principal)
CPT/HCPCS: 83993

== ENCOUNTER → 2024-06-10 15:49 | Outpatient (CLI) | payer OTHER, SELFPAY ==
--- NOTE | 2024-06-10 15:50 | DI.CT.S_ITS ---
PROCEDURE: CT LUNG LOW DOSE SCREENING INDICATIONS: screening TECHNIQUE: Noncontrast 2.0-2.5 mm thick sections acquired from the pulmonary apices to the posterior costophrenic angles. 7 mm thick axial MIP, and 5 mm coronal and sagittal reformats were then acquired. For radiation dose reduction, the following was used: automated exposure control, adjustment of mA and/or kV according to patient size. COMPARISON: None. FINDINGS: Image quality: Diagnostic. Lower Neck: No enlarged lymph nodes. Thyroid: No thyroid nodules which require sonographic follow up, per consensus guidelines. Axillae: Numerous bilateral axillary lymph nodes are more notable for number rather than size and likely reactive in etiology. Chest Wall: Unremarkable. Bones: Visualized osseous structures appear intact without acute fracture or focal destructive lesion. No acute compression fractures of the imaged spine. Lungs and Pleura: Mild upper lobe predominant pulmonary emphysematous changes. Multiple scattered sub 6 mm pulmonary nodules more numerous on the right. For example largest nodule in the right hemithorax is seen in the right lower lobe measuring approximately 5 mm (193/series 3) and the largest in the left hemithorax is seen in the superior left lower lobe measuring 4 mm (143/series 3). No septal thickening or nodularity. Visualized airways appear clear. Heart: Heart size is normal. No pericardial effusion. Multivessel atherosclerotic calcifications of the coronary arteries. Thoracic Vessels: The aorta and pulmonary arteries demonstrate normal size. Atherosclerotic calcifications of the aortic arch are present. Mediastinum and Rosmery: No enlarged lymph nodes. Esophagus: No wall thickening. No hiatal hernia. Upper Abdomen: Visualized upper abdomen solid organs and bowel loops appear normal. Status post cholecystectomy. IMPRESSION: Multiple sub 6 mm nodules identified in the bilateral hemithoraces. No suspicious pulmonary nodules identified. LUNG-RADS 2; continued annual screening, if eligible. Clinically Significant Non-pulmonary Findings: Coronary atherosclerosis. Dictated by: Keenan Sanchez M.D. on 06/10/2024 at 16:51 Approved by: Keenan Sanchez M.D. on 06/10/2024 at 16:57
== END ==
PROVIDERS: Family Provider Internal Medicine; PCP Internal Medicine; Referring Provider Internal Medicine; Visit Provider Internal Medicine
DX: Z87.891 Personal history of nicotine dependence (principal); Z12.2 Encounter for screening for malignant neoplasm of respiratory organs; R91.8 Other nonspecific abnormal finding of lung field; I25.10 Atherosclerotic heart disease of native coronary artery without angina pectoris
CPT/HCPCS: 71271

== ENCOUNTER → 2024-07-04 11:56 | Outpatient (CLI) | payer OTHER, SELFPAY | PROVIDERS: Family Provider Internal Medicine; PCP Internal Medicine; Referring Provider Internal Medicine; Visit Provider Internal Medicine | DX: R06.02 Shortness of breath (principal); Z87.891 Personal history of nicotine dependence; R94.2 Abnormal results of pulmonary function studies; G47.33 Obstructive sleep apnea (adult) (pediatric) | CPT/HCPCS: 94060; 94726; 94729 ==

== ENCOUNTER → 2024-09-24 16:16 | Outpatient (CLI) | payer OTHER, SELFPAY ==
--- NOTE | 2024-09-24 16:19 | DI.RAD.S_ITS ---
PROCEDURE: XR PELVIS 1-2V INDICATIONS: pelvic pain TECHNIQUE: AP view (s) of the pelvis acquired. COMPARISON: None. FINDINGS: Bones: There are no osseous abnormalities. SI and hip joints: Moderate right and minimal left hip degenerative change noted. SI joints are normal. Moderate L5-S1 degenerative facet disc disease seen. Soft tissues: No soft tissue swelling, calcification or mass. IMPRESSION: Degeneration. Dictated by: Carlos Fernández M.D. on 09/25/2024 at 7:53 Approved by: Carlos Fernández M.D. on 09/25/2024 at 7:54
[2024-09-24 18:29] LABS: Prostate Specific Antigen 2.08 ng/mL (0.10-4.00)
== END ==
PROVIDERS: Family Provider Internal Medicine; PCP Internal Medicine; Referring Provider Internal Medicine; Visit Provider Internal Medicine
DX: N41.9 Inflammatory disease of prostate, unspecified (principal); R10.2 Pelvic and perineal pain; M89.8X8 Other specified disorders of bone, other site
CPT/HCPCS: 36415; 72170; 84153

== ENCOUNTER → 2025-05-14 14:41 | Outpatient (CLI) | payer OTHER, SELFPAY ==
[2025-05-14 14:58] LABS: Add Manual Diff / Slide Review NO; Hematocrit 43.6 % (41-53); Hemoglobin 15.2 g/dL (13.5-17.5); Lymphocytes Absolute Auto 2600 /uL (1100-4500); Mean Corpuscular HGB Conc 34.8 % (30-36); Mean Corpuscular Hemoglobin 31.6 PG (26-34); Mean Corpuscular Volume 90.7 fL (80-100); Platelet Count 187 X10^3/uL (150-400)
[2025-05-14 15:34] LABS: Alanine Aminotransferase 24 IU/L (<50); Albumin 4.4 g/dL (3.5-5.0); Albumin Globulin Ratio 1.4 (1.0-2.8); Alkaline Phosphatase 44 U/L (38-126); Blood Urea Nitrogen 19 mg/dL (9-20); Calcium 8.7 mg/dL (8.4-10.2); Carbon Dioxide 26 mmol/L (22-32); Chloride 103 mmol/L (98-107); Estimated Glomerular Filt Rate > 60 mL/min (>60); Globulin 3.1 g/dL (1.7-4.1); Glucose 96 mg/dL (70-99); HEMOLYSIS 16 (0-50); Potassium 4.0 mmol/L (3.4-5.1); Sodium 138 mmol/L (137-145); Total Protein 7.5 g/dL (6.3-8.2)
[2025-05-15 23:10] LABS: QuantiFERON Mitogen Value >10.00 IU/mL (.); QuantiFERON Nil Value 0.09 IU/mL (.); QuantiFERON TB Gold Plus Negative (Negative); QuantiFERON TB1 Ag Value 0.14 IU/mL (.); QuantiFERON TB2 Ag Value 0.15 IU/mL (.)
== END ==
PROVIDERS: PCP Internal Medicine; Referring Provider Internal Medicine; Visit Provider Dermatology
DX: L40.0 Psoriasis vulgaris (principal); L40.59 Other psoriatic arthropathy
CPT/HCPCS: 36415; 80053; 85025; 86480

== ENCOUNTER → 2025-05-29 14:15 | Outpatient (CLI) | payer OTHER, SELFPAY ==
--- NOTE | 2025-05-29 14:16 | DI.CT.S_ITS ---
PROCEDURE: CT LUNG LOW DOSE SCREENING INDICATIONS: Yearly Screening TECHNIQUE: Noncontrast 2.0-2.5 mm thick sections acquired from the pulmonary apices to the posterior costophrenic angles. 7 mm thick axial MIP, and 5 mm coronal and sagittal reformats were then acquired. For radiation dose reduction, the following was used: automated exposure control, adjustment of mA and/or kV according to patient size. COMPARISON: [facility], CT, CT LUNG LOW DOSE SCREENING, 06/10/2024, 16:03. FINDINGS: Image quality: Diagnostic Lungs and pleura: Scattered scarring and atelectasis. No airspace consolidation or pleural effusion. Many pulmonary nodules again seen for example and in the right lung Mediastinum, heart, and esophagus: Coronary calcifications. Aortic calcifications. No lymphadenopathy by size criteria. Unremarkable CT appearance of the esophagus. Chest wall and thyroid: No axillary lymph nodes enlarged by size criteria. Thyroid appears unremarkable Upper abdomen: Possible left lobe liver cysts partially seen. Cholecystectomy clips. Bones: No aggressive appearing osseous abnormality. There are degenerative changes. IMPRESSION: No suspicious pulmonary nodules. LUNG-RADS 2; continued annual screening, if eligible. Clinically Significant Non-pulmonary Findings: Coronary calcifications. Dictated by: Bk Garner M.D. on 05/31/2025 at 11:13 Approved by: Bk Garner M.D. on 05/31/2025 at 11:17
== END ==
LOC: CT 14:15
PROVIDERS: PCP Internal Medicine; Referring Provider Internal Medicine; Visit Provider Internal Medicine
DX: R91.8 Other nonspecific abnormal finding of lung field (principal); I25.10 Atherosclerotic heart disease of native coronary artery without angina pectoris; I70.0 Atherosclerosis of aorta; Z87.891 Personal history of nicotine dependence
CPT/HCPCS: 71271